=== PATIENT | female | born 1995 | race Caucasian/White ===

== ENCOUNTER 2017-06-08 08:56 | Emergency (ER) | payer MEDICAID ==
[2017-06-08 09:05] VITALS: BP 132/90; PULSE 86; RESP 16; TEMP 98
--- NOTE | 2017-06-08 09:29 | ED ---
General Adult HPI - General Chief complaint: Upper Respiratory Infection Stated complaint: Flu Time Seen by Provider: 06/08/17 09:13 Source: patient, RN notes reviewed Mode of arrival: ambulatory Limitations: no limitations - History of Present Illness Initial comments: Patient 22-year-old female who presents emergency room today with chief complaint of possible influenza. She does admit that she's been exposed to somebody with the flu. She states her symptoms started 4 days ago. Does admit some nausea no vomiting. Admits to chills and bodyaches. States that she's been using [id number] medications for her symptoms. Patient does admit to some cough congestion positive sputum production it's been green in color. She denies any other complaints or associated symptoms. Patient denies any recent shortness of breath, chest pain, back pain, abdominal pain, numbness or tingling, dysuria or hematuria, constipation or diarrhea, headaches or visual changes, or any other complaints. - Related Data Home Medications Medication Instructions Recorded Confirmed Dm/Acetaminophen/Doxylamine [Vicks 30 ml PO Q4H PRN 06/08/17 06/08/17 Nyquil Cold & Flu Liquid] Phenylephrine/Dm/Acetaminop/GG 30 ml PO Q4H PRN 06/08/17 06/08/17 [Vicks Dayquil Severe Cold-Flu] Previous Rx's Medication Instructions Recorded Ondansetron Odt [Zofran ODT] 4 mg PO Q8HR PRN #20 tab 06/08/17 Allergies Allergy/AdvReac Type Severity Reaction Status Date / Time No Known Allergies Allergy Verified 06/08/17 09:29 Review of Systems ROS Statement: Those systems with pertinent positive or pertinent negative responses have been documented in the HPI. ROS Other: All systems not noted in ROS Statement are negative. Past Medical History Past Medical History: No Reported History History of Any Multi-Drug Resistant Organisms: None Reported Past Surgical History: Tonsillectomy Past Psychological History: No Psychological Hx Reported Smoking Status: Never smoker Past Alcohol Use History: Occasional Past Drug Use History: None Reported General Exam - General Exam Comments Initial Comments: General: The patient is awake and alert, in no distress, and does not appear acutely ill. Eye: Pupils are equal, round and reactive to light, extra-ocular movements are intact. No nystagmus. There is normal conjunctiva bilaterally. No signs of icterus. Ears, nose, mouth and throat: There are moist mucous membranes and no oral lesions. Neck: The neck is supple, there is no tenderness or JVD. Cardiovascular: There is a regular rate and rhythm. No murmur, rub or gallop is appreciated. Respiratory: Lungs are clear to auscultation, respirations are non-labored, breath sounds are equal. No wheezes, stridor, rales, or rhonchi. Musculoskeletal: Normal ROM, no tenderness. Strength 5/5. Sensation intact. Pulses equal bilaterally 2+. Neurological: A&O x 3. CN II-XII intact, There are no obvious motor or sensory deficits. Coordination appears grossly intact. Speech is normal. Skin: Skin is warm and dry and no rashes or lesions are noted. Psychiatric: Cooperative, appropriate mood & affect, normal judgment. Limitations: no limitations Course Vital Signs 06/08/17 09:01 Temperature 98.0 F Pulse Rate 86 Respiratory 16 Rate Blood Pressure 132/90 O2 Sat by Pulse 99 Oximetry Medical Decision Making - Medical Decision Making Patient reexamined at this time shows no signs of distress. Resting comfortably. Patient does admit that the symptoms are 4 days ago. Does have body aches chills with cough congestion and some nausea. Was discussed about possible influenza. Was discussed about testing. At this time patient was outside the window for Tamiflu. She declined the nasal swab. Chest x-ray performed rule out pneumonia. Chest x-rays negative. Patient advised to increase oral fluids. Patient will be given nausea medication for symptoms. Otherwise follow-up family doctor return if symptoms increase worsen. - Lab Data Lab Results 06/08/17 Range/Units 09:30 Urine HCG, Qual Not Detected (Not Detectd) Disposition Clinical Impression: Influenza Disposition: HOME SELF-CARE Condition: Good Instructions: Influenza (ED) Additional Instructions: Please use medication as discussed. Please follow-up with family doctor in the next 2 days of symptoms have not improved. Please return to emergency room if the symptoms increase or worsen or for any other concerns. Prescriptions: Ondansetron Odt [Zofran ODT] 4 mg PO Q8HR PRN #20 tab PRN Reason: Nausea Referrals: Joe Morgan DO [Primary Care Provider] - 1-2 days Time of Disposition: 11:08
--- NOTE | 2017-06-08 10:44 | XR ---
EXAMINATION TYPE: XR chest 2V DATE OF EXAM: 06/08/2017 COMPARISON: None HISTORY: 22-year-old female with cough and congestion TECHNIQUE: PA and lateral views FINDINGS: The cardiomediastinal silhouette, aorta, and pulmonary vasculature are within normal limits. Lungs an d pleural spaces are clear. IMPRESSION: No acute cardiopulmonary process.
== END 2017-06-08 11:13 | disposition home or self-care (01) ==
LOC: EC 08:56
DX: J11.1 Influenza due to unidentified influenza virus with other respiratory manifestations (principal)
CPT/HCPCS: 71046; 81025; 99283

== ENCOUNTER → 2018-01-04 | Outpatient (CLI) | payer MEDICAID ==
--- NOTE | 2018-01-04 11:16 | USB ---
Reason for exam: clinical finding. Indicated problem(s): lump or thickening in the left breast. Physical Findings: Nurse Summary: left breast palpable 7 o'clock, 1 x 1cm, movable, tender, soft (nurse ts). US Breast LT Left complete breast ultrasound includes all four quadrants, the retroareolar region and axilla. Finding demonstrates a 2.9cm isoechoic area, possible lipoma 7 o'clock. These results were verbally communicated with the patient and result sheet given to the patient on 01/04/18. ASSESSMENT: Benign, BI-RAD 2 RECOMMENDATION: Routine screening mammogram of both breasts at age 39. Manage patient on a clinical basis.
== END | disposition home or self-care (01) ==
LOC: RADUSWWP 10:13
PROVIDERS: ATTEND Obstetrics & Gynecology
DX: N63.20 Unspecified lump in the left breast, unspecified quadrant (principal)

== ENCOUNTER 2018-02-28 20:28 | Emergency (ER) | payer MEDICAID ==
[2018-02-28] MEDS ORDERED: SODIUM CHLORIDE 0.9% 1,000 ML IV STA (21:55)
[2018-02-28] MEDS ORDERED: ACETAMINOPHEN TAB 500 MG TAB PO STA (22:17)
[2018-02-28] MEDS ORDERED: ONDANSETRON 4 MG/2 ML VIAL IVP STA (22:17)
[2018-02-28 22:20] LABS: Basophils % (A) 1 %; Eosinophils # (A) 0.1 k/uL (0-0.7); Eosinophils % (A) 2 %; HCT 42.1 % (34.0-46.0); Lymphocytes # (A) 1.5 k/uL (1.0-4.8); Lymphocytes % (A) 21 %; MCH 25.5 pg (25.0-35.0); MCHC 30.9 g/dL (31.0-37.0); MCV 82.5 fL (80.0-100.0); Mean Platelet Volume 6.6; Monocytes # (A) 0.4 k/uL (0-1.0); Monocytes % (A) 6 %; Neutrophils # (A) 4.8 k/uL (1.3-7.7); Neutrophils % (A) 69 %; Platelet Count 340 k/uL (150-450); RBC 5.11 m/uL (3.80-5.40); RDW 14.5 % (11.5-15.5)
[2018-02-28 22:29] LABS: ALT 19 U/L (9-52); AST 23 U/L (14-36); Albumin 4.1 g/dL (3.5-5.0); Alkaline Phosphatase 52 U/L (38-126); Amylase 54 U/L (30-110); Anion Gap 11 mmol/L; Blood Urea Nitrogen 12 mg/dL (7-17); Calcium 9.3 mg/dL (8.4-10.2); Carbon Dioxide 24 mmol/L (22-30); Chloride 105 mmol/L (98-107); Glucose 80 mg/dL (74-99); Lipase 82 U/L (23-300); Potassium 4.5 mmol/L (3.5-5.1); Sodium 140 mmol/L (137-145); Total Bilirubin 0.4 mg/dL (0.2-1.3); Total Protein 7.7 g/dL (6.3-8.2)
[2018-02-28 22:31] LABS: Appearance,Urine Clear (Clear); Bilirubin,Urine Negative (Negative); Blood,Urine Small (Negative); Calcium Oxalate Crystals,Urine Occasional /hpf; Color,Urine Yellow; Glucose,Urine (UA) Negative (Negative); Ketones,Urine Negative (Negative); Leukocyte Esterase,Urine Negative (Negative); Mucus,Urine Occasional /hpf; Nitrite,Urine Negative (Negative); Protein,Urine Trace (Negative); RBC,Urine 26 /hpf (0-5); Specific Gravity,Urine 1.024 (1.001-1.035); Squamous Epithelial Cell,Urine <1 /hpf (0-4)
[2018-02-28] MEDS ORDERED: KETOROLAC 30 MG/ML 1 ML VIAL IVP STA (22:48)
--- NOTE | 2018-02-28 23:07 | CT ---
EXAMINATION TYPE: CT abdomen pelvis wo con DATE OF EXAM: 02/28/2018 COMPARISON: None HISTORY: No prior, BAILEY with nausea, vomiting, diarrhea and right flank pain, low grade fever, history of renal stones, neg hcg, renal stone protocol CT DLP: 1299.40 mGycm Automated exposure control for dose reduction was used. TECHNIQUE: Helical acquisition of images was performed from the lung bases through the pelvis. FINDINGS: Lung bases are clear. There is no pleural effusion. Heart size is normal. There is no pericardial eff usion. Liver spleen pancreas gallbladder appear normal. Bile ducts are not dilated. Stomach appears normal. There is no adrenal mass. Kidneys have normal size and contour. There is no hydronephrosis. There is no retroperitoneal adenopathy. There are multiple enlarged mesenteric lymph nodes that measure up to 1.5 cm. The bladder is almost empty. Uterus is anteverted. The bony pelvis appears intact. Lumbar spi ne is intact. There is no evidence of a pelvic mass. There is no free fluid in the abdomen and pelvis . Appendix appears normal. I see no intestinal wall thickening. There are no dilated loops. There is 1 cm accessory spleen. Abdo yolis soft tissues are unremarkable. IMPRESSION: NO EVIDENCE OF RENAL STONE OR OBSTRUCTION. NO FREE FLUID. THERE IS MILD SMALL BOWEL MESENTERIC LYMPHADENOPATHY THAT IS NONSPECIFIC AND COULD RELATE TO INTESTIN AL INFLAMMATORY PROCESS.
[2018-02-28 23:44] VITALS: BP 110/63; PULSE 78; RESP 16; TEMP 99
--- NOTE | 2018-02-28 23:57 | ED ---
General Adult HPI - General Source: patient, RN notes reviewed Mode of arrival: ambulatory Limitations: no limitations <Oc Perez P - Last Filed: 03/01/18 00:27> <Trinidad Cody P - Last Filed: 03/01/18 03:55> - General Chief complaint: Nausea/Vomiting/Diarrhea Stated complaint: vomiting Time Seen by Provider: 02/28/18 21:18 - History of Present Illness Initial comments: 22-year-old female presents to the emergency department for multiple complaints. Patient states that starting yesterday around 3 PM she began to have nausea and vomiting. She states she also had diarrhea at that time. She states the diarrhea has resolved. She denies any abdominal pain. She states she also has a headache as well as achiness and right flank pain. Patient states she does have a history of migraines. She states her headache feels somewhat different than her migraines but she does have photophobia related. Patient states she usually gets 2-3 migraines a year. Patient states she has had multiple bouts of vomiting, diarrhea, and headache over the past month. She states it generally lasts for a few days and then subsides. She denies fevers or chills at home. She denies any urinary symptoms. She states she does have a history of kidney stones and felt like this the last time she had a stone. She states she would like to be evaluated for a stone at this time. Patient has no other complaints at this time including shortness of breath, chest pain, abdominal pain, or visual changes. (Oc Perez) - Related Data Home Medications Medication Instructions Recorded Confirmed LORazepam [Ativan] 0.5 mg PO HS 02/28/18 02/28/18 Levonorgestrel-Ethin Estradiol 1 tab PO DAILY 02/28/18 02/28/18 [Levora-28 Tablet] Levothyroxine Sodium [Synthroid] 50 mcg PO DAILY 02/28/18 02/28/18 Venlafaxine HCl ER [Effexor XR] 150 mg PO DAILY 02/28/18 02/28/18 lamoTRIgine [LaMICtal] 50 mg PO BID 02/28/18 02/28/18 Previous Rx's Medication Instructions Recorded Ondansetron [Zofran ODT] 4 mg PO Q8HR PRN #15 tab 03/01/18 Allergies Allergy/AdvReac Type Severity Reaction Status Date / Time No Known Allergies Allergy Verified 02/28/18 21:45 Review of Systems ROS Other: All systems not noted in ROS Statement are negative. <Oc Perez P - Last Filed: 03/01/18 00:27> ROS Other: All systems not noted in ROS Statement are negative. <Unruly Codyssica P - Last Filed: 03/01/18 03:55> ROS Statement: Those systems with pertinent positive or pertinent negative responses have been documented in the HPI. Past Medical History Past Medical History: Thyroid Disorder History of Any Multi-Drug Resistant Organisms: None Reported Past Surgical History: Tonsillectomy Past Psychological History: Anxiety, Depression Smoking Status: Never smoker Past Alcohol Use History: Occasional Past Drug Use History: None Reported <Oc Perez P - Last Filed: 03/01/18 00:27> General Exam Limitations: no limitations General appearance: alert, in no apparent distress Head exam: Present: atraumatic, normocephalic, normal inspection Eye exam: Present: normal appearance, PERRL, EOMI. Absent: scleral icterus, conjunctival injection, periorbital swelling ENT exam: Present: normal exam, mucous membranes moist Neck exam: Present: normal inspection, full ROM. Absent: tenderness, meningismus, lymphadenopathy Respiratory exam: Present: normal lung sounds bilaterally. Absent: respiratory distress, wheezes, rales, rhonchi, stridor Cardiovascular Exam: Present: regular rate, normal rhythm, normal heart sounds. Absent: systolic murmur, diastolic murmur, rubs, gallop, clicks GI/Abdominal exam: Present: soft, normal bowel sounds. Absent: distended, tenderness, guarding, rebound, rigid Neurological exam: Present: alert, oriented X3, CN II-XII intact, normal gait Expanded Patient oriented to: Present: person, place, time Speech: Present: fluid speech Cranial nerves: EOM's Intact: Normal, Nystagmus: Normal, Facial Sensation: Normal Sensory exam: Upper Extremity Light Touch: Normal, Upper Extremity Pin Prick: Normal, Lower Extremity Light Touch: Normal, Lower Extremity Pin Prick: Normal Motor strength exam: RUE: 5, LUE: 5, RLE: 5, LLE: 5 Eye Response: (4) open spontaneously Motor Response: (6) obeys commands Verbal Response: (5) oriented [place] Total: 15 Psychiatric exam: Present: normal affect, normal mood <Oc Perez P - Last Filed: 03/01/18 00:27> Vital Signs 02/28/18 02/28/18 20:45 23:40 Temperature 99.4 F 99.0 F Pulse Rate 115 H 78 Respiratory 18 16 Rate Blood Pressure 125/82 110/63 O2 Sat by Pulse 94 L 97 Oximetry Medical Decision Making - Lab Data Result diagrams: 02/28/18 21:31 02/28/18 21:31 <Oc Perez P - Last Filed: 03/01/18 00:27> - Lab Data Result diagrams: 02/28/18 21:31 02/28/18 21:31 <Trinidad Cody P - Last Filed: 03/01/18 03:55> - Medical Decision Making 22-year-old female presents to the emergency department for complaints. Patient is experiencing nausea and vomiting since yesterday. She also has had diarrhea starting which has now resolved patient admits to a mild headache and states she has a history of migraines. Patient does have photophobia at this time. Patient also complains of flank pain and achiness. On exam patient does not have any abdominal tenderness and denies abdominal pain. She does not have any CVA tenderness. She is well appearing. She does have a low-grade temperature and was given Tylenol. CBC and CMP are unremarkable. Urine does not show any evidence of infection. Influenza is negative. CT abdomen and pelvis without contrast was ordered because patient didn't want to be evaluated for kidney stones as her symptoms were consistent with kidney stones in the past. On CT there is no evidence of renal stone. However there is mild small bowel mesenteric lymphadenopathy. Due to patient's vomiting and diarrhea as well as low-grade fever she may have a viral stratus. I did also discuss possibility of food ALLERGY. On reevaluation patient states she is having much better after receiving fluids and medication. Patient will be given Zofran at home for use. She will follow up with GI in 1-2 days. Mother aware to monitor for worsening fever or any other worsening symptoms and to return if these occur. (Oc Perez) I was available for consultation in the emergency department. The history and physical exam were done by the midlevel provider. I was consulted for this patient's care. I reviewed the case with the midlevel provider and based on their presentation of the patient, I agree with the assessment, medical decision making and plan of care as documented. (Trinidad Cody) - Lab Data Lab Results 02/28/18 02/28/18 02/28/18 Range/Units 21:31 21:31 21:31 WBC 7.0 (3.8-10.6) k/uL RBC 5.11 (3.80-5.40) m/uL Hgb 13.0 (11.4-16.0) gm/dL Hct 42.1 (34.0-46.0) % MCV 82.5 (80.0-100.0) fL MCH 25.5 (25.0-35.0) pg MCHC 30.9 L (31.0-37.0) g/dL RDW 14.5 (11.5-15.5) % Plt Count 340 (150-450) k/uL Neutrophils % 69 % Lymphocytes % 21 % Monocytes % 6 % Eosinophils % 2 % Basophils % 1 % Neutrophils # 4.8 (1.3-7.7) k/uL Lymphocytes # 1.5 (1.0-4.8) k/uL Monocytes # 0.4 (0-1.0) k/uL Eosinophils # 0.1 (0-0.7) k/uL Basophils # 0.0 (0-0.2) k/uL Sodium 140 (137-145) mmol/L Potassium 4.5 (3.5-5.1) mmol/L Chloride 105 (98-107) mmol/L Carbon Dioxide 24 (22-30) mmol/L Anion Gap 11 mmol/L BUN 12 (7-17) mg/dL Creatinine 0.88 (0.52-1.04) mg/dL Est GFR (CKD-EPI)AfAm >90 (>60 ml/min/1.73 sqM) Est GFR (CKD-EPI)NonAf >90 (>60 ml/min/1.73 sqM) Glucose 80 (74-99) mg/dL Plasma Lactic Acid Von 1.9 (0.7-2.0) mmol/L Calcium 9.3 (8.4-10.2) mg/dL Total Bilirubin 0.4 (0.2-1.3) mg/dL AST 23 (14-36) U/L ALT 19 (9-52) U/L Alkaline Phosphatase 52 (38-126) U/L Total Protein 7.7 (6.3-8.2) g/dL Albumin 4.1 (3.5-5.0) g/dL Amylase 54 (30-110) U/L Lipase 82 (23-300) U/L Urine Color Urine Appearance (Clear) Urine pH (5.0-8.0) Ur Specific [place] (1.001-1.035) Urine Protein (Negative) Urine Glucose (UA) (Negative) Urine Ketones (Negative) Urine Blood (Negative) Urine Nitrite (Negative) Urine Bilirubin (Negative) Urine Urobilinogen (<2.0) mg/dL Ur Leukocyte Esterase (Negative) Urine RBC (0-5) /hpf Ur Squamous Epith Cells (0-4) /hpf Calcium Oxalate Crystal (None) /hpf Urine Mucus (None) /hpf Urine HCG, Qual (Not Detectd) Influenza Type A RNA (Not Detectd) Influenza Type B (PCR) (Not Detectd) 02/28/18 02/28/18 02/28/18 Range/Units 22:13 22:13 23:08 WBC (3.8-10.6) k/uL RBC (3.80-5.40) m/uL Hgb (11.4-16.0) gm/dL Hct (34.0-46.0) % MCV (80.0-100.0) fL MCH (25.0-35.0) pg MCHC (31.0-37.0) g/dL RDW (11.5-15.5) % Plt Count (150-450) k/uL Neutrophils % % Lymphocytes % % Monocytes % % Eosinophils % % Basophils % % Neutrophils # (1.3-7.7) k/uL Lymphocytes # (1.0-4.8) k/uL Monocytes # (0-1.0) k/uL Eosinophils # (0-0.7) k/uL Basophils # (0-0.2) k/uL Sodium (137-145) mmol/L Potassium (3.5-5.1) mmol/L Chloride (98-107) mmol/L Carbon Dioxide (22-30) mmol/L Anion Gap mmol/L BUN (7-17) mg/dL Creatinine (0.52-1.04) mg/dL Est GFR (CKD-EPI)AfAm (>60 ml/min/1.73 sqM) Est GFR (CKD-EPI)NonAf (>60 ml/min/1.73 sqM) Glucose (74-99) mg/dL Plasma Lactic Acid Von (0.7-2.0) mmol/L Calcium (8.4-10.2) mg/dL Total Bilirubin (0.2-1.3) mg/dL AST (14-36) U/L ALT (9-52) U/L Alkaline Phosphatase (38-126) U/L Total Protein (6.3-8.2) g/dL Albumin (3.5-5.0) g/dL Amylase (30-110) U/L Lipase (23-300) U/L Urine Color Yellow Urine Appearance Clear (Clear) Urine pH 6.0 (5.0-8.0) Ur Specific [place] 1.024 (1.001-1.035) Urine Protein Trace H (Negative) Urine Glucose (UA) Negative (Negative) Urine Ketones Negative (Negative) Urine Blood Small H (Negative) Urine Nitrite Negative (Negative) Urine Bilirubin Negative (Negative) Urine Urobilinogen 2.0 (<2.0) mg/dL Ur Leukocyte Esterase Negative (Negative) Urine RBC 26 H (0-5) /hpf Ur Squamous Epith Cells <1 (0-4) /hpf Calcium Oxalate Crystal Occasional H (None) /hpf Urine Mucus Occasional H (None) /hpf Urine HCG, Qual Not Detected (Not Detectd) Influenza Type A RNA Not Detected (Not Detectd) Influenza Type B (PCR) Not Detected (Not Detectd) Disposition Is patient prescribed a controlled substance at d/c from ED?: No Time of Disposition: 00:17 <Oc Perez P - Last Filed: 03/01/18 00:27> <Trinidad Cody P - Last Filed: 03/01/18 03:55> Clinical Impression: Mesenteric lymphadenitis, Nausea, vomiting, and diarrhea Disposition: HOME SELF-CARE Condition: Good Instructions: Acute Nausea and Vomiting (ED) Additional Instructions: Please take Zofran for nausea. Please take Motrin and Tylenol for fever. Follow up with GI in 1-2 days. Keep a food diary until you see GI. Return to the emergency department if you have any worsening symptoms. Prescriptions: Ondansetron [Zofran ODT] 4 mg PO Q8HR PRN #15 tab PRN Reason: Nausea Referrals: Joe Morgan DO [Primary Care Provider] - 1-2 days Deondre Dominguez MD [STAFF PHYSICIAN] - 1-2 days
[2018-03-01] MEDS ORDERED: ONDANSETRON 4 MG ODT STARTER PACK 2 TAB BTL PO STA (00:30)
== END 2018-03-01 00:36 | disposition home or self-care (01) ==
LOC: EC 20:28
DX: I88.0 Nonspecific mesenteric lymphadenitis (principal); R51 Headache; H53.149 Visual discomfort, unspecified; E07.9 Disorder of thyroid, unspecified; F41.9 Anxiety disorder, unspecified; F32.9 Major depressive disorder, single episode, unspecified; Z79.899 Other long term (current) drug therapy; Z79.3 Long term (current) use of hormonal contraceptives
CPT/HCPCS: 99284; 96374; 96375; 96361; 36415; 80053; 82150; 83605; 83690; 85025; 81001; 81025; 87502; 74176; J2405; J1885; S0119

== ENCOUNTER 2018-11-06 17:51 | Emergency (ER) | payer MEDICAID ==
[2018-11-06 18:05] VITALS: RESP 18
[2018-11-06] MEDS ORDERED: ONDANSETRON 4 MG/2 ML VIAL IVP STA (18:56)
[2018-11-06] MEDS ORDERED: SODIUM CHLORIDE 0.9% 1,000 ML IV ONE (18:56)
[2018-11-06] MEDS ORDERED: KETOROLAC 30 MG/ML 1 ML VIAL IVP STA (18:56)
[2018-11-06] MEDS ORDERED: MORPHINE SULFATE 4 MG/ML SYRINGE IVP STA (18:56)
--- NOTE | 2018-11-06 19:10 | ED ---
Abdominal Pain HPI - General Chief Complaint: Abdominal Pain Stated Complaint: kidney pain Time Seen by Provider: 11/06/18 18:32 Source: patient Mode of arrival: ambulatory - History of Present Illness Initial Comments: Patient is a 23-year-old female presents with a chief complaint of right-sided flank pain. She says this started at 3:00 this afternoon. She has a history of kidney stones on the left side and states this feels similar. She cannot identify an inciting incident. No aggravating or alleviating factors. Pain is characterized as sharp. Patient denies fever, chills, admits to nausea and vomiting. She denies dysuria or frequency. - Related Data Home Medications Medication Instructions Recorded Confirmed Levothyroxine Sodium [Synthroid] 50 mcg PO DAILY 02/28/18 11/06/18 Venlafaxine HCl ER [Effexor XR] 150 mg PO DAILY 02/28/18 11/06/18 [place] 1 tab PO DAILY 11/06/18 11/06/18 QUEtiapine [SEROquel] 25 mg PO HS 11/06/18 11/06/18 lamoTRIgine [LaMICtal] 150 mg PO BID 11/06/18 11/06/18 Previous Rx's Medication Instructions Recorded HYDROcodone/APAP 5-325MG [[place] 1 tab PO Q6HR PRN 3 Days #12 tab 11/06/18 5-325] Ibuprofen [Motrin] 800 mg PO TID #20 tab 11/06/18 Ondansetron Odt [Zofran Odt] 4 mg PO Q8HR PRN #12 tab 11/06/18 Allergies Allergy/AdvReac Type Severity Reaction Status Date / Time Milk Containing Products Allergy Nausea & Verified 11/06/18 18:45 [Dairy] Vomiting & Diarrhea Review of Systems ROS Statement: Those systems with pertinent positive or pertinent negative responses have been documented in the HPI. ROS Other: All systems not noted in ROS Statement are negative. Gastrointestinal: Reports: abdominal pain, nausea, vomiting Musculoskeletal: Reports: back pain Past Medical History Past Medical History: Thyroid Disorder Additional Past Medical History / Comment(s): kidney stones History of Any Multi-Drug Resistant Organisms: None Reported Past Surgical History: Tonsillectomy Past Psychological History: Anxiety, Depression Smoking Status: Never smoker Past Alcohol Use History: Occasional Past Drug Use History: None Reported General Exam Limitations: no limitations General appearance: alert, in no apparent distress Head exam: Present: atraumatic, normocephalic Eye exam: Present: normal appearance ENT exam: Present: normal exam Neck exam: Present: normal inspection Respiratory exam: Present: normal lung sounds bilaterally. Absent: respiratory distress, wheezes Cardiovascular Exam: Present: regular rate, normal rhythm GI/Abdominal exam: Present: soft, tenderness (Patient has tenderness to palpation in the epigastric region, and the suprapubic region). Absent: distended Rectal exam: Present: deferred Extremities exam: Present: normal inspection Back exam: Present: normal inspection, CVA tenderness (R). Absent: CVA tenderness (L) Neurological exam: Present: alert, oriented X3 Psychiatric exam: Present: normal affect, normal mood Skin exam: Present: warm, dry, intact Course Vital Signs 11/06/18 18:02 Temperature 97.6 F Pulse Rate 69 Respiratory 18 Rate Blood Pressure 141/93 O2 Sat by Pulse 95 Oximetry Medical Decision Making - Medical Decision Making Patient presents with a chief complaint of flank pain. On initial evaluation, vitals are stable, patient is in mild to moderate distress secondary to pain. Concern for a structural renal stone this time. Patient to be evaluated with basic labs including urinalysis and urine test. She'll be sent for a computed tomography scan of the abdomen and pelvis without contrast. She was given fluids, Toradol, morphine and Zofran. 9:[address] shows a small distal ureteral calculus in the distal ureter. labs are unremarkable, no evidence of UTI. on re-evaluation, patient feels better. at this time, she is stable for discharge. she was instructed to follow up with [facility] in 1-2 days, return to the ED if sx worsen or change. - Lab Data Result diagrams: 11/06/18 19:20 11/06/18 19:20 Lab Results 11/06/18 11/06/18 11/06/18 Range/Units 19:20 19:20 20:15 WBC 16.3 H (3.8-10.6) k/uL RBC 5.15 (3.80-5.40) m/uL Hgb 12.9 (11.4-16.0) gm/dL Hct 39.8 (34.0-46.0) % MCV 77.3 L (80.0-100.0) fL MCH 25.1 (25.0-35.0) pg MCHC 32.5 (31.0-37.0) g/dL RDW 14.8 (11.5-15.5) % Plt Count 379 (150-450) k/uL Neutrophils % 78 % Lymphocytes % 15 % Monocytes % 5 % Eosinophils % 1 % Basophils % 0 % Neutrophils # 12.8 H (1.3-7.7) k/uL Lymphocytes # 2.4 (1.0-4.8) k/uL Monocytes # 0.7 (0-1.0) k/uL Eosinophils # 0.1 (0-0.7) k/uL Basophils # 0.1 (0-0.2) k/uL Microcytosis Slight Sodium 140 (137-145) mmol/L Potassium 4.4 (3.5-5.1) mmol/L Chloride 107 (98-107) mmol/L Carbon Dioxide 19 L (22-30) mmol/L Anion Gap 14 mmol/L BUN 10 (7-17) mg/dL Creatinine 0.84 (0.52-1.04) mg/dL Est GFR (CKD-EPI)AfAm >90 (>60 ml/min/1.73 sqM) Est GFR (CKD-EPI)NonAf >90 (>60 ml/min/1.73 sqM) Glucose 88 (74-99) mg/dL Calcium 9.4 (8.4-10.2) mg/dL Total Bilirubin 0.6 (0.2-1.3) mg/dL AST 28 (14-36) U/L ALT 16 (9-52) U/L Alkaline Phosphatase 74 (38-126) U/L Total Protein 8.1 (6.3-8.2) g/dL Albumin 4.5 (3.5-5.0) g/dL Urine Color Urine Appearance (Clear) Urine pH (5.0-8.0) Ur Specific [place] (1.001-1.035) Urine Protein (Negative) Urine Glucose (UA) (Negative) Urine Ketones (Negative) Urine Blood (Negative) Urine Nitrite (Negative) Urine Bilirubin (Negative) Urine Urobilinogen (<2.0) mg/dL Ur Leukocyte Esterase (Negative) Urine RBC (0-5) /hpf Urine WBC (0-5) /hpf Ur Squamous Epith Cells (0-4) /hpf Urine Mucus (None) /hpf Urine HCG, Qual Not Detected (Not Detectd) 11/06/18 Range/Units 20:15 WBC (3.8-10.6) k/uL RBC (3.80-5.40) m/uL Hgb (11.4-16.0) gm/dL Hct (34.0-46.0) % MCV (80.0-100.0) fL MCH (25.0-35.0) pg MCHC (31.0-37.0) g/dL RDW (11.5-15.5) % Plt Count (150-450) k/uL Neutrophils % % Lymphocytes % % Monocytes % % Eosinophils % % Basophils % % Neutrophils # (1.3-7.7) k/uL Lymphocytes # (1.0-4.8) k/uL Monocytes # (0-1.0) k/uL Eosinophils # (0-0.7) k/uL Basophils # (0-0.2) k/uL Microcytosis Sodium (137-145) mmol/L Potassium (3.5-5.1) mmol/L Chloride (98-107) mmol/L Carbon Dioxide (22-30) mmol/L Anion Gap mmol/L BUN (7-17) mg/dL Creatinine (0.52-1.04) mg/dL Est GFR (CKD-EPI)AfAm (>60 ml/min/1.73 sqM) Est GFR (CKD-EPI)NonAf (>60 ml/min/1.73 sqM) Glucose (74-99) mg/dL Calcium (8.4-10.2) mg/dL Total Bilirubin (0.2-1.3) mg/dL AST (14-36) U/L ALT (9-52) U/L Alkaline Phosphatase (38-126) U/L Total Protein (6.3-8.2) g/dL Albumin (3.5-5.0) g/dL Urine Color Yellow Urine Appearance Clear (Clear) Urine pH 7.0 (5.0-8.0) Ur Specific [place] 1.011 (1.001-1.035) Urine Protein Negative (Negative) Urine Glucose (UA) Negative (Negative) Urine Ketones Trace H (Negative) Urine Blood Small H (Negative) Urine Nitrite Negative (Negative) Urine Bilirubin Negative (Negative) Urine Urobilinogen <2.0 (<2.0) mg/dL Ur Leukocyte Esterase Negative (Negative) Urine RBC 12 H (0-5) /hpf Urine WBC 3 (0-5) /hpf Ur Squamous Epith Cells <1 (0-4) /hpf Urine Mucus Rare H (None) /hpf Urine HCG, Qual (Not Detectd) Disposition Clinical Impression: Calculus of kidney Disposition: HOME SELF-CARE Condition: Good Instructions (If sedation given, give patient instructions): Kidney Stones (ED) Is patient prescribed a controlled substance at d/c from ED?: Yes When asked, does pt state using other controlled substances?: No If prescribed controlled substance>3 days was MAPS reviewed?: Prescribed <3 Days If opioid is for acute pain is fill amount 7 days or less?: Yes If Rx opioid, was Start Talking consent form obtained?: Yes Referrals: Joe Morgan DO [Primary Care Provider] - 1-2 days
[2018-11-06 19:59] LABS: Basophils # (A) 0.1 k/uL (0-0.2); Basophils % (A) 0 %; Eosinophils # (A) 0.1 k/uL (0-0.7); Eosinophils % (A) 1 %; HCT 39.8 % (34.0-46.0); HGB 12.9 gm/dL (11.4-16.0); Lymphocytes # (A) 2.4 k/uL (1.0-4.8); Lymphocytes % (A) 15 %; MCH 25.1 pg (25.0-35.0); MCHC 32.5 g/dL (31.0-37.0); MCV 77.3 fL (80.0-100.0); Mean Platelet Volume 6.5; Microcytosis Slight; Monocytes # (A) 0.7 k/uL (0-1.0); Monocytes % (A) 5 %; Neutrophils # (A) 12.8 k/uL (1.3-7.7); Neutrophils % (A) 78 %; Platelet Count 379 k/uL (150-450); RBC 5.15 m/uL (3.80-5.40); RDW 14.8 % (11.5-15.5); WBC 16.3 k/uL (3.8-10.6)
[2018-11-06 20:03] LABS: ALT 16 U/L (9-52); AST 28 U/L (14-36); African American GFR (CKD) >90 (>60 ml/min/1.73 sqM); Albumin 4.5 g/dL (3.5-5.0); Alkaline Phosphatase 74 U/L (38-126); Anion Gap 14 mmol/L; Blood Urea Nitrogen 10 mg/dL (7-17); Calcium 9.4 mg/dL (8.4-10.2); Carbon Dioxide 19 mmol/L (22-30); Chloride 107 mmol/L (98-107); Glucose 88 mg/dL (74-99); Potassium 4.4 mmol/L (3.5-5.1); Sodium 140 mmol/L (137-145); Total Bilirubin 0.6 mg/dL (0.2-1.3); Total Protein 8.1 g/dL (6.3-8.2)
[2018-11-06 20:46] LABS: Appearance,Urine Clear (Clear); Bilirubin,Urine Negative (Negative); Blood,Urine Small (Negative); Color,Urine Yellow; Glucose,Urine (UA) Negative (Negative); Ketones,Urine Trace (Negative); Leukocyte Esterase,Urine Negative (Negative); Mucus,Urine Rare /hpf; Nitrite,Urine Negative (Negative); Protein,Urine Negative (Negative); RBC,Urine 12 /hpf (0-5); Specific Gravity,Urine 1.011 (1.001-1.035); Squamous Epithelial Cell,Urine <1 /hpf (0-4); Urobilinogen,Urine <2.0 mg/dL (<2.0)
--- NOTE | 2018-11-06 21:32 | CT ---
EXAMINATION TYPE: CT renal stones wo con DATE OF EXAM: 11/06/2018 HISTORY: Right side flank pain. CT DLP: 1511.4 mGycm. Automated Exposure Control for Dose Reduction was Utilized. TECHNIQUE: CT scan of the abdomen and pelvis is performed without oral or IV contrast. COMPARISON: 02/28/2018 FINDINGS: There is some patchy atelectasis at the posterior lung bases. Liver spleen pancreas appear normal. Gallbladder is large. Bile ducts are not dilated. Gallbladder measures 4.5 cm in diameter. There is no adrenal mass. There is right-sided hydronephrosis and hydroureter. There is probably a 3 mm calculus at the right ureterovesical junction. Bladder distends smoothly. There is no retroperiton eal adenopathy. There is 2 mm calculus interpolar left kidney. There is 2 mm calculus central left ki dney. Appendix appears normal. There is no inguinal hernia. There is no ascites or free air. There is no me senteric edema. Lumbar spine appears intact. Bony pelvis is intact. IMPRESSION: Small nonobstructing left renal calculi appear new compared to old exam. Small obstructing calculus d istal right ureter is new compared to old exam. Normal appendix.
[2018-11-06 22:07] VITALS: BP 136/89; PULSE 75; TEMP 98.4
== END 2018-11-06 22:06 | disposition home or self-care (01) ==
LOC: EC 17:51
DX: N20.2 Calculus of kidney with calculus of ureter (principal); E07.9 Disorder of thyroid, unspecified; F32.9 Major depressive disorder, single episode, unspecified; F41.9 Anxiety disorder, unspecified; Z91.011 Allergy to milk products; Z79.3 Long term (current) use of hormonal contraceptives; Z79.890 Hormone replacement therapy; Z79.899 Other long term (current) drug therapy
CPT/HCPCS: 99284; 96374; 96375 ×2; 96361; 36415; 80053; 85025; 81001; 81025; 74150; J2270; J2405; J1885

== ENCOUNTER → 2018-12-08 | Outpatient (CLI) | payer MEDICAID ==
--- NOTE | 2018-12-08 09:53 | XR ---
EXAMINATION TYPE: XR KUB DATE OF EXAM: 12/08/2018 COMPARISON: 11/12/2014, CT scan 11/06/2018 HISTORY: Pain TECHNIQUE: One view abdominal series FINDINGS: The osseous structures are intact. The bowel gas pattern is nonspecific. No suspicious calcification s noted calcification in the left pelvis is present on the prior exam 2015 vascular.. IMPRESSION: 1. Nonspecific abdomen. Calcifications noted by CT scan are not well seen by standard x-ray
== END | disposition home or self-care (01) ==
LOC: RADXRMAIN 09:34
PROVIDERS: ATTEND Urology
DX: N94.89 Other specified conditions associated with female genital organs and menstrual cycle (principal)
CPT/HCPCS: 74018

== ENCOUNTER 2018-12-15 08:56 | Observation (INO) | payer MEDICAID ==
[2018-12-15] MEDS ORDERED: SODIUM CHLORIDE 0.9% 1,000 ML IV STA (09:01)
--- NOTE | 2018-12-15 09:02 | ED ---
GI Bleed HPI - General Chief complaint: GI Bleed Stated complaint: Vomiting blood Time Seen by Provider: 12/15/18 09:01 Source: patient Mode of arrival: ambulatory Limitations: no limitations - History of Present Illness Initial comments: 23-year-old female presenting today for chief complaint of blood in vomit. Patient states she has had chronic vomiting for the past few months, she initially thought it was a sensitivity to food. Patient states that the episodes usually occur in the morning. Patient states that about 4 days ago she episode of brown coffee like vomit. She states that today she had bright red blood mixed with brown coffee ground vomit. Other is a nurse was concerned that this was coffee-ground emesis concerning for upper GI bleed and recommended patient come to emergency department. She denies any chest pain shortness of b reath. She denies any severe abdominal pain she states there is an occasional crampy pain in the abdomen. Patient denies . She denies fevers recent travel. Remaining review of systems negative. Upon arrival patient is hemodynamically stable she appears nontoxic. - Related Data Home Medications Medication Instructions Recorded Confirmed Levothyroxine Sodium [Synthroid] 50 mcg PO DAILY 02/28/18 11/06/18 Venlafaxine HCl ER [Effexor XR] 150 mg PO DAILY 02/28/18 11/06/18 [place] 1 tab PO DAILY 11/06/18 11/06/18 QUEtiapine [SEROquel] 25 mg PO HS 11/06/18 11/06/18 lamoTRIgine [LaMICtal] 150 mg PO BID 11/06/18 11/06/18 Previous Rx's Medication Instructions Recorded HYDROcodone/APAP 5-325MG [[place] 1 tab PO Q6HR PRN 3 Days #12 tab 11/06/18 5-325] Ibuprofen [Motrin] 800 mg PO TID #20 tab 11/06/18 Ondansetron Odt [Zofran Odt] 4 mg PO Q8HR PRN #12 tab 11/06/18 Allergies Allergy/AdvReac Type Severity Reaction Status Date / Time Milk Containing Products Allergy Nausea & Verified 12/15/18 09:00 [Dairy] Vomiting & Diarrhea Review of Systems ROS Statement: Those systems with pertinent positive or pertinent negative responses have been documented in the HPI. ROS Other: All systems not noted in ROS Statement are negative. Past Medical History Past Medical History: Thyroid Disorder Additional Past Medical History / Comment(s): kidney stones History of Any Multi-Drug Resistant Organisms: None Reported Past Surgical History: Tonsillectomy Past Psychological History: Anxiety, Depression Smoking Status: Never smoker Past Alcohol Use History: Occasional Past Drug Use History: None Reported General Exam - General Exam Comments Initial Comments: General: The patient is awake and alert, in no distress Eye: Pupils are equal, round and reactive to light, extra-ocular movements are intact. No nystagmus. There is normal conjunctiva bilaterally. No signs of icterus. Ears, nose, mouth and throat: There are moist mucous membranes and no oral le sions. Neck: The neck is supple, there is no tenderness or JVD. Cardiovascular: There is a regular rate and rhythm. No murmur, rub or gallop is appreciated. Respiratory: Lungs are clear to auscultation, respirations are non-labored, breath sounds are equal. No wheezes, stridor, rales, or rhonchi. Gastrointestinal: Soft, non-distended, non-tender abdomen without masses or organomegaly noted. There is no rebound or guarding present. No CVA tenderness. Bowel sounds are unremarkable Musculoskeletal: Normal ROM, no tenderness. Strength 5/5. Sensation intact. Radial pulses equal bilaterally 2+. Neurological: A&O x 3. CN II-XII intact, There are no obvious motor or sensory deficits. Coordination appears grossly intact. Speech is normal. Skin: Skin is warm and dry and no rashes or lesions are noted. Psychiatric: Cooperative, appropriate mood & affect, normal judgment. Limitations: no limitations Course Vital Signs 12/15/18 12/15/18 08:57 11:08 Temperature 97.9 F 97.7 F Pulse Rate 71 67 Respiratory 20 16 Rate Blood Pressure 148/100 154/95 O2 Sat by Pulse 97 98 Oximetry Medical Decision Making - Medical Decision Making 23-year-old female presenting today for chief complaint of blood in vomit. Patient states she has had multiple abscesses of bright red blood today. Patient states she has had issues with cyclical vomiting. Patient states she has not been official diagnosis but this has been ongoing issue. Patient denies any significant abdominal pain. Patient denies any chest pain. Patient denies diarrhea. Patient denies fever. When the vomiting persisted she presented to the ER. Hemoglobin stable blood pressure stable upon arrival patient is hemodynamically stable. Patient does not appear acutely ill. However did begin complaining of epigastric pain. At this time chest x-ray was obtained revealing no evidence of pneumomediastinum. CT of the abdomen and pelvis obtained at this time revealing no acute abnormalities aside from kidney stones the patient was aware of. No obstructing stones. Patient was given Protonix and IV hydration emergency, as well as pain meds and antiemetics. I discussed the case with Dr. Dumont as well as accepting physician Dr. Goodson who accepted admission. GI on consult. Findings of CT as well as ultrasound is discussed with patient she was agreeable to admission - Lab Data Result diagrams: 12/15/18 09:21 12/15/18 09:21 Lab Results 12/15/18 12/15/18 12/15/18 Range/Units 09:21 09:21 09:21 WBC 11.8 H (3.8-10.6) k/uL RBC 4.98 (3.80-5.40) m/uL Hgb 12.6 (11.4-16.0) gm/dL Hct 39.6 (34.0-46.0) % MCV 79.6 L (80.0-100.0) fL MCH 25.2 (25.0-35.0) pg MCHC 31.7 (31.0-37.0) g/dL RDW 16.1 H (11.5-15.5) % Plt Count 388 (150-450) k/uL Neutrophils % 69 % Lymphocytes % 22 % Monocytes % 4 % Eosinophils % 3 % Basophils % 1 % Neutrophils # 8.2 H (1.3-7.7) k/uL Lymphocytes # 2.6 (1.0-4.8) k/uL Monocytes # 0.5 (0-1.0) k/uL Eosinophils # 0.3 (0-0.7) k/uL Basophils # 0.1 (0-0.2) k/uL Anisocytosis Slight PT 10.7 (9.0-12.0) sec INR 1.0 (<1.2) APTT 23.2 (22.0-30.0) sec Sodium 142 (137-145) mmol/L Potassium 4.2 (3.5-5.1) mmol/L Chloride 108 H (98-107) mmol/L Carbon Dioxide 21 L (22-30) mmol/L Anion Gap 13 mmol/L BUN 7 (7-17) mg/dL Creatinine 0.81 (0.52-1.04) mg/dL Est GFR (CKD-EPI)AfAm >90 (>60 ml/min/1.73 sqM) Est GFR (CKD-EPI)NonAf >90 (>60 ml/min/1.73 sqM) Glucose 107 H (74-99) mg/dL Calcium 9.4 (8.4-10.2) mg/dL Total Bilirubin 0.3 (0.2-1.3) mg/dL AST 14 (14-36) U/L ALT 17 (9-52) U/L Alkaline Phosphatase 58 (38-126) U/L Troponin I (0.000-0.034) ng/mL Total Protein 7.5 (6.3-8.2) g/dL Albumin 4.2 (3.5-5.0) g/dL Urine Color Urine Appearance (Clear) Urine pH (5.0-8.0) Ur Specific [place] (1.001-1.035) Urine Protein (Negative) Urine Glucose (UA) (Negative) Urine Ketones (Negative) Urine Blood (Negative) Urine Nitrite (Negative) Urine Bilirubin (Negative) Urine Urobilinogen (<2.0) mg/dL Ur Leukocyte Esterase (Negative) Urine HCG, Qual (Not Detectd) Gastric Occult Blood (Negative) 12/15/18 12/15/18 12/15/18 Range/Units 09:21 11:10 11:10 WBC (3.8-10.6) k/uL RBC (3.80-5.40) m/uL Hgb (11.4-16.0) gm/dL Hct (34.0-46.0) % MCV (80.0-100.0) fL MCH (25.0-35.0) pg MCHC (31.0-37.0) g/dL RDW (11.5-15.5) % Plt Count (150-450) k/uL Neutrophils % % Lymphocytes % % Monocytes % % Eosinophils % % Basophils % % Neutrophils # (1.3-7.7) k/uL Lymphocytes # (1.0-4.8) k/uL Monocytes # (0-1.0) k/uL Eosinophils # (0-0.7) k/uL Basophils # (0-0.2) k/uL Anisocytosis PT (9.0-12.0) sec INR (<1.2) APTT (22.0-30.0) sec Sodium (137-145) mmol/L Potassium (3.5-5.1) mmol/L Chloride (98-107) mmol/L Carbon Dioxide (22-30) mmol/L Anion Gap mmol/L BUN (7-17) mg/dL Creatinine (0.52-1.04) mg/dL Est GFR (CKD-EPI)AfAm (>60 ml/min/1.73 sqM) Est GFR (CKD-EPI)NonAf (>60 ml/min/1.73 sqM) Glucose (74-99) mg/dL Calcium (8.4-10.2) mg/dL Total Bilirubin (0.2-1.3) mg/dL AST (14-36) U/L ALT (9-52) U/L Alkaline Phosphatase (38-126) U/L Troponin I <0.012 (0.000-0.034) ng/mL Total Protein (6.3-8.2) g/dL Albumin (3.5-5.0) g/dL Urine Color Yellow Urine Appearance Clear (Clear) Urine pH 6.5 (5.0-8.0) Ur Specific [place] 1.017 (1.001-1.035) Urine Protein Trace H (Negative) Urine Glucose (UA) Negative (Negative) Urine Ketones Negative (Negative) Urine Blood Negative (Negative) Urine Nitrite Negative (Negative) Urine Bilirubin Negative (Negative) Urine Urobilinogen <2.0 (<2.0) mg/dL Ur Leukocyte Esterase Negative (Negative) Urine HCG, Qual Not Detected (Not Detectd) Gastric Occult Blood (Negative) 12/15/18 Range/Units 11:45 WBC (3.8-10.6) k/uL RBC (3.80-5.40) m/uL Hgb (11.4-16.0) gm/dL Hct (34.0-46.0) % MCV (80.0-100.0) fL MCH (25.0-35.0) pg MCHC (31.0-37.0) g/dL RDW (11.5-15.5) % Plt Count (150-450) k/uL Neutrophils % % Lymphocytes % % Monocytes % % Eosinophils % % Basophils % % Neutrophils # (1.3-7.7) k/uL Lymphocytes # (1.0-4.8) k/uL Monocytes # (0-1.0) k/uL Eosinophils # (0-0.7) k/uL Basophils # (0-0.2) k/uL Anisocytosis PT (9.0-12.0) sec INR (<1.2) APTT (22.0-30.0) sec Sodium (137-145) mmol/L Potassium (3.5-5.1) mmol/L Chloride (98-107) mmol/L Carbon Dioxide (22-30) mmol/L Anion Gap mmol/L BUN (7-17) mg/dL Creatinine (0.52-1.04) mg/dL Est GFR (CKD-EPI)AfAm (>60 ml/min/1.73 sqM) Est GFR (CKD-EPI)NonAf (>60 ml/min/1.73 sqM) Glucose (74-99) mg/dL Calcium (8.4-10.2) mg/dL Total Bilirubin (0.2-1.3) mg/dL AST (14-36) U/L ALT (9-52) U/L Alkaline Phosphatase (38-126) U/L Troponin I (0.000-0.034) ng/mL Total Protein (6.3-8.2) g/dL Albumin (3.5-5.0) g/dL Urine Color Urine Appearance (Clear) Urine pH (5.0-8.0) Ur Specific [place] (1.001-1.035) Urine Protein (Negative) Urine Glucose (UA) (Negative) Urine Ketones (Negative) Urine Blood (Negative) Urine Nitrite (Negative) Urine Bilirubin (Negative) Urine Urobilinogen (<2.0) mg/dL Ur Leukocyte Esterase (Negative) Urine HCG, Qual (Not Detectd) Gastric Occult Blood Positive (Negative) Disposition Clinical Impression: GI bleed, Upper GI bleed, Vomiting, Epigastric discomfort Disposition: ADMITTED IP TO [facility] Condition: Stable Is patient prescribed a controlled substance at d/c from ED?: No Referrals: Joe Morgan DO [Primary Care Provider] - 1-2 days Time of Disposition: 13:20 Decision to Admit Reason: Admit from EC Decision Date: 12/15/18 Decision Time: 13:20
[2018-12-15] MEDS ORDERED: PANTOPRAZOLE 40 MG/10 ML VIAL IVP STA (09:13)
[2018-12-15 09:44] LABS: Anisocytosis Slight; Basophils # (A) 0.1 k/uL (0-0.2); Basophils % (A) 1 %; Eosinophils # (A) 0.3 k/uL (0-0.7); Eosinophils % (A) 3 %; HCT 39.6 % (34.0-46.0); HGB 12.6 gm/dL (11.4-16.0); Lymphocytes # (A) 2.6 k/uL (1.0-4.8); Lymphocytes % (A) 22 %; MCH 25.2 pg (25.0-35.0); MCHC 31.7 g/dL (31.0-37.0); MCV 79.6 fL (80.0-100.0); Monocytes # (A) 0.5 k/uL (0-1.0); Monocytes % (A) 4 %; Neutrophils # (A) 8.2 k/uL (1.3-7.7); Neutrophils % (A) 69 %; Platelet Count 388 k/uL (150-450); RBC 4.98 m/uL (3.80-5.40); RDW 16.1 % (11.5-15.5); WBC 11.8 k/uL (3.8-10.6)
--- NOTE | 2018-12-15 09:47 | XR ---
EXAMINATION TYPE: XR chest 2V DATE OF EXAM: 12/15/2018 COMPARISON: 06/08/2017 HISTORY: Hematemesis and chest pain TECHNIQUE: Frontal and lateral views of the chest are obtained. FINDINGS: There is no focal air space opacity, pleural effusion, or pneumothorax seen. The cardiac silhouette size is within normal limits. The osseous structures are intact. IMPRESSION: No acute cardiopulmonary process.
[2018-12-15 09:48] LABS: ALT 17 U/L (9-52); AST 14 U/L (14-36); African American GFR (CKD) >90 (>60 ml/min/1.73 sqM); Albumin 4.2 g/dL (3.5-5.0); Alkaline Phosphatase 58 U/L (38-126); Anion Gap 13 mmol/L; Blood Urea Nitrogen 7 mg/dL (7-17); Calcium 9.4 mg/dL (8.4-10.2); Carbon Dioxide 21 mmol/L (22-30); Chloride 108 mmol/L (98-107); Glucose 107 mg/dL (74-99); Non-African American GFR(CKD) >90 (>60 ml/min/1.73 sqM); Potassium 4.2 mmol/L (3.5-5.1); Sodium 142 mmol/L (137-145); Total Bilirubin 0.3 mg/dL (0.2-1.3); Total Protein 7.5 g/dL (6.3-8.2)
[2018-12-15 09:50] LABS: Partial Thromboplastin Time 23.2 sec (22.0-30.0)
[2018-12-15] MEDS ORDERED: ONDANSETRON 4 MG/2 ML VIAL IVP STA ×2 (09:50→13:31)
[2018-12-15] MEDS ORDERED: NALOXONE 0.4 MG/ML 1 ML VIAL IV PRN (10:35)
[2018-12-15 10:37] LABS: Prothrombin Time 10.7 sec (9.0-12.0)
[2018-12-15] MEDS ORDERED: MORPHINE SULFATE 2 MG/ML SYRINGE IVP STA (10:59)
[2018-12-15] MEDS: SODIUM CHLORIDE 0.9% 1,000 ML IV SCH (11:05)
[2018-12-15 11:44] LABS: Appearance,Urine Clear (Clear); Bilirubin,Urine Negative (Negative); Blood,Urine Negative (Negative); Color,Urine Yellow; Glucose,Urine (UA) Negative (Negative); Ketones,Urine Negative (Negative); Leukocyte Esterase,Urine Negative (Negative); Nitrite,Urine Negative (Negative); PH, Urine 6.5 (5.0-8.0); Protein,Urine Trace (Negative); Specific Gravity,Urine 1.017 (1.001-1.035); Urobilinogen,Urine <2.0 mg/dL (<2.0)
--- NOTE | 2018-12-15 12:59 | CT ---
EXAMINATION TYPE: CT abdomen pelvis w con DATE OF EXAM: 12/15/2018 HISTORY: back pain, hematemesis CT DLP: 1909.4mGycm Automated Exposure Control for Dose Reduction was Utilized. CONTRAST: CT scan of the abdomen and pelvis is performed with IV Contrast, patient injected with 100 mL of Isov ue 300. COMPARISON: CT renal stone November 06, 2018 FINDINGS: LUNG BASES: No significant abnormality is appreciated. LIVER/GB: No significant abnormality is appreciated. PANCREAS: No significant abnormality is seen. SPLEEN: No significant abnormality is seen. ADRENALS: No significant abnormality is seen. KIDNEYS: Left kidney redemonstrates 2 2 mm calculi mid to lower pole of the left kidney coronal image s 70 and 71. No right-sided nephrolithiasis. No hydronephrosis or obstructing ureteral calculi are pr esent bilaterally. No intraluminal calculi in bladder seen. Calcified left pelvic phlebolith redemons trated. Interval clearance of distal right ureter calculus. BOWEL: Occasional diverticula mid to distal colon. No acute diverticulitis. No suspicious bowel dilat ation. UTERUS/ADNEXA: Anteverted uterus. Normal-sized ovaries axial image 75. LYMPH NODES: No greater than 1cm abdominal or pelvic lymph nodes are appreciated. OSSEOUS STRUCTURES: No significant abnormality is seen. OTHER: No significant additional abnormality is seen. IMPRESSION: Interval clearance of obstructing tiny distal right ureter calculus. Stable tiny nonobstr ucting left renal calculi. No new or acute findings seen to account for patient's symptoms. No bowel obstruction is present.
[2018-12-15] MEDS ORDERED: MORPHINE SULFATE 2 MG/ML SYRINGE IVP PRN (13:31)
--- NOTE | 2018-12-15 15:13 | P.CONS ---
History of Present Illness - Reason for Consult Consult date: 12/15/18 coffee ground emesis Requesting physician: Jake Goodson - Chief Complaint GI bleed - History of Present Illness 23-year-old female with a past medical history depression, morbid obesity BMI 52.7, ureteral calculi nephrolithiasis, anxiety admitted with intractable nausea multiple episodes of vomiting epigastric abdominal pain with coffee-ground emesis x 24 hours. Patient has been dealing with "kidney stones" over the last month. She was placed on [place] for 2 weeks in early November. She was having a few episodes of nausea vomiting at home last month that was coffee-ground in color but did not understand it could be old blood. No history of EGD. No history of known peptic ulcer disease. No alcohol or NSAIDs. No history of gastric or bowel surgeries. Hemoglobin 12.6. One month ago hemoglobin was 12.9. Platelets 388. INR 1.0. Gastric occult positive. HCG no t detected. BUN 7. Creatinine 0.8. Troponin less than 0.012. LFTs within normal limits. Denies fever chills gross hematochezia or melena. CT abdomen occasional diverticula mid to distal colon. No bowel dilation. Interval clearance of obstructing tiny distal right ureteral calculus. Nonob structing left renal calculi. Review of Systems Constitutional: Denies fever, chills, sweats, weight gain, or loss. HEENT: Negative for migraines, blurred vision or loss, earaches, drainage, tinnitus, oral mucosal lesions, dysphagia, or odynophagia. CARDIAC: Negative for chest pain, arrhythmias, or palpitation. RESPIRATORY: Negative for shortness of breath, hemoptysis, cough, or sputum production. GI: See HPI for pertinent findings. : Negative for hematuria, urgency, frequency, polyuria, or dysuria. GYNc: Denies possibility of . Negative vaginal discharge. MUSCULOSKELETAL: Negative for muscle aches, swelling, arthritis, and arthralgias. NEUROLOGIC: Negative for stroke or TIA. ENDOCRINE: Negative for thyroid problems. SKIN: Negative for rash or itching. PSYCHIATRIC: Negative history for depression and anxietyle Past Medical History Past Medical History: Thyroid Disorder Additional Past Medical History / Comment(s): kidney stones History of Any Multi-Drug Resistant Organisms: None Reported Past Surgical History: Tonsillectomy Smoking Status: Current some day smoker Medications and Allergies Home Medications Medication Instructions Recorded Confirmed Type Levothyroxine Sodium [Synthroid] 50 mcg PO DAILY 02/28/18 11/06/18 History Venlafaxine HCl ER [Effexor XR] 150 mg PO DAILY 02/28/18 11/06/18 History HYDROcodone/APAP 5-325MG [[place] 1 tab PO Q6HR PRN 3 Days #12 tab 11/06/18 Rx 5-325] Ibuprofen [Motrin] 800 mg PO TID #20 tab 11/06/18 Rx [place] 1 tab PO DAILY 11/06/18 11/06/18 History Ondansetron Odt [Zofran Odt] 4 mg PO Q8HR PRN #12 tab 11/06/18 Rx QUEtiapine [SEROquel] 25 mg PO HS 11/06/18 11/06/18 History lamoTRIgine [LaMICtal] 150 mg PO BID 11/06/18 11/06/18 History Allergies Allergy/AdvReac Type Severity Reaction Status Date / Time Milk Containing Products Allergy Nausea & Verified 12/15/18 09:00 [Dairy] Vomiting & Diarrhea Physical Exam Vitals: Vital Signs Temp Pulse Pulse Resp BP BP Pulse Ox 12/15/18 14:57 97.8 F 69 17 126/74 100 12/15/18 13:47 97.6 F 74 18 125/64 99 12/15/18 11:08 97.7 F 67 16 154/95 98 12/15/18 08:57 97.9 F 71 20 148/100 97 Intake and Output 12/15/18 12/15/18 12/15/18 06:59 14:59 22:59 Other: Weight 122.47 kg General appearance: The patient is alert, oriented, in no acute distress. HET: Head is normocephalic and atraumatic. Pupils are equal and reactive. Or opharynx is clear without lesions. Neck: Supple without lymphadenopathy. Trachea midline. Heart: S1 S2. Regular rate and rhythm. Lungs: No crackles or wheezes are heard. Abdomen: Soft, midepigastric tenderness, nondistended with bowel sounds. No peritoneal signs. No palpable organomegaly or masses. Extremities: Normal skin color and turgor. No cyanosis, rash, ulceration, clubbing, or edema. Radial and pedal pulses are 2/4 bilaterally. Neurological: No focal deficits. Strength and sensation are grossly intact. Results CBC & Chem 7: 12/15/18 09:21 12/15/18 09:21 Labs: Abnormal Lab Results - Last 24 Hours (Table) 12/15/18 12/15/18 12/15/18 Range/Units 09:21 09:21 11:10 WBC 11.8 H (3.8-10.6) k/uL MCV 79.6 L (80.0-100.0) fL RDW 16.1 H (11.5-15.5) % Neutrophils # 8.2 H (1.3-7.7) k/uL Chloride 108 H (98-107) mmol/L Carbon Dioxide 21 L (22-30) mmol/L Glucose 107 H (74-99) mg/dL Urine Protein Trace H (Negative) CT scan - abdomen: report reviewed (Dr. Glasgow) Assessment and Plan (1) Epigastric abdominal pain Narrative/Plan: 23-year-old female admitted with intractable nausea vomiting coffee-ground emesis epigastric abdominal pain with previous episodes of coffee-ground emesis or last month possible Teodora-Stanton tear possible esophagitis gastritis duo denitis underlying peptic ulcer disease cannot be excluded. Current Visit: Yes Status: Acute Code(s): R10.13 - EPIGASTRIC PAIN SNOMED Code(s): 50267085 (2) Coffee ground emesis Current Visit: Yes Status: Acute Code(s): K92.0 - HEMATEMESIS SNOMED Code(s): 34721672 (3) Morbid obesity with BMI of 50.0-59.9, adult Current Visit: Yes Status: Acute Code(s): E66.01 - MORBID (SEVERE) OBESITY DUE TO EXCESS CALORIES; Z68.43 - BODY MASS INDEX (BMI) 50-59.9, ADULT SNOMED Code(s): 433429034 Plan: 1. EGD. Protonix 40 mg distress daily. CBC monitoring. No aspirin or NSAIDs. 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 The patient has indicated understanding and acceptance of the risks and procedures discussed. Thank you for this kind referral and the opportunity to participate in the care of your patient. This consultation was discussed with Dr. Glasgow. The impression and plan of care have been directed as dictated.
[2018-12-15] MEDS ORDERED: PROPOFOL 10 MG/ML 20 ML VIAL IV ONE (15:20)
[2018-12-15] MEDS ORDERED: IV FLUID CONTINUATION 900 ML IV ONE ×2 (15:29)
--- NOTE | 2018-12-15 15:33 | P.PCN ---
Date of Procedure: 12/15/18 Procedure(s) Performed: BRIEF HISTORY: Patient is a 23-year-old, pleasant, female, scheduled for an upper endoscopy as a part of evaluation of the chronic intermittent nausea vomiting for the last 6 months duration. She also completed severe cramping lower abdominal pain on and off for the same duration of time the patient diarrhea. In view of this and she is scheduled for an upper endoscopy to evaluate further. PROCEDURE PERFORMED: Esophagogastroduodenoscopy with biopsy. PREOPERATIVE DIAGNOSIS: Abdominal pain and chronic intermittent nausea vomiting and diarrhea. IV sedation per anesthesia. PROCEDURE: After informed consent was obtained, the patient was brought into the endoscopy unit. IV sedation was administered by Anesthesia under continuous monitoring. Initially the Olympus GIF-140 video endoscope was inserted into the mouth. Esophagus intubated without any difficulty. It was gradually advanced into the stomach and duodenum and carefully examined. The bulb and the second part of the duodenum appeared normal. Biopsies were done from the duodenum to rule out celiac disease. The scope at this time was withdrawn to the stomach, adequately insufflated with air, and upon careful examination, mucosa of the antrum had mild gastritis and biopsies were done from this area. The body, cardia and the fundus appeared normal. There was a patch of gastritis noted in the cardia of the stomach but no active bleeding. The scope was then withdrawn into the esophagus. The GE junction was located at 39 cm from the incisors. The esophagus appeared normal. There were no erosions or ulcerations seen, biopsies were done from the distal esophagus and the patient tolerated the procedure well. IMPRESSION: 1. Mild antral gastritis. 2. No evidence of esophagitis or peptic ulcer disease. 3. Small sliding Hiatal hernia. RECOMMENDATIONS: The findings of this examination were discussed with the patient as well as a family. She was advised to follow with the biopsy results. In the meantime she will be treated with Protonix 40 mg daily and was educated about antireflux measures.. Diet will be advanced as tolerated.
[2018-12-15 16:11] LABS: HCT 20.9 % (34.0-46.0); MCH 26.8 pg (25.0-35.0); MCHC 34.1 g/dL (31.0-37.0); MCV 78.6 fL (80.0-100.0); Mean Platelet Volume 6.7; RBC 2.66 m/uL (3.80-5.40); RDW 15.8 % (11.5-15.5); WBC 10.8 k/uL (3.8-10.6)
[2018-12-15 16:12] LABS: HGB 7.1 gm/dL (11.4-16.0); Platelet Count 174 k/uL (150-450)
[2018-12-15] MEDS ORDERED: ONDANSETRON 4 MG/2 ML VIAL IVP PRN (16:51)
[2018-12-15] MEDS ORDERED: ALPRAZolam 0.25 MG TAB PO PRN (17:09)
[2018-12-15] MEDS ORDERED: TEMAZEPAM 15 MG CAP PO PRN (17:09)
[2018-12-15] MEDS ORDERED: ACETAMINOPHEN TAB 500 MG TAB PO PRN (17:09)
[2018-12-15] MEDS ORDERED: HYDROcodone/APAP 5-325MG 1 EACH TAB PO PRN (17:11)
[2018-12-15] MEDS ORDERED: FUROSEMIDE 10 MG/ML 2 ML VIAL IV ONE (17:19)
[2018-12-15] MEDS: SUCRALFATE 1 GM TAB PO SCH ×2 (17:50→21:29)
[2018-12-15 18:07] LABS: HCT 36.1 % (34.0-46.0); MCH 26.1 pg (25.0-35.0); MCHC 33.3 g/dL (31.0-37.0); MCV 78.3 fL (80.0-100.0); Platelet Count 309 k/uL (150-450); RBC 4.61 m/uL (3.80-5.40); RDW 15.6 % (11.5-15.5); WBC 13.1 k/uL (3.8-10.6)
[2018-12-15] MEDS: HYDROmorphone 0.5 MG/0.5 ML SYRINGE IVP PRN (19:01)
[2018-12-15] MEDS: PANTOPRAZOLE 40 MG/10 ML VIAL IVP SCH (20:05)
[2018-12-15] MEDS: METOCLOPRAMIDE 5 MG/ML 2 ML VIAL IVP PRN (20:05)
--- NOTE | 2018-12-15 20:25 | HP ---
HISTORY AND PHYSICAL DATE OF SERVICE: 12/15/2018. I am covering for Dr. Morgan. CHIEF COMPLAINT: Incessant vomiting and hematemesis. HISTORY OF PRESENT ILLNESS: This 23-year-old gentleman with a past medical history of hypothyroidism, history of kidney stones, history of GI bleed, anxiety, depression, being followed by Dr. Morgan in the outpatient setting was complaining of apparent cyclical vomiting. Currently the patient vomited for the last several days and the patient has some sensitivity to food. After stopping diarrhea, patient is feeling better and the patient initially had coffee-ground vomitus and subsequently today the patient had maroon-colored blood and the patient came to [facility] and was admitted for further evaluation and treatment. The hemoglobin is found to be 12.6 and subsequently it was 7.1. The patient also underwent an EGD by Dr. Glasgow, which showed mild antral gastritis. No evidence of esophagitis and peptic ulcer disease and small sliding hiatal hernia. The patient is being closely monitored. There is no history of fever, rigors or chills. No history of headache, loss of consciousness or seizures. PAST MEDICAL HISTORY: History of hypothyroidism, history of kidney stones, GI bleed, history of anxiety, depression. MEDICATIONS: Prior to admission include: 1. Synthroid 50 mcg p.o. daily. 2. Kurvelo 1 tablet p.o. daily. 3. Motrin 800 mg p.o. t.i.d. 4. Hydrocodone q.6h p.r.n. 5. Lamictal 150 mg p.o. b.i.d. 6. Effexor XR 150 mg p.o. daily. 7. Seroquel 25 mg q.h.s. 8. Zofran 4 mg q.8 p.r.n. ALLERGIES: MILK CONTAINING PRODUCTS. FAMILY HISTORY: History of diabetes, GERD, hypertension, hypothyroidism. SOCIAL HISTORY: History of smoking. No history of alcohol intake. REVIEW OF SYSTEMS: ENT: No diminished vision. No diminished hearing. CARDIOVASCULAR system: No angina or palpitations. RESPIRATORY: As mentioned earlier. GASTROINTESTINAL: As mentioned earlier. no dysuria. NERVOUS SYSTEM: No numbness or weakness. ALLERGIES/IMMUNOLOGY: No asthma or hayfever. MUSCULOSKELETAL as mentioned earlier. HEMATOLOGY/ONCOLOGY: No history of anemia. ENDOCRINE: As mentioned earlier. CONSTITUTIONAL: As mentioned earlier. DERMATOLOGY: Negative. RHEUMATOLOGY: Negative. PSYCHIATRIC: As mentioned earlier. PHYSICAL EXAMINATION: GENERAL: The patient is alert and oriented times three. Pulse 84. Blood pressure 109/56, respirations 17. Temperature 97.7, pulse ox 98% on room air. HEENT is conjunctivae normal. Oral mucosa moist. NECK is no jugular venous distention. No carotid bruit. No lymph node enlargement. Cardiovascular: S1, S2 muffled. RESPIRATORY: Breath sounds diminished in the bases. No rhonchi. No crackles. ABDOMEN: Soft, obese, nontender. No mass palpable. LEGS: No edema. No swelling. NERVOUS SYSTEM: Higher functions as mentioned. Moves all 4 limbs. No focal motor or sensory deficits. LYMPHATICS: No lymph nodes palpable in the neck, axillae or groin. SKIN no ulcer, no rashes, no bleeding. JOINTS: No active deforming arthropathy. LABS: WBC 16.2, hemoglobin 7.1. ASSESSMENT: 1. Incessant vomiting possible acute gastritis with acute blood loss anemia. 2. Possible cyclical vomiting. 3. Increased WBC, possibly reactive. 4. Hypothyroidism. 5. History of nephrolithiasis. 6. History of gastrointestinal bleed. 7. History of anxiety, depression. 8. History of nicotine dependence. 9. Obesity with body mass index 52.7. RECOMMENDATIONS AND DISCUSSION: This 23-year-old woman who presented with multiple medical issues, we will monitor the patient closely. Continue the current medications, management and symptomatic treatment. I would recommend a unit of blood transfusion. Monitor closely. Hemoglobin and hematocrit every 6 hours. Gastroenterology evaluation. Proton pump inhibitors. Carafate. Guarded prognosis because of multiple complex medical issues. Further recommendations to follow. A copy of this dictation being forwarded to Dr. Morgan who is the primary physician. MMODL / IJN: [id number] / MTDD
[2018-12-15] MEDS ORDERED: QUEtiapine 25 MG TAB PO SCH (21:00)
[2018-12-15] MEDS: lamoTRIgine 100 MG TAB PO SCH (21:29)
[2018-12-15 22:00] VITALS: RESP 18
[2018-12-15 22:22] LABS: Amphetamine Screen,Urine Not Detected (NotDetected); Barbiturate Screen,Urine Not Detected (NotDetected); Benzodiazepines Screen,Urine Not Detected (NotDetected); Cocaine Screen,Urine Not Detected (NotDetected); Methadone Screen, Urine Not Detected (NotDetected); Opiate Screen,Urine Detected (NotDetected); Oxycodone Screen, Urine Not Detected (NotDetected); Phencyclidine Screen,Urine Not Detected (NotDetected); Tricyclic Antidepressant,Urine Not Detected (NotDetected); Urn Cannabinoid Scrn Detected (NotDetected)
[2018-12-16] MEDS: SODIUM CHLORIDE 0.9% 1,000 ML IV SCH ×2 (00:06→13:22)
[2018-12-16] MEDS: HYDROmorphone 0.5 MG/0.5 ML SYRINGE IVP PRN ×2 (02:02→07:55)
[2018-12-16] MEDS: METOCLOPRAMIDE 5 MG/ML 2 ML VIAL IVP PRN ×3 (02:02→14:57)
[2018-12-16 04:55] VITALS: PULSE 80
[2018-12-16 07:00] LABS: Basophils % (A) 0 %; Eosinophils # (A) 0.3 k/uL (0-0.7); Eosinophils % (A) 3 %; HCT 36.4 % (34.0-46.0); HGB 11.4 gm/dL (11.4-16.0); Lymphocytes # (A) 2.7 k/uL (1.0-4.8); Lymphocytes % (A) 22 %; MCH 25.3 pg (25.0-35.0); MCHC 31.4 g/dL (31.0-37.0); MCV 80.5 fL (80.0-100.0); Mean Platelet Volume 6.5; Monocytes # (A) 0.5 k/uL (0-1.0); Monocytes % (A) 4 %; Neutrophils # (A) 8.6 k/uL (1.3-7.7); Neutrophils % (A) 70 %; Platelet Count 305 k/uL (150-450); RBC 4.53 m/uL (3.80-5.40); RDW 15.9 % (11.5-15.5); WBC 12.3 k/uL (3.8-10.6)
[2018-12-16 07:12] LABS: African American GFR (CKD) >90 (>60 ml/min/1.73 sqM); Anion Gap 7 mmol/L; Blood Urea Nitrogen 5 mg/dL (7-17); Calcium 8.9 mg/dL (8.4-10.2); Carbon Dioxide 26 mmol/L (22-30); Chloride 108 mmol/L (98-107); Glucose 93 mg/dL (74-99); Non-African American GFR(CKD) >90 (>60 ml/min/1.73 sqM); Sodium 141 mmol/L (137-145)
[2018-12-16] MEDS: SUCRALFATE 1 GM TAB PO SCH ×2 (07:39→13:22)
[2018-12-16] MEDS: PANTOPRAZOLE 40 MG/10 ML VIAL IVP SCH (07:40)
[2018-12-16] MEDS ORDERED: VENLAFAXINE HCL ER 150 MG CAP PO SCH (09:00)
[2018-12-16] MEDS ORDERED: KURVELO PO SCH (09:00)
[2018-12-16] MEDS: lamoTRIgine 100 MG TAB PO SCH (10:05)
[2018-12-16] MEDS: LEVOTHYROXINE 50 MCG TAB PO SCH (10:05)
--- NOTE | 2018-12-16 10:29 | PN ---
PROGRESS NOTE The patient is a 23-year-old pleasant white female came to the emergency room with intermittent episodes of abdominal pain associated with nausea, vomiting for the last 6 months duration. However, for the last few days she has been having worsening symptoms associated with lower abdominal cramping pain and also back pain. She had a few episodes of coffee-grounds emesis and hence she underwent an upper endoscopy yesterday that showed evidence of gastritis but no evidence of peptic ulcer disease. The patient presently on Protonix 40 mg daily as well as Reglan and Zofran for the nausea, vomiting. She is feeling much better this morning. Now she starts complaining of right-sided flank pain. She was recently diagnosed with kidney stones, was seen by Dr. Durán on an outpatient basis and as the stones were 2 mm in size, she was being managed conservatively hoping for the stone to pass spontaneously. She denies any fever, chills, night sweats. PHYSICAL EXAMINATION: She appears comfortable in no apparent distress. VITAL SIGNS: Stable. Blood pressure is 109/56, pulse rate 84, temperature 97.7. HEENT examination: Unremarkable. Conjunctivae pink. Sclerae anicteric. Oral cavity no lesions. Neck: No JVD or lymph node enlargement. CHEST: Clear to auscultation. HEART: Regular rate and rhythm. ABDOMEN was soft. There was very minimal tenderness in the epigastric area. Bowel sounds are positive. No organomegaly. EXTREMITIES: No pedal edema. Skin no rashes. NEUROLOGIC: Alert and oriented x3. No focal deficits. LABS: From this morning, WBC 12.3, hemoglobin 11.4, platelets are normal. Basic metabolic panel is within normal limits. IMPRESSION: 1. Nausea, vomiting, coffee-grounds emesis, status post EGD yesterday that showed gastritis. No evidence of peptic ulcer disease. 2. Right-sided flank pain, probably related to nephrolithiasis. Patient following with Dr. Durán on an outpatient basis. RECOMMENDATIONS: 1. Advance to regular diet. 2. Continue Protonix 40 mg daily. 3. Continue antiemetics with Zofran and Reglan as needed. 4. If she is able to tolerate a diet, she can be discharged home with outpatient followup in 1-2 weeks. Thank you for this consultation. MMODL / IJN: [id number] /
[2018-12-16 15:09] VITALS: BP 140/90; TEMP 98.2
[2018-12-16] MEDS ORDERED: PANTOPRAZOLE 40 MG TABLET PO SCH (17:30)
--- NOTE | 2018-12-17 01:19 | DS ---
DISCHARGE SUMMARY DATE OF SERVICE: 12/16/2018. FINAL DIAGNOSES: 1. Increased incessant vomiting, possible acute gastritis with acute blood loss anemia. 2. Possible cyclical vomiting. 3. Increased WBC possibly reactive, improved. 4. Hypothyroidism. 5. History of nephrolithiasis. 6. History of gastrointestinal bleed. 7. History of anxiety/depression. 8. History of nicotine dependence. 9. Obesity with body mass index of 52.7. 10.History of THC. DISCHARGE DISPOSITION: Patient will be discharged in stable condition with guarded prognosis. HISTORY OF PRESENT ILLNESS: This 23-year-old woman with a past medical history of multiple medical problems admitted with incessant vomiting. Dr. Glasgow performed EGD which showed possible gastritis. The biopsies were taken and the patient improved significantly. The patient would like to go home. On exam, vitals are stable. Cardiovascular: S1, S2. Abdomen soft. Nervous system: No focal deficits. DISCHARGE ADVICE AND MEDICATIONS: 1. Discharge diet is soft bland. 2. Activity limited until followup. 3. Follow up with Dr. Joe Morgan in 2-3 days. 4. Follow up with Dr. Glasgow as advised. DISCHARGE MEDICATIONS: 1. Effexor XR 150 mg p.o. daily. 2. [place]velo 1 tablet p.o. daily. 3. Lamictal 150 mg p.o. b.i.d. 4. Seroquel 25 mg q.h.s. 5. Synthroid 50 mcg p.o. 6. Carafate 1 g p.o. a.c. q.h.s. 7. Protonix 40 mg daily. 8. Tylenol p.r.n. 9. Zofran 4 mg q.8 p.r.n. Once again, the patient is being discharged in stable condition with guarded prognosis. MMODL / IJN: [id number] /
== END 2018-12-16 15:20 | disposition home or self-care (01) ==
LOC: EC 08:56 → 3NMEDONC 13:42
PROVIDERS: ADMIT Hospitalist; ATTEND Hospitalist
DX: K92.0 Hematemesis (principal); R19.7 Diarrhea, unspecified; R10.30 Lower abdominal pain, unspecified; R10.13 Epigastric pain; M54.9 Dorsalgia, unspecified; R10.9 Unspecified abdominal pain; D72.829 Elevated white blood cell count, unspecified; E03.9 Hypothyroidism, unspecified; K44.9 Diaphragmatic hernia without obstruction or gangrene; F41.9 Anxiety disorder, unspecified; F32.9 Major depressive disorder, single episode, unspecified; Z87.19 Personal history of other diseases of the digestive system; Z87.442 Personal history of urinary calculi; E66.01 Morbid (severe) obesity due to excess calories; Z68.43 Body mass index [BMI] 50.0-59.9, adult; Z87.891 Personal history of nicotine dependence; Z79.890 Hormone replacement therapy; Z79.899 Other long term (current) drug therapy; Z79.1 Long term (current) use of non-steroidal anti-inflammatories (NSAID); Z79.891 Long term (current) use of opiate analgesic; Z91.011 Allergy to milk products; Z83.3 Family history of diabetes mellitus; Z82.49 Family history of ischemic heart disease and other diseases of the circulatory system; Z83.49 Family history of other endocrine, nutritional and metabolic diseases; Z83.79 Family history of other diseases of the digestive system
CPT/HCPCS: 96376; 96361; 96374; 96375; 99285; 36415; 93005; 86900; 86901; 88305; 80053; 80048; 84484; 85025 ×2; 85027; 85610; 85730; 86850; 82271; 81003; 81025; 80306; 71046; 74177; 43239; G0378 ×2; J2765 ×2; J2405; J2270; J2704; C9113 ×2; J1170 ×2; Q9967; 86920

== ENCOUNTER → 2019-09-13 | Outpatient (CLI) | payer MEDICAID ==
--- NOTE | 2019-09-13 11:49 | CT ---
EXAMINATION TYPE: CT abdomen pelvis w con DATE OF EXAM: 09/13/2019 COMPARISON: December 15, 2018 HISTORY: Abdominal pain CONTRAST: CT scan of the abdomen and pelvis is performed with Oral Contrast and with IV Contrast, patient injec gema with 100 mL of Isovue 300. FINDINGS: LUNG BASES-: No visible nodule. No infiltrate. LIVER/GB: No calcified gallstones. No space occupying hepatic lesion. Biliary tree is of normal ca liber. PANCREAS: No inflammation. No distinct mass. SPLEEN: No splenic enlargement. No lesion seen. ADRENALS: No nodule. No thickening. KIDNEYS/BLADDER: No hydronephrosis. Small nonobstructing calculi midpole left kidney measuring 2 and 3 mm respectively. No distinct renal mass. Urinary bladder grossly unremarkable. BOWEL: Normal appendix. Normal bowel caliber. No inflammation. GENITAL ORGANS: No gross abnormality. LYMPH NODES: No greater than 1cm abdominal or pelvic lymph nodes are appreciated. AORTA: No significant abnormality. OSSEOUS STRUCTURES: No significant abnormality is seen. OTHER: No significant additional abnormality is seen. IMPRESSION: 1. Small nonobstructing calculi midpole left kidney measuring 2 and 3 mm respectively.
== END | disposition home or self-care (01) ==
LOC: RADCTMAIN 09:34
PROVIDERS: ATTEND Family Medicine
DX: N20.0 Calculus of kidney (principal)
CPT/HCPCS: 74177; Q9967

== ENCOUNTER 2019-09-17 08:47 | Observation (INO) | payer MEDICAID ==
[2019-09-17] MEDS ORDERED: ONDANSETRON 4 MG/2 ML VIAL IVP STA (09:10)
[2019-09-17] MEDS ORDERED: SODIUM CHLORIDE 0.9% 1,000 ML IV STA (09:10)
[2019-09-17] MEDS ORDERED: HYDROmorphone 1 MG/ML 1 ML SYRINGE IVP STA ×2 (09:10→11:09)
[2019-09-17] MEDS ORDERED: KETOROLAC 30 MG/ML 1 ML VIAL IVP STA (09:10)
[2019-09-17 09:33] LABS: Basophils # (A) 0.1 k/uL (0-0.2); Basophils % (A) 1 %; Eosinophils # (A) 0.3 k/uL (0-0.7); Eosinophils % (A) 2 %; HCT 40.1 % (34.0-46.0); HGB 12.5 gm/dL (11.4-16.0); Lymphocytes % (A) 21 %; MCH 24.8 pg (25.0-35.0); MCHC 31.3 g/dL (31.0-37.0); MCV 79.2 fL (80.0-100.0); Mean Platelet Volume 7.1; Monocytes # (A) 0.6 k/uL (0-1.0); Monocytes % (A) 4 %; Neutrophils # (A) 9.9 k/uL (1.3-7.7); Neutrophils % (A) 70 %; Platelet Count 403 k/uL (150-450); RBC 5.06 m/uL (3.80-5.40); RDW 15.5 % (11.5-15.5); WBC 14.2 k/uL (3.8-10.6)
[2019-09-17 09:43] LABS: ALT 12 U/L (4-34); AST 17 U/L (14-36); African American GFR (CKD) >90 (>60 ml/min/1.73 sqM); Albumin 4.2 g/dL (3.5-5.0); Alkaline Phosphatase 69 U/L (38-126); Amylase 156 U/L (30-110); Anion Gap 12 mmol/L; Blood Urea Nitrogen 8 mg/dL (7-17); Calcium 9.3 mg/dL (8.4-10.2); Carbon Dioxide 19 mmol/L (22-30); Chloride 107 mmol/L (98-107); Glucose 132 mg/dL (74-99); Non-African American GFR(CKD) >90 (>60 ml/min/1.73 sqM); Potassium 4.2 mmol/L (3.5-5.1); Sodium 138 mmol/L (137-145); Total Bilirubin 0.3 mg/dL (0.2-1.3); Total Protein 7.7 g/dL (6.3-8.2)
--- NOTE | 2019-09-17 10:00 | ED ---
General Adult HPI - General Chief complaint: Nausea/Vomiting/Diarrhea Stated complaint: Kidney Stones Time Seen by Provider: 09/17/19 08:50 Source: patient, RN notes reviewed, old records reviewed Mode of arrival: ambulatory Limitations: no limitations - History of Present Illness Initial comments: This is a 24-year-old female presents emergency department with past medical history significant for kidney stones. Patient states she was received told she had a kidney stone in the left kidney. Patient states the pain is been ongoing for a month intermittently makes her very nauseated and then she begins to vomit. Patient states she started having blood in the vomit this morning so she decided to come in. Patient was also diaphoretic. Patient denies any fever or chills. Patient denies dysuria hematuria urinary frequency - Related Data Home Medications Medication Instructions Recorded Confirmed Levothyroxine Sodium [Synthroid] 50 mcg PO DAILY 02/28/18 12/15/18 Venlafaxine HCl ER [Effexor XR] 150 mg PO DAILY 02/28/18 12/15/18 [place] 1 tab PO DAILY 11/06/18 12/15/18 QUEtiapine [SEROquel] 25 mg PO HS 11/06/18 12/15/18 lamoTRIgine [LaMICtal] 150 mg PO BID 11/06/18 12/15/18 Previous Rx's Medication Instructions Recorded Ondansetron Odt [Zofran ODT] 4 mg PO Q8HR PRN #12 tab 11/06/18 Acetaminophen Tab [Tylenol] 500 mg PO Q6HR PRN tab 12/16/18 Pantoprazole Sodium [Protonix] 40 mg PO DAILY #30 tablet. 12/16/18 Sucralfate [Carafate] 1 gm PO ACHS #120 tab 12/16/18 Allergies Allergy/AdvReac Type Severity Reaction Status Date / Time Milk Containing Products AdvReac Nausea & Verified 09/17/19 08:52 [Dairy] Vomiting & Diarrhea Review of Systems ROS Statement: Those systems with pertinent positive or pertinent negative responses have been documented in the HPI. ROS Other: All systems not noted in ROS Statement are negative. Past Medical History Past Medical History: Thyroid Disorder Additional Past Medical History / Comment(s): kidney stones, gi bleed History of Any Multi-Drug Resistant Organisms: None Reported Past Surgical History: Tonsillectomy Past Psychological History: Anxiety, Depression Smoking Status: Current some day smoker Past Alcohol Use History: Occasional Past Drug Use History: None Reported - Past Family History Mother Family Medical History: Diabetes Mellitus, GERD/Reflux, Hypertension, Thyroid Disorder General Exam - General Exam Comments Initial Comments: GENERAL: Patient is well-developed and well-nourished. Patient is nontoxic and well- hydrated and is in moderate distress. Patient is diaphoretic ENT: Neck is soft and supple. No significant lymphadenopathy is noted. Oropharynx is clear. Moist mucous membranes. Neck has full range of motion without e liciting any pain. EYES: The sclera were anicteric and conjunctiva were pink and moist. Extraocular movements were intact and pupils were equal round and reactive to light. Eyelids were unremarkable. PULMONARY: Unlabored respirations. Good breath sounds bilaterally. No audible rales rhonchi or wheezing was noted. CARDIOVASCULAR: There is a regular rate and rhythm without any murmurs gallops or rubs. ABDOMEN: Soft and nontender with normal bowel sounds. SKIN: Skin is clear with no lesions or rashes and otherwise unremarkable. NEUROLOGIC: Patient is alert and oriented x3. Cranial nerves II through XII are grossly intact. Motor and sensory are also intact. Normal speech, volume and content. Symmetrical smile. MUSCULOSKELETAL: Normal extremities with adequate strength and full range of motion. LYMPHATICS: No significant lymphadenopathy is noted PSYCHIATRIC: Normal psychiatric evaluation. Limitations: no limitations Course Vital Signs 09/17/19 09/17/19 09/17/19 08:49 10:27 12:05 Temperature 98.5 F Pulse Rate 92 76 63 Respiratory 18 16 16 Rate Blood Pressure 147/93 132/74 144/92 O2 Sat by Pulse 100 99 99 Oximetry Medical Decision Making - Medical Decision Making CT of the abdomen and pelvis from a few days ago showed a small stone in the left kidney that was nonobstructing. Patient continued to have bouts of severe left sided pain in the CVA area. I spoke with Dr. Morgan he wanted to admit the patient admitted the patient. I spoke with Dr. Bharti Durán will be on consult the patient. Her wrote admitting orders I consult the Luis Armando and Dr. Dominguez - Lab Data Result diagrams: 09/17/19 09:18 09/17/19 09:18 Lab Results 09/17/19 09/17/19 09/17/19 Range/Units 09:18 09:18 10:20 WBC 14.2 H (3.8-10.6) k/uL RBC 5.06 (3.80-5.40) m/uL Hgb 12.5 (11.4-16.0) gm/dL Hct 40.1 (34.0-46.0) % MCV 79.2 L (80.0-100.0) fL MCH 24.8 L (25.0-35.0) pg MCHC 31.3 (31.0-37.0) g/dL RDW 15.5 (11.5-15.5) % Plt Count 403 (150-450) k/uL Neutrophils % 70 % Lymphocytes % 21 % Monocytes % 4 % Eosinophils % 2 % Basophils % 1 % Neutrophils # 9.9 H (1.3-7.7) k/uL Lymphocytes # 3.0 (1.0-4.8) k/uL Monocytes # 0.6 (0-1.0) k/uL Eosinophils # 0.3 (0-0.7) k/uL Basophils # 0.1 (0-0.2) k/uL Sodium 138 (137-145) mmol/L Potassium 4.2 (3.5-5.1) mmol/L Chloride 107 (98-107) mmol/L Carbon Dioxide 19 L (22-30) mmol/L Anion Gap 12 mmol/L BUN 8 (7-17) mg/dL Creatinine 0.88 (0.52-1.04) mg/dL Est GFR (CKD-EPI)AfAm >90 (>60 ml/min/1.73 sqM) Est GFR (CKD-EPI)NonAf >90 (>60 ml/min/1.73 sqM) Glucose 132 H (74-99) mg/dL Calcium 9.3 (8.4-10.2) mg/dL Total Bilirubin 0.3 (0.2-1.3) mg/dL AST 17 (14-36) U/L ALT 12 (4-34) U/L Alkaline Phosphatase 69 (38-126) U/L Total Protein 7.7 (6.3-8.2) g/dL Albumin 4.2 (3.5-5.0) g/dL Amylase 156 H (30-110) U/L Lipase 96 (23-300) U/L Urine Color Red Urine Appearance Cloudy H (Clear) Urine pH 5.5 (5.0-8.0) Ur Specific [place] 1.027 (1.001-1.035) Urine Protein 2+ H (Negative) Urine Glucose (UA) Negative (Negative) Urine Ketones 2+ H (Negative) Urine Blood Large H (Negative) Urine Nitrite Negative (Negative) Urine Bilirubin Negative (Negative) Urine Urobilinogen <2.0 (<2.0) mg/dL Ur Leukocyte Esterase Trace H (Negative) Urine RBC >182 H (0-5) /hpf Urine WBC 6 H (0-5) /hpf Ur Squamous Epith Cells 4 (0-4) /hpf Urine Bacteria Rare H (None) /hpf Urine Mucus Moderate H (None) /hpf Disposition Clinical Impression: Hematemesis, Kidney stone, Flank pain Disposition: ADMITTED IP TO THIS [facility] Referrals: Joe Morgan DO [Primary Care Provider] - 1-2 days Time of Disposition: 12:25
[2019-09-17] MEDS ORDERED: PANTOPRAZOLE 40 MG/10 ML VIAL IVP STA (10:15)
--- NOTE | 2019-09-17 10:38 | XR ---
EXAMINATION TYPE: XR chest 2V DATE OF EXAM: 09/17/2019 COMPARISON: December 15, 2018 HISTORY: Chest pain TECHNIQUE: Frontal and lateral views of the chest are obtained. FINDINGS: There is no focal air space opacity. No evidence for pneumothorax. No pleural effusion. The cardiac silhouette size is within normal limits. The osseous structures are grossly intact. IMPRESSION: 1. No acute cardiopulmonary process.
[2019-09-17 10:59] LABS: Appearance,Urine Cloudy (Clear); Bacteria,Urine Rare /hpf; Bilirubin,Urine Negative (Negative); Blood,Urine Large (Negative); Color,Urine Red; Glucose,Urine (UA) Negative (Negative); Ketones,Urine 2+ (Negative); Leukocyte Esterase,Urine Trace (Negative); Mucus,Urine Moderate /hpf; Nitrite,Urine Negative (Negative); PH, Urine 5.5 (5.0-8.0); Protein,Urine 2+ (Negative); RBC,Urine >182 /hpf (0-5); Specific Gravity,Urine 1.027 (1.001-1.035); Squamous Epithelial Cell,Urine 4 /hpf (0-4); Urobilinogen,Urine <2.0 mg/dL (<2.0); WBC,Urine 6 /hpf (0-5)
[2019-09-17] MEDS ORDERED: HYDROmorphone 0.5 MG/0.5 ML SYRINGE IVP STA (12:16)
[2019-09-17] MEDS ORDERED: SODIUM CHLORIDE 0.9% 1,000 ML IV ONE (12:25)
[2019-09-17] MEDS ORDERED: HYDROmorphone 0.5 MG/0.5 ML SYRINGE IVP PRN (12:27)
[2019-09-17] MEDS: ONDANSETRON 4 MG/2 ML VIAL IVP PRN ×2 (14:15→19:02)
--- NOTE | 2019-09-17 17:04 | P.GSCN ---
History of Present Illness Consult date: 09/17/19 Reason for Consult: Flank Pain Requesting physician: Joe Morgan History of present illness: Patient is a 24-year-old white female with a history of urolithiasis, none of which have required surgery. Her calculi in the past have been composed of calcium oxalate, predominantly calcium oxalate dihydrate. She has experienced intermittent flank pain for the past month, predominantly left-sided. She underwent a computed tomography scan on September 12, revealing 2 small left lower pole renal calculi. The largest measured 3 mm in size, and there was no evidence of ureteral calculi or hydronephrosis. Earlier today, she experienced nausea and vomiting. She vomited blood and thus presented to the emergency room, where she underwent evaluation and was admitted. Her flank pain has subsided since that time. Review of Systems - Constitutional Denies chills, Denies fever - Gastrointestinal Reports hematemesis, Reports nausea, Reports vomiting - Genitourinary Genitourinary: Reports flank pain, Reports hematuria, Reports kidney stones Past Medical History Past Medical History: GI Bleed, Thyroid Disorder Additional Past Medical History / Comment(s): kidney stones, gi bleed DECEMBER 2018 History of Any Multi-Drug Resistant Organisms: None Reported Past Surgical History: Tonsillectomy Past Psychological History: Anxiety, Depression Smoking Status: Current some day smoker Past Alcohol Use History: Occasional Past Drug Use History: None Reported - Past Family History Mother Family Medical History: Diabetes Mellitus, GERD/Reflux, Hypertension, Thyroid Disorder Medications and Allergies Home Medications Medication Instructions Recorded Confirmed Type Levothyroxine Sodium [Synthroid] 50 mcg PO DAILY 02/28/18 09/17/19 History Venlafaxine HCl ER [Effexor XR] 150 mg PO DAILY 02/28/18 09/17/19 History Kurvelo 1 tab PO DAILY 11/06/18 09/17/19 History Ondansetron Odt [Zofran ODT] 4 mg PO Q8HR PRN #12 tab 11/06/18 09/17/19 Rx QUEtiapine [SEROquel] 25 - 50 mg PO HS 11/06/18 09/17/19 History lamoTRIgine [LaMICtal] 150 mg PO BID 11/06/18 09/17/19 History Ibuprofen [Advil] 800 mg PO ONCE PRN 09/17/19 09/17/19 History LORazepam [Ativan] 1 mg PO HS PRN 09/17/19 09/17/19 History Tamsulosin [Flomax] 0.4 mg PO DAILY 09/17/19 09/17/19 History Allergies Allergy/AdvReac Type Severity Reaction Status Date / Time Milk Containing Products AdvReac Nausea & Verified 09/17/19 14:15 [Dairy] Vomiting & Diarrhea Surgical - Exam Vital Signs Temp Pulse Resp BP Pulse Ox 98.5 F 92 18 147/93 100 09/17/19 08:49 09/17/19 08:49 09/17/19 08:49 09/17/19 08:49 09/17/19 08:49 - General well developed, well nourished, no distress - Respiratory normal respiratory effort - Abdomen Abdomen: soft, tender (Mild left lower quadrant tenderness to palpation), no guarding, no rigid, no rebound - Psychiatric oriented to time, oriented to person, oriented to place, speech is normal, memory intact Results - Labs 09/17/19 09:18 09/17/19 09:18 Abnormal Lab Results - Last 24 Hours (Table) 09/17/19 09/17/19 09/17/19 Range/Units 09:18 09:18 10:20 WBC 14.2 H (3.8-10.6) k/uL MCV 79.2 L (80.0-100.0) fL MCH 24.8 L (25.0-35.0) pg Neutrophils # 9.9 H (1.3-7.7) k/uL Carbon Dioxide 19 L (22-30) mmol/L Glucose 132 H (74-99) mg/dL Amylase 156 H (30-110) U/L Urine Appearance Cloudy H (Clear) Urine Protein 2+ H (Negative) Urine Ketones 2+ H (Negative) Urine Blood Large H (Negative) Ur Leukocyte Esterase Trace H (Negative) Urine RBC >182 H (0-5) /hpf Urine WBC 6 H (0-5) /hpf Urine Bacteria Rare H (None) /hpf Urine Mucus Moderate H (None) /hpf Diabetes panel 09/17/19 Range/Units 09:18 Sodium 138 (137-145) mmol/L Potassium 4.2 (3.5-5.1) mmol/L Chloride 107 (98-107) mmol/L Carbon Dioxide 19 L (22-30) mmol/L BUN 8 (7-17) mg/dL Creatinine 0.88 (0.52-1.04) mg/dL Glucose 132 H (74-99) mg/dL Calcium 9.3 (8.4-10.2) mg/dL AST 17 (14-36) U/L ALT 12 (4-34) U/L Alkaline Phosphatase 69 (38-126) U/L Total Protein 7.7 (6.3-8.2) g/dL Albumin 4.2 (3.5-5.0) g/dL Calcium panel 09/17/19 Range/Units 09:18 Calcium 9.3 (8.4-10.2) mg/dL Albumin 4.2 (3.5-5.0) g/dL Pituitary panel 09/17/19 Range/Units 09:18 Sodium 138 (137-145) mmol/L Potassium 4.2 (3.5-5.1) mmol/L Chloride 107 (98-107) mmol/L Carbon Dioxide 19 L (22-30) mmol/L BUN 8 (7-17) mg/dL Creatinine 0.88 (0.52-1.04) mg/dL Glucose 132 H (74-99) mg/dL Calcium 9.3 (8.4-10.2) mg/dL Adrenal panel 09/17/19 Range/Units 09:18 Sodium 138 (137-145) mmol/L Potassium 4.2 (3.5-5.1) mmol/L Chloride 107 (98-107) mmol/L Carbon Dioxide 19 L (22-30) mmol/L BUN 8 (7-17) mg/dL Creatinine 0.88 (0.52-1.04) mg/dL Glucose 132 H (74-99) mg/dL Calcium 9.3 (8.4-10.2) mg/dL Total Bilirubin 0.3 (0.2-1.3) mg/dL AST 17 (14-36) U/L ALT 12 (4-34) U/L Alkaline Phosphatase 69 (38-126) U/L Total Protein 7.7 (6.3-8.2) g/dL Albumin 4.2 (3.5-5.0) g/dL - Imaging CT scan - abdomen: report reviewed, image reviewed Assessment and Plan (1) Calculus of kidney Current Visit: Yes Status: Acute Code(s): N20.0 - CALCULUS OF KIDNEY SNOMED Code(s): 43300592 Plan: The patient's symptoms of flank pain and gross hematuria are consistent with urolithiasis. However, one would not typically expect symptoms of this nature to result from 2 small lower pole renal calculi. It is possible that one or both of these calculi have migrated into the ureter since the computed tomography scan was done. It would be my recommendation that she continued to receive tamsulosin and analgesics, and strain her urine. If her symptoms persist, she will be advised to undergo cystoscopy, retrograde pyelograms, ureteroscopy with laser lithotripsy. She can safely be managed as an outpatient if her pain is controlled. Time with Patient: Greater than 30
[2019-09-17] MEDS: PANTOPRAZOLE 40 MG TABLET PO SCH (17:39)
[2019-09-17] MEDS: VENLAFAXINE HCL ER 150 MG CAP PO SCH (17:39)
[2019-09-17] MEDS: TAMSULOSIN 0.4 MG CAP.ER.24H PO SCH (17:39)
[2019-09-17] MEDS ORDERED: ACETAMINOPHEN IV (For NPO) 1,000 MG in EMPTY BAG 1 BAG IVPB PRN (18:53)
[2019-09-17] MEDS ORDERED: PROCHLORPERAZINE 10 MG TAB PO PRN (21:21)
[2019-09-17] MEDS: KETOROLAC 30 MG/ML 1 ML VIAL IVP PRN (23:00)
[2019-09-17] MEDS: lamoTRIgine 100 MG TAB PO SCH (23:24)
[2019-09-17] MEDS ORDERED: LORazepam 2 MG/ML INJ IV PRN (23:55)
[2019-09-18 05:15] VITALS: BP 116/55; PULSE 89; RESP 16; TEMP 98.2
[2019-09-18] MEDS: ONDANSETRON 4 MG/2 ML VIAL IVP PRN ×2 (05:51→13:11)
[2019-09-18] MEDS ORDERED: LEVOTHYROXINE 50 MCG TAB PO SCH (06:30)
[2019-09-18 07:21] LABS: Basophils # (A) 0.1 k/uL (0-0.2); Basophils % (A) 1 %; Eosinophils # (A) 0.1 k/uL (0-0.7); Eosinophils % (A) 1 %; HGB 11.8 gm/dL (11.4-16.0); Hypochromasia Slight; Lymphocytes % (A) 28 %; MCH 24.3 pg (25.0-35.0); MCHC 30.2 g/dL (31.0-37.0); MCV 80.5 fL (80.0-100.0); Mean Platelet Volume 7.1; Monocytes # (A) 0.5 k/uL (0-1.0); Monocytes % (A) 5 %; Neutrophils # (A) 6.8 k/uL (1.3-7.7); Neutrophils % (A) 63 %; Platelet Count 290 k/uL (150-450); RBC 4.85 m/uL (3.80-5.40); RDW 15.6 % (11.5-15.5); WBC 10.8 k/uL (3.8-10.6)
[2019-09-18 07:30] LABS: African American GFR (CKD) >90 (>60 ml/min/1.73 sqM); Anion Gap 10 mmol/L; Blood Urea Nitrogen 6 mg/dL (7-17); Calcium 8.7 mg/dL (8.4-10.2); Carbon Dioxide 22 mmol/L (22-30); Chloride 107 mmol/L (98-107); Glucose 90 mg/dL (74-99); Non-African American GFR(CKD) >90 (>60 ml/min/1.73 sqM); Potassium 4.1 mmol/L (3.5-5.1); Sodium 139 mmol/L (137-145)
[2019-09-18] MEDS: VENLAFAXINE HCL ER 150 MG CAP PO SCH (08:43)
[2019-09-18] MEDS: TAMSULOSIN 0.4 MG CAP.ER.24H PO SCH (08:43)
[2019-09-18] MEDS: lamoTRIgine 100 MG TAB PO SCH (08:43)
[2019-09-18] MEDS: PANTOPRAZOLE 40 MG TABLET PO SCH (08:44)
[2019-09-18] MEDS: KETOROLAC 30 MG/ML 1 ML VIAL IVP PRN (08:45)
--- NOTE | 2019-09-18 17:42 | CONS ---
CONSULTATION REASON FOR CONSULTATION: Nausea, vomiting, cough and upper GI bleed. HISTORY OF PRESENT ILLNESS: The patient is a 24-year-old pleasant white female who came into the emergency room yesterday presenting with left-sided flank pain. She was diagnosed with kidney stones in the past and she thought she was passing a kidney stone. The pain continued to progressively get worse and she became very nauseated and she had a couple of episodes of emesis. Subsequently she had multiple episodes of dry heaves and she threw up bright red blood, approximately an ounce, which worried her. She came into the emergency room and subsequently was admitted to the hospital for further evaluation. Since being in the hospital she has not had any further episodes of bleeding. In fact, the nausea and vomiting have completely subsided with Zofran. She is presently on Protonix 40 mg daily and a clear liquid diet, tolerating well. She had a similar episode a year ago in December of 2018, at which time she was admitted to the hospital with upper GI bleed. I performed an upper endoscopy on December 15, 2018, that showed a small hiatal hernia and mild gastritis. PAST MEDICAL HISTORY: Her past medical history is significant for kidney stones, anxiety, depression. MEDICATIONS: Medications at home: Lamictal, Effexor, Flomax, Seroquel, Zofran, Synthroid, Ativan, Tylenol and Advil. ALLERGIES: NO KNOWN DRUG ALLERGIES. SOCIAL HISTORY: No smoking or alcohol use. FAMILY HISTORY: Unremarkable. PAST SURGICAL HISTORY: EGD in December of 2018. FAMILY HISTORY: Mother has hypothyroidism and hypertension. REVIEW OF SYSTEMS: CARDIOPULMONARY: No chest pain or shortness of breath. GENITOURINARY: No dysuria or hematuria. MUSCULOSKELETAL: Unremarkable. SKIN: Unremarkable. ENDOCRINE: Unremarkable. PSYCHIATRIC: Unremarkable. NEUROLOGY: Unremarkable. ENT/VISION: Unremarkable. CONSTITUTIONAL: No recent weight loss. No fever, chills, night sweats. PHYSICAL EXAMINATION: Blood pressure 116/55, pulse rate 89, temperature 98.2. HEENT examination unremarkable. Conjunctivae pink. Sclerae anicteric. Oral cavity no lesions. NECK: No JVD or lymph node enlargement. CHEST: Clear to auscultation. HEART: Regular rate and rhythm. ABDOMEN: Soft. Bowel sounds are positive. No organomegaly. EXTREMITIES: No pedal edema. SKIN: No rashes. NEUROLOGIC: Alert and oriented x3. No focal deficits. LABS: WBC 12.3, hemoglobin 11.4, platelets normal. Today hemoglobin is 11.8, WBC 10.8, platelets normal. Basic metabolic panel is within normal limits. BUN and creatinine are normal. IMPRESSION: 1. Nausea and vomiting followed by one episode of hematemesis that happened yesterday, most likely related to a Teodora-Stanton tear. Since being in the hospital, her symptoms have subsided. No further episodes of emesis. Hemoglobin is stable at 11.8 g/dL. Last upper endoscopy December of 2018 showed small hiatal hernia and mild gastritis. 2. History of kidney stones. Dr. Durán is following the patient closely. RECOMMENDATIONS: 1. Continue with Protonix 40 mg daily. 2. Continue with antiemetics as needed. 3. Advance diet as tolerated. 4. No plans on any endoscopic intervention. 5. She can be discharged home today or tomorrow with outpatient followup as needed. Thank you for this consultation. LAURA / OSMANYN: [id number] /
--- NOTE | 2019-09-19 22:46 | P.HPIM ---
History of Present Illness H&P Date: 09/18/19 This is a 24-year-old female admitted after being seen in the emergency department who was recently diagnosed with kidney stones. Patient states she was told she had a kidney stone in the left kidney and a kidney was not swollen. Patient states pain is been ongoing for At least a month intermittently makes her nauseated and then yesterday she began to vomit. Patient states she started having blood in the vomit yesterday morning so she decided to come in to ED. Patient was also diaphoretic. Patient denies any fever or chills. Patient admits to dysuria hematuria urinary frequency Review of Systems GENERAL: Patient denies fever. Denies chills. EYES: Denies blurred vision. Denies vision changes. Denies eye pain. EARS, NOSE, MOUTH, & THROAT: Denies headache. Denies sore throat. Denies ear pain. RESPIRATORY: Denies cough. Denies shortness of breath. Denies sputum production. Denies hemoptysis. CARDIOVASCULAR: Denies chest pain or pressure. Denies palpitations. Denies arrhythmias. GASTROINTESTINAL: Denies abdominal pain. Denies diarrhea. Denies constipation. Denies nausea. Denies vomiting. Denies heartburn. Denies blood in the stool. GENITOURINARY: Admits to urinary frequency. Denies burning. Denies dysuria. Has had cloudy urine. Admits to blood in the urine. MUSCULOSKELETAL: Denies myalgias. Denies joint swelling. Denies decreased range of motion beyond patients baseline. INTEGUMENTARY: Denies pruitis. Denies rash. PSYCHIATRIC: Denies suicidal or homicial ideations. Except problems with anxiety depression frustrated with this admission ENDOCRINE: Denies weight change. Denies polydipsia. Denies polyuria. HEMATOLOGIC: Denies bleeding disorders. Past Medical History Past Medical History: GI Bleed, Thyroid Disorder Additional Past Medical History / Comment(s): kidney stones, gi bleed DECEMBER 2018 History of Any Multi-Drug Resistant Organisms: None Reported Past Surgical History: Tonsillectomy Past Psychological History: Anxiety, Depression Smoking Status: Current some day smoker Past Alcohol Use History: Occasional Past Drug Use History: None Reported - Past Family History Mother Family Medical History: Diabetes Mellitus, GERD/Reflux, Hypertension, Thyroid Disorder Medications and Allergies Home Medications Medication Instructions Recorded Confirmed Type Levothyroxine Sodium [Synthroid] 50 mcg PO DAILY 02/28/18 09/17/19 History Venlafaxine HCl ER [Effexor XR] 150 mg PO DAILY 02/28/18 09/17/19 History Kurvelo 1 tab PO DAILY 11/06/18 09/17/19 History Ondansetron Odt [Zofran ODT] 4 mg PO Q8HR PRN #12 tab 11/06/18 09/17/19 Rx QUEtiapine [SEROquel] 25 - 50 mg PO HS 11/06/18 09/17/19 History lamoTRIgine [LaMICtal] 150 mg PO BID 11/06/18 09/17/19 History LORazepam [Ativan] 1 mg PO HS PRN 09/17/19 09/17/19 History Tamsulosin [Flomax] 0.4 mg PO DAILY 09/17/19 09/17/19 History Acetaminophen Tab [Tylenol] 650 mg PO Q6H PRN #1 tab 09/18/19 Rx Ibuprofen [Advil] 600 mg PO Q8H PRN #0 09/18/19 09/17/19 Rx Allergies Allergy/AdvReac Type Severity Reaction Status Date / Time Milk Containing Products AdvReac Nausea & Verified 09/17/19 14:15 [Dairy] Vomiting & Diarrhea Physical Exam Osteopathic Statement: *. No significant issues noted on an osteopathic structural exam other than those noted in the History and Physical/Consult. GENERAL: This is a -24 year-old in no apparent distress at the time of examination. Pleasant and cooperative. HEENT: Head is atraumatic, normocephalic. Pupils are equal, round, and reactive to light. Sclerae anicteric. Conjunctivae are clear. Mucus membranes of the mouth are moist. Neck is supple. RESPIRATORY: Clear to auscultation. No wheezes, rales, or rhonchi. No use of accessory muscles. Patient maintaining oxygen saturation greater than 92%. No chest wall tenderness is noted on palpation or with deep breathing. CARDIOVASCULAR: Regular rate and rhythm. S1 and S2 noted. No systolic or diastolic murmur auscultated. No JVD noted. No S3 or S4 noted. GASTROINTESTINAL: No distention noted. Abdomen soft and round. Normal active bowel sounds auscultated x 4 quadrants. No pain or tenderness noted upon palpation. INTEGUMENTARY: No cyanosis. No jaundice. No rashes noted. No cellulitis noted. EXTREMITIES: 2+ peripheral pulses. No evidence of peripheral edema. No calf tenderness noted. NEUROLOGIC: Cranial nerves II-XII intact. PSYCHIATRIC: Awake, alert, and oriented X 3. Appropriate affect. Intact judgement and insight. Results CBC & Chem 7: 09/18/19 06:34 09/18/19 06:34 Thrombosis Risk Factor Assmnt - Choose All That Apply Any of the Below Risk Factors Present?: Yes Each Factor Represents 1 point: Obesity (BMI >25), Oral contraceptives or hormone replacement therapy Other Risk Factors: No Thrombosis Risk Factor Assessment Total Risk Factor Score: 2 Thrombosis Risk Factor Assessment Level: Low Risk Assessment and Plan (1) Generalized anxiety disorder with panic attacks Status: Acute Code(s): F41.1 - GENERALIZED ANXIETY DISORDER; F41.0 - PANIC DISORDER [EPISODIC PAROXYSMAL ANXIETY] SNOMED Code(s): 29129699 (2) Moderate major depression Status: Acute Code(s): F32.1 - MAJOR DEPRESSIVE DISORDER, SINGLE EPISODE, MODERATE SNOMED Code(s): 121400 (3) Calculus of kidney Status: Acute Code(s): N20.0 - CALCULUS OF KIDNEY SNOMED Code(s): 29672044 (4) Coffee ground emesis Status: Acute Code(s): K92.0 - HEMATEMESIS SNOMED Code(s): 54336494 (5) Epigastric abdominal pain Status: Acute Code(s): R10.13 - EPIGASTRIC PAIN SNOMED Code(s): 63697825 (6) Epigastric discomfort Status: Acute Code(s): R10.13 - EPIGASTRIC PAIN SNOMED Code(s): 058094972 (7) Flank pain Status: Acute Code(s): R10.9 - UNSPECIFIED ABDOMINAL PAIN SNOMED Code(s): 226028811 (8) GI bleed Status: Acute Code(s): K92.2 - GASTROINTESTINAL HEMORRHAGE, UNSPECIFIED SNOMED Code(s): 41363288 (9) Hematemesis Status: Acute Code(s): K92.0 - HEMATEMESIS SNOMED Code(s): 0190546 (10) Morbid obesity with BMI of 50.0-59.9, adult Status: Acute Code(s): E66.01 - MORBID (SEVERE) OBESITY DUE TO EXCESS CALORIES; Z68.43 - BODY MASS INDEX (BMI) 50.0-59.9, ADULT SNOMED Code(s): 451872279 (11) Vomiting Status: Acute Code(s): R11.10 - VOMITING, UNSPECIFIED SNOMED Code(s): 845250578 (12) Hypothyroidism Status: Acute Code(s): E03.9 - HYPOTHYROIDISM, UNSPECIFIED SNOMED Code(s): 11866185 Plan: Plan admit patient for urological evaluation progress pain control nausea and vomiting form of anti-emetics. Bowel by urology services Time with Patient: Greater than 30
--- NOTE | 2019-09-19 22:51 | P.DS ---
Providers Date of admission: 09/17/19 12:25 Expected date of discharge: 09/18/19 Attending physician: Joe Morgan Consults: 09/17/19 12:25 Consult Physician Urgent Consulting Provider: Alejandro Durán Consult Reason/Comments: Kidney stone Do you want consulting provider notified?: Yes Consult Physician Urgent Consulting Provider: Deondre Dominguez Consult Reason/Comments: Hematemesis Do you want consulting provider notified?: Yes Primary care physician: Joe Morgan - Discharge Diagnosis(es) (1) Generalized anxiety disorder with panic attacks Status: Acute (2) Moderate major depression Status: Acute (3) Calculus of kidney Status: Acute (4) Coffee ground emesis Status: Acute (5) Epigastric abdominal pain Status: Acute (6) Epigastric discomfort Status: Acute (7) Flank pain Status: Acute (8) GI bleed Status: Acute (9) Hematemesis Status: Acute (10) Morbid obesity with BMI of 50.0-59.9, adult Status: Acute (11) Vomiting Status: Acute (12) Hypothyroidism Status: Acute Hospital Course: She was admitted to the hospital with acute renal lithiasis seen by urology and cleared for discharge her pain was improved after 24 hour admission. She had no further bouts of emesis or hematemesis. Her urine was clear. sHe had recent upper endoscopy evaluation from Dr. Glasgow. In no further endoscopy was acute. Plan - Discharge Summary Discharge Rx Participant: Yes New Discharge Prescriptions: New Acetaminophen Tab [Tylenol] 650 mg PO Q6H PRN #1 tab PRN Reason: Pain Continue Venlafaxine HCl ER [Effexor XR] 150 mg PO DAILY Levothyroxine Sodium [Synthroid] 50 mcg PO DAILY lamoTRIgine [LaMICtal] 150 mg PO BID QUEtiapine [SEROquel] 25 - 50 mg PO HS Kurvelo 1 tab PO DAILY Ondansetron Odt [Zofran ODT] 4 mg PO Q8HR PRN #12 tab PRN Reason: Nausea Tamsulosin [Flomax] 0.4 mg PO DAILY LORazepam [Ativan] 1 mg PO HS PRN PRN Reason: Insomnia Changed Ibuprofen [Advil] 600 mg PO Q8H PRN #0 PRN Reason: Pain Discharge Medication List Levothyroxine Sodium [Synthroid] 50 mcg PO DAILY 02/28/18 [History] Venlafaxine HCl ER [Effexor XR] 150 mg PO DAILY 02/28/18 [History] Kurvelo 1 tab PO DAILY 11/06/18 [History] Ondansetron Odt [Zofran ODT] 4 mg PO Q8HR PRN #12 tab 11/06/18 [Rx] QUEtiapine [SEROquel] 25 - 50 mg PO HS 11/06/18 [History] lamoTRIgine [LaMICtal] 150 mg PO BID 11/06/18 [History] LORazepam [Ativan] 1 mg PO HS PRN 09/17/19 [History] Tamsulosin [Flomax] 0.4 mg PO DAILY 09/17/19 [History] Acetaminophen Tab [Tylenol] 650 mg PO Q6H PRN #1 tab 09/18/19 [Rx] Ibuprofen [Advil] 600 mg PO Q8H PRN #0 09/18/19 [Rx] Follow up Appointment(s)/Referral(s): Alejandro Durán MD [STAFF PHYSICIAN] - 09/24/19 2:00 pm Joe Morgan DO [Primary Care Provider] - 09/21/19 10:30 am Ambulatory/Diagnostic Orders: Complete Blood Count w/diff [LAB.AMB] Time Frame: 3 Days, Location: None Selected Patient Instructions/Handouts: Kidney Stones (DC), Hematemesis (GEN) Activity/Diet/Wound Care/Special Instructions: Strain urine Activity as tolerated Diet as tolerated Discharge Disposition: HOME SELF-CARE
== END 2019-09-18 14:20 | disposition home or self-care (01) ==
LOC: EC 08:47 → 6PED 12:25 → 5NMEDONC 23:03
PROVIDERS: ADMIT Family Medicine; ATTEND Family Medicine
DX: N20.0 Calculus of kidney (principal); F41.1 Generalized anxiety disorder; F41.0 Panic disorder [episodic paroxysmal anxiety]; F32.9 Major depressive disorder, single episode, unspecified; Z87.19 Personal history of other diseases of the digestive system; Z98.890 Other specified postprocedural states; E66.01 Morbid (severe) obesity due to excess calories; Z68.43 Body mass index [BMI] 50.0-59.9, adult; Z83.3 Family history of diabetes mellitus; Z82.49 Family history of ischemic heart disease and other diseases of the circulatory system; Z83.79 Family history of other diseases of the digestive system; Z79.3 Long term (current) use of hormonal contraceptives; Z79.890 Hormone replacement therapy; Z79.899 Other long term (current) drug therapy; Z91.011 Allergy to milk products
CPT/HCPCS: 96376 ×3; 96375 ×2; 96361; 96374; 99285; 36415; 80053; 80048; 82150; 83690; 85025 ×2; 81001; 87635; 71046; G0378 ×3; S0183; J2060; J2405 ×2; J1885 ×2; J1170 ×2; C9113

== ENCOUNTER → 2019-10-03 | Outpatient (CLI) | payer MEDICAID ==
[2019-10-03 11:42] LABS: Basophils # (A) 0.1 k/uL (0-0.2); Basophils % (A) 0 %; Eosinophils # (A) 0.2 k/uL (0-0.7); Eosinophils % (A) 2 %; HCT 41.1 % (34.0-46.0); HGB 12.9 gm/dL (11.4-16.0); Hypochromasia Marked; Lymphocytes # (A) 2.5 k/uL (1.0-4.8); Lymphocytes % (A) 20 %; MCH 25.5 pg (25.0-35.0); MCHC 31.3 g/dL (31.0-37.0); MCV 81.6 fL (80.0-100.0); Mean Platelet Volume 6.4; Monocytes # (A) 0.4 k/uL (0-1.0); Monocytes % (A) 3 %; Neutrophils % (A) 73 %; Platelet Count 357 k/uL (150-450); RBC 5.04 m/uL (3.80-5.40); RDW 14.7 % (11.5-15.5); WBC 12.4 k/uL (3.8-10.6)
[2019-10-03 11:48] LABS: African American GFR (CKD) >90 (>60 ml/min/1.73 sqM); Anion Gap 9 mmol/L; Blood Urea Nitrogen 9 mg/dL (7-17); Calcium 9.6 mg/dL (8.4-10.2); Carbon Dioxide 25 mmol/L (22-30); Chloride 105 mmol/L (98-107); Glucose 108 mg/dL (74-99); Non-African American GFR(CKD) >90 (>60 ml/min/1.73 sqM); Sodium 139 mmol/L (137-145)
== END | disposition home or self-care (01) ==
LOC: LABPAT 11:09
PROVIDERS: ATTEND Urology
DX: Z01.818 Encounter for other preprocedural examination (principal); N20.0 Calculus of kidney
CPT/HCPCS: 36415; 80048; 85025; 87086

== ENCOUNTER → 2019-10-04 | Outpatient (CLI) | payer MEDICAID | END | disposition home or self-care (01) | LOC: LABWHC1 09:02 | PROVIDERS: ATTEND Urology | DX: Z11.59 Encounter for screening for other viral diseases (principal) ==

== ENCOUNTER 2019-10-05 13:47 | Day surgery (SDC) | payer MEDICAID ==
[2019-10-03 15:27] VITALS: BMI 53.1
--- NOTE | 2019-10-04 11:09 | P.GSHP ---
History of Present Illness H&P Date: 10/04/19 Chief Complaint: Left flank pain The patient is a 24-year-old white female with a history of calcium oxalate urolithiasis, none of which have required surgery. She has experienced intermittent flank pain for the past month, predominantly left-sided. She underwent a computed tomography scan on September 12, revealing 2 small left lower pole renal calculi. The largest measured 3 mm in size, and there was no evidence of ureteral calculi or hydronephrosis. Earlier today, she experienced nausea and vomiting. She vomited blood and thus presented to the emergency room, where she underwent evaluation and was admitted. Her pain has persisted, and she has thus elected to undergo ureteroscopic removal of her left renal calculi. Retrograde pyelogram will be performed to confirm the absence of ureteral calculi. - Constitutional Constitutional: Denies chills, Denies fever - Gastrointestinal Gastrointestinal: Reports nausea, Reports vomiting - Genitourinary (Female) Genitourinary: Reports flank pain, Reports hematuria Past Medical History Past Medical History: GI Bleed, Skin Disorder, Thyroid Disorder Additional Past Medical History / Comment(s): Hx kidney stones, GI bleed DECEMBER 2018 & again 09/17/19 R/T excessive vomiting/dry heaves. 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 History of Any Multi-Drug Resistant Organisms: None Reported Past Surgical History: Tonsillectomy Additional Past Surgical History / Comment(s): EGD 12/2018 Past Anesthesia/Blood Transfusion Reactions: Motion Sickness Smoking Status: Current some day smoker - Past Family History Mother Family Medical History: Cancer, Diabetes Mellitus, GERD/Reflux, Hypertension, Thyroid Disorder Additional Family Medical History / Comment(s): skin cancer Medications and Allergies Home Medications Medication Instructions Recorded Confirmed Type Levothyroxine Sodium [Synthroid] 50 mcg PO DAILY 02/28/18 10/03/19 History Venlafaxine HCl ER [Effexor XR] 150 mg PO DAILY 02/28/18 10/03/19 History Kurvelo 1 tab PO DAILY 11/06/18 10/03/19 History Ondansetron Odt [Zofran ODT] 4 mg PO Q8HR PRN #12 tab 11/06/18 10/03/19 Rx QUEtiapine [SEROquel] 25 - 50 mg PO HS 11/06/18 10/03/19 History lamoTRIgine [LaMICtal] 150 mg PO BID 11/06/18 10/03/19 History LORazepam [Ativan] 1 mg PO HS PRN 09/17/19 10/03/19 History Tamsulosin [Flomax] 0.4 mg PO DAILY 09/17/19 10/03/19 History Ketorolac [Toradol] 10 mg PO Q6HR PRN 10/03/19 10/03/19 History Phenazopyridine HCl 95 mg PO TID PRN 10/03/19 10/03/19 History Allergies Allergy/AdvReac Type Severity Reaction Status Date / Time Milk Containing Products AdvReac Nausea & Verified 10/03/19 15:02 [Dairy] Vomiting & Diarrhea Surgical - Exam - General well developed, well nourished, no distress - Respiratory normal respiratory effort, clear to auscultation - Cardiovascular Rhythm: regular Abnormal Heart Sounds: no systolic murmur, no diastolic murmur, no rub, no S3 Gallop, no S4 Gallop, no click, no other - Abdomen Abdomen: soft, non tender, no guarding, no rigid, no rebound - Psychiatric oriented to time, oriented to person, oriented to place, speech is normal, memory intact Assessment and Plan (1) Calculus of kidney Status: Acute Code(s): N20.0 - CALCULUS OF KIDNEY SNOMED Code(s): 61763329 Plan: Cystoscopy, left retrograde pyelogram, left ureteroscopy with holmium laser lithotripsy, possible left ureteral stent insertion. Procedure has been reviewed in detail with the patient. She is aware of potential risks, which include anesthesia, bleeding, infection, inability to successfully remove the calculi, and ureteral injury. She was made aware of the fact that she may require a ureteral stent postoperatively, and that this can cause discomfort in some patients.
[~2019-10-05 13:47] MED LIST: DEXAMETHASONE SOD PHOSPHATE 10 MG/ML 1 ML VIAL IV ONE; LACTATED RINGERS 1,000 ML IV SCH; MIDAZOLAM 2 MG/2 ML VIAL IV PRN; ONDANSETRON 4 MG/2 ML VIAL IVP ONE; SCOPOLAMINE 1.5MG/72HR PATCH TRANSDERM ONE
--- NOTE | 2019-10-05 14:26 | XR ---
KUB HISTORY: Left renal calculus, preop Frontal KUB submitted on [address] abdomen pelvis 09/13/2019 Small oculus seen in the left kidney level on CT likely seen on one of the 2 images the level of the mid pole of the left kidney with certainty on plain film. No evident bowel obstruction or pneumoperit oneum. There is a calcification seen at the level of the distal ureter as well as a probable phleboli th more inferiorly. IMPRESSION: Interval migration of renal calculus is suspected to the distal ureter. Left nephrolithia sis.
[2019-10-05] MEDS ORDERED: LIDOCAINE 1% (10MG/ML) FOR IV START INTRADERMA ONE (14:45)
[2019-10-05] MEDS ORDERED: LIDOCAINE 1% INJ 10MG/ML (20 ML MDV) ONE (15:19)
[2019-10-05] MEDS ORDERED: MIDAZOLAM 2 MG/2 ML VIAL ONE (15:19)
[2019-10-05] MEDS ORDERED: HYDROmorphone (PF) 1 MG/ML ONE (15:19)
[2019-10-05] MEDS ORDERED: fentaNYL (PF) 50 MCG/ML 2 ML AMP ONE (15:19)
[2019-10-05] MEDS ORDERED: GLYCOPYRROLATE 0.2 MG/ML 2 ML VIAL ONE (15:19)
[2019-10-05] MEDS ORDERED: PROPOFOL 10 MG/ML 20 ML VIAL IV ONE (15:19)
[2019-10-05] MEDS ORDERED: NEOSTIGMINE 1 MG/ML 10 ML VIAL ONE (15:19)
[2019-10-05] MEDS ORDERED: ROCURONIUM BROMIDE 10 MG/ML 5 ML VIAL IV ONE (15:19)
[2019-10-05] MEDS ORDERED: SUCCINYLCHOLINE CHLORIDE 100 MG/5 ML SYR IV ONE (15:19)
[2019-10-05 16:42] VITALS: TEMP 97.5
[2019-10-05] MEDS ORDERED: diphenhydrAMINE 50 MG/ML 1 ML VIAL IVP ONE (16:43)
[2019-10-05] MEDS: HYDROmorphone 0.5 MG/0.5 ML SYRINGE IVP PRN ×2 (16:47→16:52)
--- NOTE | 2019-10-05 16:51 | FL ---
EXAMINATION TYPE: FL guidance operating room DATE OF EXAM: 10/05/2019 FLUOROSCOPY Fluoroscopy time of 22 seconds was used during urologic intervention for left ureteral stone and sten t insertion. 1 image/s document/s the procedure.
--- NOTE | 2019-10-05 16:59 | P.OP ---
Date of Procedure: 10/05/19 Preoperative Diagnosis: Left renal calculi Postoperative Diagnosis: Left renal calculi, left distal ureteral calculus Procedure(s) Performed: Cystoscopy, left ureteroscopy with Holmium laser lithotripsy, left ureteral stent insertion Anesthesia: KERWINA Surgeon: Alejandro Durán Estimated Blood Loss (ml): 5 IV fluids (ml): 700 Pathology: none sent Condition: stable Disposition: PACU Indications for Procedure: The patient is a 24-year-old white female with a history of calcium oxalate urolithiasis, none of which have required surgery. She has experienced intermittent flank pain for the past month, predominantly left-sided. She underwent a computed tomography scan on September 12, revealing 2 small left lower pole renal calculi. The largest measured 3 mm in size, and there was no evidence of ureteral calculi or hydronephrosis. Earlier today, she experienced nausea and vomiting. She vomited blood and thus presented to the emergency room, where she underwent evaluation and was admitted. Her pain has persisted, and she has thus elected to undergo ureteroscopic removal of her left renal calculi. Retrograde pyelogram will be performed to confirm the absence of ureteral calculi. Operative Findings: Small left distal ureteral calculus. Left lower pole renal calculi. All calculi measure 3-4 mm in size or less. All calculi fragmented completely. Description of Procedure: The patient was taken to the operating room and placed in the dorsolithotomy position, with legs supported in Valeriano stirrups. The external genitalia was prepped and draped sterilely. The 30 lens was used to introduce the 22-Danish Stortz cystoscopic sheath through the urethra and into the bladder under direct vision. The bladder was examined in its entirety. The right ureteral orifice appeared normal, and clear urine effluxed from it. Edema surrounded the left ureteral orifice. No tumors or foreign bodies were seen. The A[facility]I semirigid ureteroscope was advanced into the bladder, and the left ureteral orifice was cannulated. The ureteroscope was advanced a short distance under direct vision, and an impacted calculus was identified measuring approximately 3 mm in size. The 200 micron Holmium laser probe was passed through the ureteroscope, and lithotripsy was performed. the calculus was fragmented, leaving no residual calculus fragments exceeding the size of the laser fiber tip. A 0.038 inch Glidewire was then passed through the ureteroscope and up to the left renal pelvis. The ureteroscope was removed, and the Olympus flexible ureteroscope was passed over the wire and into the kidney. Two lower ple renal calculi were identified, and the Holmium laser was used to fragment both. The Glidewire was then passed through the ureteroscope, which was withdrawn under direct vision. There was no evidence of ureteral trauma. The Glidewire was backloaded into the cystoscope, which was passed into the bladder. A 24 cm, 4.8-Danish double-J ureteral stent was placed over the wire. Proper stent positioning was verified fluoroscopically and endoscopically. The bladder was emptied and the cystoscope removed. The patient tolerated the procedure well and was taken to the recovery room in stable condition. MUSIC [facility]OCKS Report: Procedure Acuity: Semi-Urgent Stone Size and Location: 1 left distal ureteral calculus, 2 left lower pole renal calculi. All calculi measured approximately 3 mm in size. Ureteral Dilation: No Ureteral Access Sheath Used: No Stone Sent for Analysis: No All Stones/Fragments Were Removed with a Basket: No Complications: No Preoperative Antibiotics Given: Yes Stent Placed: Yes If Stent Placed, Was String Left Attached: Yes If Stent Placed, When is it to be Removed: 5 days Discharge Medications: Tamsulosin, Detrol LA, Toradol
[2019-10-05] MEDS ORDERED: fentaNYL (PF) 50 MCG/ML 2 ML AMP IVP ONE (17:01)
[2019-10-05] MEDS ORDERED: MIDAZOLAM 2 MG/2 ML VIAL IVP ONE (17:01)
[2019-10-05 17:06] VITALS: RESP 18
[2019-10-05 17:41] VITALS: BP 156/84; PULSE 100
== END 2019-10-05 18:37 | disposition home or self-care (01) ==
LOC: OR 13:47
PROVIDERS: ATTEND Urology
DX: N20.2 Calculus of kidney with calculus of ureter (principal); E07.9 Disorder of thyroid, unspecified; F17.200 Nicotine dependence, unspecified, uncomplicated; Z79.890 Hormone replacement therapy; Z79.899 Other long term (current) drug therapy; Z87.442 Personal history of urinary calculi; Z90.89 Acquired absence of other organs; Z91.011 Allergy to milk products; Z91.09 Other allergy status, other than to drugs and biological substances; Z87.2 Personal history of diseases of the skin and subcutaneous tissue; Z83.3 Family history of diabetes mellitus; Z82.49 Family history of ischemic heart disease and other diseases of the circulatory system; Z80.8 Family history of malignant neoplasm of other organs or systems
CPT/HCPCS: 81025; 74018; 52356; C2625; C1769; J2250; J1200; J1100; J2710; J2405; J2001; J3010; J1170 ×2; J0330; J2704

== ENCOUNTER → 2019-11-08 | Outpatient (CLI) | payer MEDICAID ==
--- NOTE | 2019-11-08 12:29 | US ---
EXAMINATION TYPE: US kidneys/renal and bladder DATE OF EXAM: 11/08/2019 COMPARISON: CT 09/13/2019 CLINICAL HISTORY: 24-year-old female N20.0 calculus of kidney. HX of stones TECHNIQUE: Multiple sonographic images of the kidneys and bladder are obtained. FINDINGS: EXAM MEASUREMENTS: Right Kidney: 9.5 x 4.5 x 5.0 cm Left Kidney: 10.3 x 5.3 x 5.1 cm No hydronephrosis on either side. Bladder: 3.8 cm cystic structure along the right posterior bladder wall. Bilateral Jets seen: Yes IMPRESSION: 1. A 3.8 cm cystic structure along the right posterior bladder wall. Possible dominant follicle or fu nctional cyst of the adjacent right ovary. No bladder wall diverticulum is seen on the patient's rece nt 09/13/2019 CT. 6-8 week follow-up ultrasound to reassess. 2. No hydronephrosis.
--- NOTE | 2019-11-08 13:18 | XR ---
KUB HISTORY: Calculus of kidney Frontal KUB and 2 images correlated prior KUB 10/05/2019, CT 09/23/2019 calcification in left hemipelvis is again noted. Previous identified calcification overlying the left kidney may fragmented in the interval, 2 smaller calcifications are present overlying the left kidne y measuring only approximately 2 mm to 3 mm in size. IMPRESSION: Suspect some persistent left nephrolithiasis. Probable phlebolith left hemipelvis.
== END | disposition home or self-care (01) ==
LOC: RADUSWWP 07:33
PROVIDERS: ATTEND Urology
DX: N20.0 Calculus of kidney (principal)
CPT/HCPCS: 74018; 76770

== ENCOUNTER → 2020-03-03 | Outpatient (CLI) | payer MEDICAID ==
--- NOTE | 2020-03-03 15:08 | US ---
EXAMINATION TYPE: US pelvis complete transvag DATE OF EXAM: 03/03/2020 COMPARISON: Renal ultrasound 11/08/2019 CLINICAL HISTORY: 24-year-old female N83.20. Follow-up cystic area noted on previous kidney ultrasoun d, possible right cyst, no pain, G0 TECHNIQUE: Transabdominal and Transvaginal sonographic images of the pelvis were acquired. Date of LMP: 02/11/2020 FINDINGS: EXAM MEASUREMENTS: Uterus: 7.5 x 4.8 x 3.7 cm Endometrial Stripe: 0.6 cm Right Ovary: 2.9 x 1.6 x 1.6 cm Left Ovary: 2.8 x 1.5 x 1.5 cm 1. Uterus: Anteverted. There is an elongated cystic area along the lower uterine segment/upper cervi x measuring up to 2.3 cm long and 3 mm thick 2. Endometrium: Otherwise wnl 3. Right Ovary: wnl 4. Left Ovary: wnl 5. Bilateral Adnexa: wnl. The previous 3.8 cm right adnexal cystic lesion has resolved. 6. Posterior cul-de-sac: wnl IMPRESSION: 1. Elongated cystic area within the uterus along the lower uterine segment/upper cervix measuring 2.3 cm long and 3 mm thick. Possibly related to menses with early endometrial breakdown and hemorrhagic fluid. 6-8 week follow-up recommended to reassess. 2. The 3.8 cm right adnexal cystic lesion seen on the 11/08/2019 and ultrasound has resolved.
--- NOTE | 2020-03-04 11:39 | USB ---
Reason for exam: clinical finding. Indicated problem(s): lump or thickening in the left breast. Physical Findings: Nurse Summary: Patient complains of left breast lump x 3 years, 2cm soft, circumscribed lump left beast 7 o'clock (nurse mj). US Breast LT Left complete breast ultrasound includes all four quadrants, the retroareolar region and axilla. Finding demonstrates a 1.5 x 1.8 x 1.4cm isoechoic, probable lipoma at 7 o'clock. This was seen in 2018 as well compatibel with a benign lipoma. These results were verbally communicated with the patient and result sheet given to the patient on 03/03/20. ASSESSMENT: Benign, BI-RAD 2 RECOMMENDATION: Routine screening mammogram of both breasts at age 39. Manage patient on a clinical basis. Excision can be performed if symptomatic or growth is noted.
== END | disposition home or self-care (01) ==
LOC: RADUSWWP 09:38
PROVIDERS: ATTEND Obstetrics & Gynecology
DX: N63.20 Unspecified lump in the left breast, unspecified quadrant (principal); N88.8 Other specified noninflammatory disorders of cervix uteri; N83.8 Other noninflammatory disorders of ovary, fallopian tube and broad ligament
CPT/HCPCS: 76830; 76856

== ENCOUNTER 2020-06-13 13:44 | Observation (INO) | payer BC, MEDICAID ==
--- NOTE | 2020-06-13 14:46 | ED ---
Chest Pain HPI - General Source: patient Mode of arrival: wheelchair Limitations: no limitations <Chen Weldon - Last Filed: 06/13/20 18:11> <Valente Francis - Last Filed: 06/13/20 19:07> - General Chief Complaint: Chest Pain Stated Complaint: Chest Pain Time Seen by Provider: 06/13/20 13:58 - History of Present Illness Initial Comments: patient is a 25-year-old female with history of anxiety, bipolar, presenting to the emergency Department with complaints of intermittent chest pain for the last few months. Patient states that she suddenly lost her brother in November of last year for some sort of sudden cardiac event They are not sure exactly what caused it yet. Patient states ever since then she's been having increase in anxiety symptoms, intermittent chest discomfort as well as high heart rates. Patient is very anxious and feels like there could be something else wrong. Patient states she is prescribed Ativan to take as needed for increasing anxiety, she did take 2 mg this morning without improvement in her symptoms. Patient is accompanied by her mother and her sister today. Patient does admit to history of thyroid disorder, no other pertinent past medical history. She denies any history of blood clots, she denies any leg pain today. She states she does not feel short of breath just that her heart is beating more rapidly at times. He denies any recent fevers or coughs. She denies any abdominal discomfort, no nausea or vomiting. She denies being . She has no fur ther complaints at this time. Upon arrival to the ER, her pulse is 108, BP is 156/103, rest of vitals are normal. (Chen Weldon) - Related Data Home Medications Medication Instructions Recorded Confirmed Levothyroxine Sodium [Synthroid] 50 mcg PO DAILY 02/28/18 06/13/20 Venlafaxine HCl ER [Effexor XR] 150 mg PO DAILY 02/28/18 06/13/20 Kurvelo 1 tab PO DAILY 11/06/18 06/13/20 QUEtiapine [SEROquel] 25 - 50 mg PO HS 11/06/18 06/13/20 lamoTRIgine [LaMICtal] 150 mg PO BID 11/06/18 06/13/20 LORazepam [Ativan] 1 mg PO Q8H PRN 09/17/19 06/13/20 Omeprazole 20 mg PO HS 06/13/20 06/13/20 Allergies Allergy/AdvReac Type Severity Reaction Status Date / Time Milk Containing Products AdvReac Nausea & Verified 06/13/20 15:13 [Dairy] Vomiting & Diarrhea Review of Systems ROS Other: All systems not noted in ROS Statement are negative. <Chen Weldon - Last Filed: 06/13/20 18:11> ROS Other: All systems not noted in ROS Statement are negative. <Valente Francis - Last Filed: 06/13/20 19:07> ROS Statement: Those systems with pertinent positive or pertinent negative responses have been documented in the HPI. EKG Findings - EKG Comments: EKG Findings:: EKG shows normal sinus rhythm, normal ECG, no signs of an acute process. Ventricular rate 89, MT interval 142, QT 364. <Chen Weldon - Last Filed: 06/13/20 18:11> Past Medical History Past Medical History: GI Bleed, Skin Disorder, Thyroid Disorder Additional Past Medical History / Comment(s): Hx kidney stones, GI bleed DECEMBER 2018 & again 09/17/19 R/T excessive vomiting/dry heaves. 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 History of Any Multi-Drug Resistant Organisms: None Reported Past Surgical History: Tonsillectomy Additional Past Surgical History / Comment(s): EGD 12/2018 Past Anesthesia/Blood Transfusion Reactions: Motion Sickness Past Psychological History: Anxiety, Depression Smoking Status: Current every day smoker Past Alcohol Use History: None Reported Past Drug Use History: Marijuana - Past Family History Mother Family Medical History: Cancer, Diabetes Mellitus, GERD/Reflux, Hypertension, Thyroid Disorder Additional Family Medical History / Comment(s): skin cancer Father Family Medical History: Diabetes Mellitus Brother(s) Additional Family Medical History / Comment(s): Sudden cardiac , LVH, LAD 70% occlusion <Chen Weldon - Last Filed: 06/13/20 18:11> General Exam Limitations: no limitations <Chen Weldon - Last Filed: 06/13/20 18:11> - General Exam Comments Initial Comments: GENERAL: Patient is well-developed and well-nourished. Patient is nontoxic and in no acute distress. HEAD: Atraumatic, normocephalic. EYES: Pupils equal round and reactive to light, extraocular movements intact, sclera anicteric, conjunctiva are normal. Eyelids were unremarkable. ENT: TMs normal, nares patent, oropharynx clear without exudates. Moist mucous membranes. NECK: Normal range of motion, supple without lymphadenopathy or JVD. LUNGS: Unlabored respirations. Breath sounds clear to auscultation bilaterally and equal. No wheezes rales or rhonchi. HEART: Slightly tachycardiarate and rhythm without murmurs, rubs or gallops. ABDOMEN: Soft, nontender, normoactive bowel sounds. No guarding, no rebound. No masses appreciated. : Deferred MUSCULOSKELETAL: Normal extremities with adequate strength and normal range of motion, no pitting or edema. No clubbing or cyanosis. NEUROLOGICAL: Patient is alert and oriented x 3. Motor and sensory are also intact. Cranial nerves II through XII grossly intact. Symmetrical smile. Normal speech, normal gait. PSYCH: she seems mildly anxious. SKIN: Warm, Dry, normal turgor, no rashes or lesions noted. (Chen Weldon) Course Vital Signs 06/13/20 06/13/20 13:49 18:23 Temperature 98.2 F Pulse Rate 108 H 75 Respiratory 18 16 Rate Blood Pressure 156/103 140/89 O2 Sat by Pulse 98 98 Oximetry Chest Pain [facility] <Chen Weldon - Last Filed: 06/13/20 18:11> <Valente Francis - Last Filed: 06/13/20 19:07> - [facility] patient is a 25-year-old female with history of anxiety presenting with intermittent chest discomfort over the past few months as well as elevated heart rate. She suddenly lost her brother in November and that's when her symptoms began. She is prescribed Ativan, she did take 2 mg this morning without improvement in her symptoms. She did arrive study tachycardia, slightly hypertensive. Her EKG shows no acute process. Laboratory shows a white count 14.1, most likely reactive. Rest of laboratory unremarkable, troponin is negative, TSH is normal. Chest x-ray shows no acute process. We initially discussed case with Dr. Morgan who was okay with patient being admitted for an echo and serial troponins and cardiac consult. Patient initially declined this and wanted to go home. Upon further conversations with the patient, patient did agree to stay. Patient was accepted by Dr. Johns. We will also consult cardiology and ordered an echo. Patient is in agreement with this. Patient discussed with Dr. Francis. (Chen Weldon) I discussed case with Dr. Morgan who agrees with admission for echo, serial enzymes and cardiology consultation. Patient family did request sound physicians. Patient has been admitted to Dr. Johns. Given her family history of brother dying of sudden cardiac , hypertrophic cardiomyopathy and CAD at age 30 it is recommended that she have a more complete evaluation at this time. (Valente Francis) Disposition Decision Date: 06/13/20 Decision Time: 16:50 <Chen Weldon - Last Filed: 06/13/20 18:11> <Valente Francis - Last Filed: 06/13/20 19:07> Clinical Impression: Chest pain, Dyspnea, Anxiety Disposition: ADMITTED IP TO THIS HOSP Condition: Stable
[2020-06-13 14:48] LABS: Basophils # (A) 0.1 k/uL (0-0.2); Basophils % (A) 0 %; Eosinophils # (A) 0.3 k/uL (0-0.7); Eosinophils % (A) 2 %; HCT 34.9 % (34.0-46.0); HGB 11.3 gm/dL (11.4-16.0); Hypochromasia Slight; Lymphocytes # (A) 3.1 k/uL (1.0-4.8); Lymphocytes % (A) 22 %; MCH 23.6 pg (25.0-35.0); MCHC 32.5 g/dL (31.0-37.0); MCV 72.6 fL (80.0-100.0); Mean Platelet Volume 6.4; Microcytosis Moderate; Monocytes # (A) 0.5 k/uL (0-1.0); Monocytes % (A) 3 %; Neutrophils # (A) 10.1 k/uL (1.3-7.7); Neutrophils % (A) 71 %; Platelet Count 364 k/uL (150-450); RBC 4.81 m/uL (3.80-5.40); RDW 15.5 % (11.5-15.5); WBC 14.1 k/uL (3.8-10.6)
[2020-06-13 14:57] LABS: Partial Thromboplastin Time 23.8 sec (22.0-30.0); Prothrombin Time 10.3 sec (9.0-12.0)
--- NOTE | 2020-06-13 15:00 | XR ---
EXAMINATION TYPE: XR chest 2V DATE OF EXAM: 06/13/2020 COMPARISON: Chest x-ray September 17, 2019 HISTORY: Chest pain and palpitations TECHNIQUE: Frontal and lateral views of the chest are obtained. FINDINGS: Low lung volumes redemonstrated. Overlying EKG leads noted. There is no focal air space op acity, pleural effusion, or pneumothorax seen. The cardiac silhouette size is within normal limits. The osseous structures are intact. IMPRESSION: No acute cardiopulmonary process. No significant change from prior.
[2020-06-13 15:01] LABS: ALT 11 U/L (4-34); AST 21 U/L (14-36); African American GFR (CKD) >90 (>60 ml/min/1.73 sqM); Albumin 3.9 g/dL (3.5-5.0); Alkaline Phosphatase 67 U/L (38-126); Anion Gap 9 mmol/L; Blood Urea Nitrogen 8 mg/dL (7-17); Calcium 9.1 mg/dL (8.4-10.2); Carbon Dioxide 23 mmol/L (22-30); Chloride 106 mmol/L (98-107); Glucose 82 mg/dL (74-99); Magnesium 1.9 mg/dL (1.6-2.3); Non-African American GFR(CKD) >90 (>60 ml/min/1.73 sqM); Potassium 4.3 mmol/L (3.5-5.1); Sodium 138 mmol/L (137-145); Total Bilirubin 0.4 mg/dL (0.2-1.3); Total Protein 7.5 g/dL (6.3-8.2)
[2020-06-13] MEDS ORDERED: LORazepam 2 MG/ML INJ IV PRN (16:43)
--- NOTE | 2020-06-13 18:00 | P.HPIM ---
History of Present Illness H&P Date: 06/13/20 Chief Complaint: chest pain Patient is a 25-year-old female with hypothyroidism, kidney stones, and prior GI bleed who presented to the hospital secondary to chest pain. In the ER she underwent an extensive evaluation. She was found to be hypertensive on arrival with a blood pressure of 156/103. Initial laboratory analysis showed white blood cell count 14.1, hemoglobin 11.3, troponin was negative. Initial EKG did not really reveal any significant ST-T segment changes. She was subsequently admitted for chest pain observation. Patient was assessed by her family at home prior to admission and was noted to have a blood pressure of 170/130 with a pulse of 1:30 at home. Her family members and nurse and palpated her pulse and felt that it was irregular with frequent PVCs. Patient also has a significant family history as her brother at age 30 in November 2019 secondary to sudden cardiac . On autopsy was noted that he had left ventricular hypertrophy, possible HOCM, and a 70% occlusion to the LAD. Patient seen and examined at bedside in the ER with family present. She woke up this morning with both chest pain and anxiety present. She describes the chest pain as retrosternal with radiation to the left lower breast. She denies any overt shortness of breath but did feel like it was hard to take a deep breath. She also notes significant palpitations and feeling like her heart was racing. She denies any numbness, tingling, lightheadedness, dizziness, or presyncope. She does have intermittent nausea which was acting up today. She notes that she has been having for months of flickering in her chest and feeling like someone is sitting on her chest. She does have significant anxiety and this has been worsening and family feels as though she may need medications adjusted. She denies any recent cough, cold, fever, flu. She has not recently started or stopped any medications. She does take control pills and the first day of her last menstrual period was approximately 2 weeks ago. Review of Systems Pertinent positives and negatives as discussed in HPI, a complete review of syst ems was performed and all other systems are negative. Past Medical History Past Medical History: GI Bleed, Skin Disorder, Thyroid Disorder Additional Past Medical History / Comment(s): Hx kidney stones, GI bleed DECEMBER 2018 & again 09/17/19 R/T excessive vomiting/dry heaves. 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 Anxiety History of Any Multi-Drug Resistant Organisms: None Reported Past Surgical History: Tonsillectomy Additional Past Surgical History / Comment(s): EGD 12/2018, lithotripsy with stent Past Anesthesia/Blood Transfusion Reactions: Motion Sickness Past Psychological History: Anxiety, Depression Smoking Status: Vaper Past Alcohol Use History: None Reported Past Drug Use History: Marijuana - Past Family History Mother Family Medical History: Cancer, Diabetes Mellitus, GERD/Reflux, Hypertension, Thyroid Disorder Additional Family Medical History / Comment(s): skin cancer Father Family Medical History: Diabetes Mellitus Brother(s) Additional Family Medical History / Comment(s): Sudden cardiac , LVH, LAD 70% occlusion Medications and Allergies Home Medications Medication Instructions Recorded Confirmed Type Levothyroxine Sodium [Synthroid] 50 mcg PO DAILY 02/28/18 06/13/20 History Venlafaxine HCl ER [Effexor XR] 150 mg PO DAILY 02/28/18 06/13/20 History Kurvelo 1 tab PO DAILY 11/06/18 06/13/20 History QUEtiapine [SEROquel] 25 - 50 mg PO HS 11/06/18 06/13/20 History lamoTRIgine [LaMICtal] 150 mg PO BID 11/06/18 06/13/20 History LORazepam [Ativan] 1 mg PO Q8H PRN 09/17/19 06/13/20 History Omeprazole 20 mg PO HS 06/13/20 06/13/20 History Allergies Allergy/AdvReac Type Severity Reaction Status Date / Time Milk Containing Products AdvReac Nausea & Verified 06/13/20 15:13 [Dairy] Vomiting & Diarrhea Physical Exam Osteopathic Statement: *. No significant issues noted on an osteopathic structural exam other than those noted in the History and Physical/Consult. Vitals: Vital Signs Temp Pulse Resp BP Pulse Ox 06/13/20 13:49 98.2 F 108 H 18 156/103 98 Intake and Output 06/13/20 06/13/20 06/13/20 06:59 14:59 22:59 Other: Weight 122.47 kg General: non toxic, no distress, appears at stated age, obese Derm: warm, dry Head: atraumatic, normocephalic, symmetric Eyes: EOMI, no lid lag, anicteric sclera, pupils equal round reactive to light ENT: Nose and ears atraumatic, no thrush, no pharyngeal erythema Neck: No thyromegaly, no cervical lymphadenopathy, trachea midline, supple Mouth: no lip lesion, mucus membranes moist Cardiovascular: S1S2 reg, no murmur, positive posterior tibial pulse bilateral, no edema, capillary refill less than 2 seconds, chest pain not reproducible Lungs: clear to ascultation bilateral, no ronchi, no rales, no wheeze, no accessory muscle use Abdominal: soft, nontender to palpation, no guarding, no appreciable organomegaly, normal bowel sounds Ext: no gross muscle atrophy, muscle strength muscle strength 5 out of 5 in all 4 extremities, no contractures Neuro: CN II-XI grossly intact, light touch intact all 4 extremities, finger to nose within normal limits, Psych: Alert, oriented, appropriate affect Results CBC & Chem 7: 06/13/20 14:40 06/13/20 14:40 Labs: Abnormal Lab Results - Last 24 Hours (Table) 06/13/20 Range/Units 14:40 WBC 14.1 H (3.8-10.6) k/uL Hgb 11.3 L (11.4-16.0) gm/dL MCV 72.6 L (80.0-100.0) fL MCH 23.6 L (25.0-35.0) pg Neutrophils # 10.1 H (1.3-7.7) k/uL Comments: EKG demonstrates normal sinus rhythm at a rate of 89, no significant ST segment changes, axis normal, GA 142, QRS 94, QT 364 Chest x-ray: report reviewed Thrombosis Risk Factor Assmnt - DVT/VTE Prophylaxis DVT/VTE Prophylaxis: Low risk, early ambulation encouraged Assessment and Plan Assessment: Chest pain with family history of sudden cardiac -Telemetry -Serial troponins -Cardiology consult -Echocardiogram -Check d-dimer to rule out pulmonary embolism as patient is obese and takes control pills -Aspirin -Check lipid profile Anxiety -Resume Effexor, Lamictal, Seroquel, and Ativan insert Hypothyroidism -Synthroid Obesity with BMI 52.7 -Recommended structured outpatient weight loss Gastritis -PPI The patient is placed in observation with an anticipated less than 2 midnight stay for evaluation of Chest Pain. Surrogate decision-maker: Mother DVT prophylaxis: Early ambulation Discussed with: patient Anticipated discharge date: in AM Anticipated discharge place: home A total of 65 minutes was spent on the care of this complex patient more than 50% of the time was spent in counseling and care coordination.
[2020-06-13] MEDS ORDERED: NICOTINE POLACRILEX 2 MG GUM BUCCAL PRN (18:03)
[2020-06-13] MEDS ORDERED: NALOXONE 0.4 MG/ML 1 ML VIAL IV PRN (18:03)
[2020-06-13] MEDS ORDERED: ONDANSETRON 4 MG/2 ML VIAL IVP PRN (18:03)
[2020-06-13] MEDS ORDERED: LORazepam 1 MG TAB PO PRN (18:06)
[2020-06-13] MEDS: ACETAMINOPHEN TAB 325 MG TAB PO PRN (19:45)
[2020-06-13] MEDS ORDERED: QUEtiapine 25 MG TAB PO SCH (21:00)
[2020-06-13] MEDS: lamoTRIgine 100 MG TAB PO SCH (21:01)
[2020-06-14] MEDS ORDERED: LEVOTHYROXINE 50 MCG TAB PO SCH (06:30)
[2020-06-14] MEDS ORDERED: PANTOPRAZOLE 40 MG TABLET PO SCH (07:30)
[2020-06-14 07:54] VITALS: PULSE 78; RESP 16; TEMP 98.4
[2020-06-14 07:57] VITALS: BP 131/82
[2020-06-14] MEDS: lamoTRIgine 100 MG TAB PO SCH (08:15)
[2020-06-14] MEDS ORDERED: lamoTRIgine 100 MG TAB PO SCH (09:00)
[2020-06-14] MEDS ORDERED: VENLAFAXINE HCL ER 150 MG CAP PO SCH (09:00)
[2020-06-14] MEDS ORDERED: KURVELO PO SCH (09:00)
[2020-06-14 10:22] LABS: HCT 35.9 % (37.2-46.3); HGB 10.4 g/dL (12.0-15.0); MCH 22.4 pg (27.0-32.0); MCV 77.4 fL (80.0-97.0); Mean Platelet Volume 9.3 fL (9.5-12.2); Platelet Count 415 X 10*3/uL (140-440); RBC 4.64 X 10*6/uL (4.10-5.20); RDW 16.3 % (11.5-14.5); WBC 11.31 X 10*3/uL (4.50-10.00)
[2020-06-14 10:29] LABS: Chol/HDL Ratio 5.74; LDL Cholesterol,Calculated 120.8 mg/dL (0.0-131.0); VLDL Calculation 40.2 mg/dL (5.00-40.00)
[2020-06-14] MEDS: ACETAMINOPHEN TAB 325 MG TAB PO PRN (11:09)
--- NOTE | 2020-06-14 11:43 | P.CRDCN ---
History of Present Illness Consult date: 06/14/20 History of present illness: CHIEF COMPLAINT: Chest pain, palpitations HISTORY OF PRESENT ILLNESS: This is a 25-year-old female with a past medical history significant for anxiety, depression, kidney stones, and hypothyroidism. 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 We have been asked to see the patient in consultation for chest pain and palpitations. Patient examined this morning at the bedside. Patient's mother present. Patient gives a history over the last 4 months of feeling intermittent palpitations and a squeezing sensation on the left side of her chest. She states that yesterday she went to work and was not feeling well. She reports feeling palpitations. She states her sister is a nurse and checked her pulse and found it to be fast and possibly irregular. Patient denies any chest pain or pressure this morning. She denies shortness of breath. She currently denies palpitations. It is noted that the patient's brother in November of 2019 from sudden cardiac . Patient's mother states that autopsy report revealed left ventricular hypertrophy, possible hypertrophic obstructive cardiomyopathy, and 70% occlusion of the LAD. DIAGNOSTICS: EKG reveals sinus mechanism with no signs of acute ischemia Chest xray negative for acute process Laboratory data: WBC 11.3. Hemoglobin 10.4. Platelet count 315. D-dimer 0.39. Sodium 138. Potassium 4.3. BUN 8. Creatinine 0.79. Troponin negative 3. TSH 2.890. Current home cardiac medications include none REVIEW OF SYSTEMS: At the time of my exam: CONSTITUTIONAL: Denies fever or chills. HEENT: Denies blurred vision, vision changes, or eye pain. Denies hemoptysis CARDIOVASCULAR: Denies chest pain, orthopnea, PND or palpitations RESPIRATORY: No shortness of breath. GASTROINTESTINAL: Denies abdominal pain. Denies nausea or vomiting. HEMATOLOGIC: Denies bleeding disorders. GENITOURINARY: Denies any blood in urine. SKIN: Denies pruitis. Denies rash. PHYSICAL EXAM: VITAL SIGNS: Reviewed. GENERAL: Well-developed in no acute distress. HEENT: Head is normocephalic. Pupils are equal, round. Sclerae anicteric. Mucous membranes of the mouth are moist. Neck supple. No JVD or thyromegaly LUNGS: Respirations even and unlabored. Lungs essentially clear to auscultation bilaterally. HEART: Regular rate and rhythm. S1 and S2 heard. ABDOMEN: Soft. Nondistended. Nontender. EXTREMITIES: Normal range of motion. No clubbing or cyanosis. Peripheral pulses intact. No lower extremity edema NEUROLOGIC: Awake and alert. Oriented x 3. ASSESSMENT: Chest pain, troponin negative x 3 Palpitations Family history of sudden cardiac Anxiety Hypothyroidism Obesity: BMI 52.7 PLAN: An acute coronary event has been ruled out Obtain 2D echo to assess cardiac structure and function Recommend monitoring patient on telemetry for [address] Heath spoke with mother at the bedside regarding genetic testing Patient to have stress test and further workup on an outpatient basis with Dr. Heath Nurse practitioner note has been reviewed by physician. Signing provider agrees with the documented findings, assessment, and plan of care. Past Medical History Past Medical History: GI Bleed, Skin Disorder, Thyroid Disorder Additional Past Medical History / Comment(s): Hx kidney stones, GI bleed DECEMBER 2018 & again 09/17/19 R/T excessive vomiting/dry heaves. 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 History of Any Multi-Drug Resistant Organisms: None Reported Past Surgical History: Tonsillectomy Additional Past Surgical History / Comment(s): EGD 12/2018, lithotripsy 2018. Past Anesthesia/Blood Transfusion Reactions: No Reported Reaction Past Psychological History: Anxiety, Depression Smoking Status: Current some day smoker Past Alcohol Use History: None Reported Additional Past Alcohol Use History / Comment(s): Smokes occ for past year on/off Past Drug Use History: Marijuana Additional Drug Use History / Comment(s): occ use - Past Family History Mother Family Medical History: Cancer, Diabetes Mellitus, GERD/Reflux, Hypertension, Thyroid Disorder Additional Family Medical History / Comment(s): skin cancer Father Family Medical History: Diabetes Mellitus Brother(s) Additional Family Medical History / Comment(s): Sudden cardiac , LVH, LAD 70% occlusion Medications and Allergies Home Medications Medication Instructions Recorded Confirmed Type Levothyroxine Sodium [Synthroid] 50 mcg PO DAILY 02/28/18 06/13/20 History Venlafaxine HCl ER [Effexor XR] 150 mg PO DAILY 02/28/18 06/13/20 History Kurvelo 1 tab PO DAILY 11/06/18 06/13/20 History QUEtiapine [SEROquel] 25 - 50 mg PO HS 11/06/18 06/13/20 History lamoTRIgine [LaMICtal] 150 mg PO BID 11/06/18 06/13/20 History LORazepam [Ativan] 1 mg PO Q8H PRN 09/17/19 06/13/20 History Omeprazole 20 mg PO HS 06/13/20 06/13/20 History Allergies Allergy/AdvReac Type Severity Reaction Status Date / Time Milk Containing Products AdvReac Nausea & Verified 06/13/20 15:13 [Dairy] Vomiting & Diarrhea Physical Exam Vitals: Vital Signs Temp Pulse Pulse Resp BP BP Pulse Ox 06/14/20 08:00 16 06/14/20 07:53 98.4 F 78 16 131/82 96 06/14/20 01:54 97.9 F 75 17 128/80 99 06/13/20 20:06 98.2 F 79 127/80 99 06/13/20 18:23 75 16 140/89 98 06/13/20 13:49 98.2 F 108 H 18 156/103 98 Intake and Output 06/13/20 06/14/20 06/14/20 22:59 06:59 14:59 Other: Voiding Method Toilet Toilet # Voids 1 Weight 122.47 kg Results 06/14/20 05:26 06/13/20 14:40 Cardiac Enzymes 06/13/20 06/13/20 06/13/20 Range/Units 14:40 14:40 17:40 AST 21 (14-36) U/L Troponin I <0.012 <0.012 (0.000-0.034) ng/mL 06/13/20 Range/Units 20:29 AST (14-36) U/L Troponin I <0.012 (0.000-0.034) ng/mL Coagulation 06/13/20 Range/Units 14:40 PT 10.3 (9.0-12.0) sec APTT 23.8 (22.0-30.0) sec Lipids 06/14/20 Range/Units 05:26 Triglycerides 201.0 H (0.0-149.0) mg/dL Cholesterol 195 (0-200) mg/dL HDL Cholesterol 34.0 L (40.0-60.0) mg/dL Cholesterol/HDL Ratio 5.74 CBC 06/13/20 06/14/20 Range/Units 14:40 05:26 WBC 14.1 H 11.31 H (3.8-10.6) k/uL RBC 4.81 4.64 (3.80-5.40) m/uL Hgb 11.3 L 10.4 L (11.4-16.0) gm/dL Hct 34.9 35.9 L (34.0-46.0) % Plt Count 364 415 (150-450) k/uL Comprehensive Metabolic Panel 06/13/20 Range/Units 14:40 Sodium 138 (137-145) mmol/L Potassium 4.3 (3.5-5.1) mmol/L Chloride 106 (98-107) mmol/L Carbon Dioxide 23 (22-30) mmol/L BUN 8 (7-17) mg/dL Creatinine 0.79 (0.52-1.04) mg/dL Glucose 82 (74-99) mg/dL Calcium 9.1 (8.4-10.2) mg/dL AST 21 (14-36) U/L ALT 11 (4-34) U/L Alkaline Phosphatase 67 (38-126) U/L Total Protein 7.5 (6.3-8.2) g/dL Albumin 3.9 (3.5-5.0) g/dL Current Medications Generic Name Dose Route Start Last Admin Trade Name Freq PRN Reason Stop Dose Admin Acetaminophen 650 mg 06/13/20 18:03 06/14/20 11:09 Acetaminophen Tab 325 Mg Tab PO 650 mg Q6HR PRN Administration Mild Pain or Fever > 100.5 Lamotrigine 150 mg 06/13/20 21:00 06/14/20 08:15 Lamotrigine 100 Mg Tab PO 150 mg BID MESSI Administration Levothyroxine Sodium 50 mcg 06/14/20 06:30 06/14/20 05:20 Levothyroxine 50 Mcg Tab PO 50 mcg DAILY@0630 MESSI Administration Lorazepam 1 mg 06/13/20 16:43 06/13/20 16:58 Lorazepam 2 Mg/Ml Inj IV 1 mg Q6HR PRN Administration Anxiety Lorazepam 1 mg 06/13/20 18:06 Lorazepam 1 Mg Tab PO Q8H PRN Anxiety Naloxone HCl 0.2 mg 06/13/20 18:03 Naloxone 0.4 Mg/Ml 1 Ml Vial IV Q2M PRN Opioid Reversal Nicotine Polacrilex 2 mg 06/13/20 18:03 Nicotine Polacrilex 2 Mg Gum BUCCAL Q2HR PRN Nicotine Cravings Non-Formulary Medication 1 tab 06/14/20 09:00 06/14/20 11:09 Kurvelo PO Not Given DAILY MESSI Ondansetron HCl 4 mg 06/13/20 18:03 Ondansetron 4 Mg/2 Ml Vial IVP Q8HR PRN Nausea And Vomiting Pantoprazole Sodium 40 mg 06/14/20 07:30 06/14/20 08:15 Pantoprazole 40 Mg Tablet PO 40 mg DAILY@0730 MESSI Administration Quetiapine Fumarate 25 mg 06/13/20 21:00 06/13/20 21:01 Quetiapine 25 Mg Tab PO 25 mg HS MESSI Administration Venlafaxine HCl 150 mg 06/14/20 09:00 06/14/20 08:15 Venlafaxine Hcl Er 150 Mg Cap PO 150 mg DAILY MESSI Administration Intake and Output 06/13/20 06/14/20 06/14/20 22:59 06:59 14:59 Other: Voiding Method Toilet Toilet # Voids 1 Weight 122.47 kg 06/14/20 05:26 06/13/20 14:40
--- NOTE | 2020-06-14 13:23 | P.DS ---
Providers Date of admission: 06/13/20 15:41 Expected date of discharge: 06/14/20 Attending physician: Modesta Hoffman DO Consults: 06/13/20 16:48 Consult Physician Urgent Consulting Provider: [facility] Consult Reason/Comments: dyspnea, chest pain Do you want consulting provider notified?: Yes Primary care physician: Joe Morgan [facility] Course: Discharge Diagnosis: Chest pain Dyslipidemia Anxiety Obesity with BMI 52.7 Hypothyroidism Gastritis Nicotine abuse (vaping) Hospital Course: Patient is a 25-year-old female with hypothyroidism, kidney stones, and prior GI bleed who presented to the hospital secondary to chest pain. In the ER she underwent an extensive evaluation. She was found to be hypertensive on arrival with a blood pressure of 156/103. Initial laboratory analysis showed white blood cell count 14.1, hemoglobin 11.3, troponin was negative. Initial EKG did not really reveal any significant ST-T segment changes. She was subsequently admitted for chest pain observation. Her troponins were trended and remained negative. There is no significant arrhythmic events noted on t elemetry. She was seen by cardiology who initially wanted her to stay for an additional 24 hours of monitoring, however this and felt a panic attack in the patient. After careful consideration was determined that she did follow up with cardiology in the office for further testing including possible event monitor and stress test. Her cholesterol levels did come back mildly elevated with an LDL of 120, triglycerides 201. We discussed the importance of diet modification and weight loss regarding her cholesterol levels and she is aware. She'll follow up with Dr. Morgan next week and Dr. Heath's office will call her with a follow-up appointment. Patient seen and examined at bedside. Upset, crying, and anxious. Initially she had been chest pain-free and had a good evening with no additional bout of palpitations or chest tightness, initially was upset that she had to stay another 24 hours in the hospital and she reports that hospital stays in the past. Vital signs reviewed and stable. General: non toxic, no distress, appears at stated age, Obese Derm: warm, dry Head: atraumatic, normocephalic, symmetric Eyes: EOMI, no lid lag, anicteric sclera Mouth: no lip lesion, mucus membranes moist Cardiovascular: S1S2 reg, no murmur, positive posterior tibial pulse bilateral, Lungs: Decreased breath sounds bilateral secondary to body habitus, no rhonchi, no rales , no accessory muscle use Abdominal: soft, nontender to palpation, no guarding, no appreciable organomegaly Ext: no gross muscle atrophy, no edema, no contractures Neuro: CN II-XI grossly intact, no focal neuro deficits Psych: Upset, crying A total of 25 minutes of time were spent preparing this complex discharge summary . Patient Condition at Discharge: Stable Plan - Discharge Summary New Discharge Prescriptions: Continue Venlafaxine HCl ER [Effexor XR] 150 mg PO DAILY Levothyroxine Sodium [Synthroid] 50 mcg PO DAILY lamoTRIgine [LaMICtal] 150 mg PO BID QUEtiapine [SEROquel] 25 - 50 mg PO HS [place]o 1 tab PO DAILY LORazepam [Ativan] 1 mg PO Q8H PRN PRN Reason: Anxiety Omeprazole 20 mg PO HS Discharge Medication List Levothyroxine Sodium [Synthroid] 50 mcg PO DAILY 02/28/18 [History] Venlafaxine HCl ER [Effexor XR] 150 mg PO DAILY 02/28/18 [History] Kurvelo 1 tab PO DAILY 11/06/18 [History] QUEtiapine [SEROquel] 25 - 50 mg PO HS 11/06/18 [History] lamoTRIgine [LaMICtal] 150 mg PO BID 11/06/18 [History] LORazepam [Ativan] 1 mg PO Q8H PRN 09/17/19 [History] Omeprazole 20 mg PO HS 06/13/20 [History] Follow up Appointment(s)/Referral(s): Alphonse Heath MD [STAFF PHYSICIAN] - 1 Week (Office will call the patient with appointment time) Joe Morgan DO [Primary Care Provider] - 1-2 days (Please call Tuesday morning to make appointment) Patient Instructions/Handouts: Chest Pain (DC), Cholesterol and Your Health (GEN), Mediterranean Diet (DC) Activity/Diet/Wound Care/Special Instructions: Activity: as tolerated Diet: low cholesterol ] Discharge Disposition: HOME SELF-CARE
--- NOTE | 2020-06-15 15:00 | ECHOF ---
Referral Reason:Chest pain, family history of hypertrophic cardiom MEASUREMENTS -------- HEIGHT: 154.9 cm WEIGHT: 122.5 kg BP: IVSd: 0.9 cm (0.6 - 1.1) LVIDd: 4.0 cm (3.9 - 5.3) LVPWd: 1.2 cm (0.6 - 1.1) IVSs: 1.7 cm LVIDs: 2.6 cm LVPWs: 1.7 cm RVIDd: 3.2 cm (< 3.3) LAESV Index (A-L): 13.89 ml/m Ao Diam: 2.5 cm (2.0 - 3.7) LA Diam: 3.1 cm (2.7 - 3.8) AV Cusp: 1.8 cm (1.5 - 2.6) EPSS: 0.3 cm MV E Tariq: 1.05 m/s MV DecT: 287 ms MV A Tariq: 0.28 m/s MV E/A Ratio: 3.80 RAP: 5.00 mmHg RVSP: 17.13 mmHg MV EF SLOPE: 189.46 mm/s (70 - 150) MV EXCURSION: 21.87 mm (> 18.000) FINDINGS -------- This was a technically good study. The left ventricular size is normal. There is borderline concentric left ventricular hypertrophy. Overall left ventricular systolic function is normal with, an EF between 55 - 60 %. The diastolic filling pattern is normal for the age of the patient 6.47. The right ventricle is normal in size. The left atrial size is normal. Normal LA size by volume 22+/-6 ml/m2. The right atrial size is normal. The aortic valve is trileaflet and appears structurally normal. The mitral valve is normal. There is trace mitral regurgitation. The tricuspid valve appears structurally normal. Trace tricuspid regurgitation present. Right cuco tricular systolic pressure is normal at < 35 mmHg. There is no pulmonic regurgitation present. The aortic root size is normal. Normal inferior vena cava with normal inspiratory collapse consistent with estimated right atrial pre ssure of 5 mmHg. There is no pericardial effusion. NO MID CAVITY OR LVOT GRADIENT CONCLUSIONS -------- 1. The left ventricular size is normal. 2. There is borderline concentric left ventricular hypertrophy. 3. Overall left ventricular systolic function is normal with, an EF between 55 - 60 %. 4. The diastolic filling pattern is normal for the age of the patient 6.47 5. There is trace mitral regurgitation. 6. Trace tricuspid regurgitation present. 7. There is no pericardial effusion. BAG MACHINE TENDER: Triny Donald RDCS
== END 2020-06-14 11:36 | disposition home or self-care (01) ==
LOC: EC 13:44 → 6NMEDSUR 15:41
PROVIDERS: ADMIT Internal Medicine; ATTEND Internal Medicine
DX: R07.89 Other chest pain (principal); R00.2 Palpitations; R00.0 Tachycardia, unspecified; R06.00 Dyspnea, unspecified; R03.0 Elevated blood-pressure reading, without diagnosis of hypertension; E03.9 Hypothyroidism, unspecified; E78.5 Hyperlipidemia, unspecified; F31.9 Bipolar disorder, unspecified; F41.0 Panic disorder [episodic paroxysmal anxiety]; K29.70 Gastritis, unspecified, without bleeding; Z91.011 Allergy to milk products; Z87.442 Personal history of urinary calculi; Z87.19 Personal history of other diseases of the digestive system; F17.200 Nicotine dependence, unspecified, uncomplicated; L98.9 Disorder of the skin and subcutaneous tissue, unspecified; I49.3 Ventricular premature depolarization; E66.9 Obesity, unspecified; Z68.43 Body mass index [BMI] 50.0-59.9, adult; Z79.899 Other long term (current) drug therapy; Z79.890 Hormone replacement therapy; Z79.3 Long term (current) use of hormonal contraceptives; Z80.8 Family history of malignant neoplasm of other organs or systems; Z83.3 Family history of diabetes mellitus; Z82.49 Family history of ischemic heart disease and other diseases of the circulatory system; Z83.79 Family history of other diseases of the digestive system; Z83.49 Family history of other endocrine, nutritional and metabolic diseases; Z82.41 Family history of sudden cardiac death; Z20.822 Contact with and (suspected) exposure to COVID-19
CPT/HCPCS: 93005 ×2; 96374; 99285; 36415; 93306; 85379; 80061; 80053; 84443; 83735; 84484; 85025; 85027; 85610; 85730; 87635; 71046; G0378 ×2; J2060

== ENCOUNTER 2020-07-12 22:20 | Emergency (ER) | payer BC ==
[2020-07-12 23:02] LABS: Appearance,Urine Cloudy (Clear); Bacteria,Urine Rare /hpf; Bilirubin,Urine 1+ (Negative); Blood,Urine Negative (Negative); Color,Urine Yellow; Glucose,Urine (UA) Negative (Negative); Ketones,Urine 1+ (Negative); Leukocyte Esterase,Urine Negative (Negative); Mucus,Urine Few /hpf; Nitrite,Urine Negative (Negative); Protein,Urine 2+ (Negative); RBC,Urine 2 /hpf (0-5); Specific Gravity,Urine 1.028 (1.001-1.035); Squamous Epithelial Cell,Urine 4 /hpf (0-4); WBC,Urine 3 /hpf (0-5)
[2020-07-12] MEDS ORDERED: SODIUM CHLORIDE 0.9% 1,000 ML IV STA (23:13)
[2020-07-12] MEDS ORDERED: ACETAMINOPHEN TAB 325 MG TAB PO STA (23:13)
[2020-07-12] MEDS ORDERED: IBUPROFEN 600 MG TAB PO STA (23:13)
[2020-07-12] MEDS ORDERED: ONDANSETRON 4 MG/2 ML VIAL IVP STA (23:13)
[2020-07-12] MEDS ORDERED: KETOROLAC 15 MG/ML 1 ML VIAL IVP STA (23:21)
[2020-07-13 00:45] LABS: ALT 18 U/L (4-34); AST 32 U/L (14-36); African American GFR (CKD) >90 (>60 ml/min/1.73 sqM); Albumin 4.3 g/dL (3.5-5.0); Alkaline Phosphatase 74 U/L (38-126); Anion Gap 12 mmol/L; Blood Urea Nitrogen 10 mg/dL (7-17); Calcium 8.7 mg/dL (8.4-10.2); Carbon Dioxide 21 mmol/L (22-30); Chloride 103 mmol/L (98-107); Glucose 103 mg/dL (74-99); Non-African American GFR(CKD) >90 (>60 ml/min/1.73 sqM); Sodium 136 mmol/L (137-145); Total Bilirubin 0.6 mg/dL (0.2-1.3); Total Protein 7.8 g/dL (6.3-8.2)
[2020-07-13] MEDS ORDERED: ONDANSETRON 4 MG/2 ML VIAL IVP STA (00:49)
--- NOTE | 2020-07-13 00:55 | ED ---
Nausea/Vomiting/Diarrhea HPI - General Chief complaint: Nausea/Vomiting/Diarrhea Stated complaint: Fever Time Seen by Provider: 07/12/20 23:13 Source: patient, RN notes reviewed Mode of arrival: ambulatory Limitations: no limitations - History of Present Illness Initial comments: Patient is a 25 she'll female presents with Spiriva complaining of nausea and vomiting with abdominal pain. She noted that she felt about the last 2 days she has been vomiting and nauseous and has not filled keep any food down. She notes that she is in a moderate amount of pain at about an 8 out of 10 currently that is unrelieved with any at home medications. She denied any change in diet or appetite. She states that she was most likely dehydrated and came to the em ergency department to get some fluids and nausea medication. She denied any chest pain shortness of breath headache diarrhea constipation fever fatigue chills weakness numbness tingling. - Related Data Home Medications Medication Instructions Recorded Confirmed Levothyroxine Sodium [Synthroid] 50 mcg PO DAILY 02/28/18 06/13/20 Venlafaxine HCl ER [Effexor XR] 150 mg PO DAILY 02/28/18 06/13/20 Kurvelo 1 tab PO DAILY 11/06/18 06/13/20 QUEtiapine [SEROquel] 25 - 50 mg PO HS 11/06/18 06/13/20 lamoTRIgine [LaMICtal] 150 mg PO BID 11/06/18 06/13/20 LORazepam [Ativan] 1 mg PO Q8H PRN 09/17/19 06/13/20 Omeprazole 20 mg PO HS 06/13/20 06/13/20 Previous Rx's Medication Instructions Recorded Ondansetron Odt [Zofran Odt] 4 mg PO Q8HR PRN #10 tab 07/13/20 Allergies Allergy/AdvReac Type Severity Reaction Status Date / Time Milk Containing Products AdvReac Nausea & Verified 07/12/20 22:22 [Dairy] Vomiting & Diarrhea Review of Systems ROS Statement: Those systems with pertinent positive or pertinent negative responses have been documented in the HPI. ROS Other: All systems not noted in ROS Statement are negative. Past Medical History Past Medical History: GI Bleed, Skin Disorder, Thyroid Disorder Additional Past Medical History / Comment(s): Hx kidney stones, GI bleed DECEMBER 2018 & again 09/17/19 R/T excessive vomiting/dry heaves. 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 History of Any Multi-Drug Resistant Organisms: None Reported Past Surgical History: Tonsillectomy Additional Past Surgical History / Comment(s): EGD 12/2018, lithotripsy 2018. Past Anesthesia/Blood Transfusion Reactions: No Reported Reaction Past Psychological History: Anxiety, Depression Smoking Status: Current some day smoker Past Alcohol Use History: None Reported Past Drug Use History: Marijuana - Past Family History Mother Family Medical History: Cancer, Diabetes Mellitus, GERD/Reflux, Hypertension, Thyroid Disorder Additional Family Medical History / Comment(s): skin cancer Father Family Medical History: Diabetes Mellitus Brother(s) Additional Family Medical History / Comment(s): Sudden cardiac , LVH, LAD 70% occlusion General Exam Limitations: no limitations General appearance: alert, in no apparent distress, obese Head exam: Present: atraumatic, normocephalic, normal inspection Eye exam: Present: normal appearance, PERRL, EOMI. Absent: scleral icterus, conjunctival injection, periorbital swelling ENT exam: Present: normal exam, mucous membranes moist Neck exam: Present: normal inspection. Absent: tenderness, meningismus, lymphadenopathy Respiratory exam: Present: normal lung sounds bilaterally. Absent: respiratory distress, wheezes, rales, rhonchi, stridor Cardiovascular Exam: Present: regular rate, normal rhythm, normal heart sounds. Absent: systolic murmur, diastolic murmur, rubs, gallop, clicks GI/Abdominal exam: Present: soft, tenderness (Generalized), hypoactive bowel sounds. Absent: distended, guarding, rebound, rigid Extremities exam: Present: normal inspection, full ROM, normal capillary refill. Absent: tenderness, pedal edema, joint swelling, calf tenderness Neurological exam: Present: alert, oriented X3, CN II-XII intact Psychiatric exam: Present: normal affect, normal mood Skin exam: Present: warm, dry, intact, normal color. Absent: rash Course Vital Signs 07/12/20 22:21 Temperature 100.4 F H Pulse Rate 104 H Respiratory 18 Rate Blood Pressure 164/90 O2 Sat by Pulse 96 Oximetry Medical Decision Making - Medical Decision Making 25 she'll female complaining of nausea and vomiting. Labs, 1 L normal saline, 15 mg of Toradol, and 650 mg of Tylenol ordered 8 mg of Zofran, CT of the abdomen pelvis. Labs unremarkable area CT of the abdomen and pelvis: Covid test ordered due to close living quarters with family or positive. Case discussed with Dr. Dumont, decided patient discharged home. - Lab Data Result diagrams: 07/13/20 00:13 07/13/20 00:13 Lab Results 07/12/20 07/12/20 07/13/20 Range/Units 22:27 22:27 00:13 WBC 4.1 (3.8-10.6) k/uL RBC 5.65 H (3.80-5.40) m/uL Hgb 12.8 (11.4-16.0) gm/dL Hct 40.7 (34.0-46.0) % MCV 72.2 L (80.0-100.0) fL MCH 22.7 L (25.0-35.0) pg MCHC 31.5 (31.0-37.0) g/dL RDW 16.1 H (11.5-15.5) % Plt Count 201 (150-450) k/uL MPV 6.7 Neutrophils % 78 % Lymphocytes % 14 % Monocytes % 6 % Eosinophils % 0 % Basophils % 0 % Neutrophils # 3.2 (1.3-7.7) k/uL Lymphocytes # 0.6 L (1.0-4.8) k/uL Monocytes # 0.3 (0-1.0) k/uL Eosinophils # 0.0 (0-0.7) k/uL Basophils # 0.0 (0-0.2) k/uL Hypochromasia Slight Anisocytosis Slight Microcytosis Moderate Sodium (137-145) mmol/L Potassium (3.5-5.1) mmol/L Chloride (98-107) mmol/L Carbon Dioxide (22-30) mmol/L Anion Gap mmol/L BUN (7-17) mg/dL Creatinine (0.52-1.04) mg/dL Est GFR (CKD-EPI)AfAm (>60 ml/min/1.73 sqM) Est GFR (CKD-EPI)NonAf (>60 ml/min/1.73 sqM) Glucose (74-99) mg/dL Calcium (8.4-10.2) mg/dL Total Bilirubin (0.2-1.3) mg/dL AST (14-36) U/L ALT (4-34) U/L Alkaline Phosphatase (38-126) U/L C-Reactive Protein (<10.0) mg/L Total Protein (6.3-8.2) g/dL Albumin (3.5-5.0) g/dL Urine Color Yellow Urine Appearance Cloudy H (Clear) Urine pH 6.0 (5.0-8.0) Ur Specific [place] 1.028 (1.001-1.035) Urine Protein 2+ H (Negative) Urine Glucose (UA) Negative (Negative) Urine Ketones 1+ H (Negative) Urine Blood Negative (Negative) Urine Nitrite Negative (Negative) Urine Bilirubin 1+ H (Negative) Urine Urobilinogen 3.0 (<2.0) mg/dL Ur Leukocyte Esterase Negative (Negative) Urine RBC 2 (0-5) /hpf Urine WBC 3 (0-5) /hpf Ur Squamous Epith Cells 4 (0-4) /hpf Urine Bacteria Rare H (None) /hpf Urine Mucus Few H (None) /hpf Urine HCG, Qual Not Detected (Not Detectd) 07/13/20 07/13/20 Range/Units 00:13 00:13 WBC (3.8-10.6) k/uL RBC (3.80-5.40) m/uL Hgb (11.4-16.0) gm/dL Hct (34.0-46.0) % MCV (80.0-100.0) fL MCH (25.0-35.0) pg MCHC (31.0-37.0) g/dL RDW (11.5-15.5) % Plt Count (150-450) k/uL MPV Neutrophils % % Lymphocytes % % Monocytes % % Eosinophils % % Basophils % % Neutrophils # (1.3-7.7) k/uL Lymphocytes # (1.0-4.8) k/uL Monocytes # (0-1.0) k/uL Eosinophils # (0-0.7) k/uL Basophils # (0-0.2) k/uL Hypochromasia Anisocytosis Microcytosis Sodium 136 L (137-145) mmol/L Potassium 4.0 (3.5-5.1) mmol/L Chloride 103 (98-107) mmol/L Carbon Dioxide 21 L (22-30) mmol/L Anion Gap 12 mmol/L BUN 10 (7-17) mg/dL Creatinine 0.84 (0.52-1.04) mg/dL Est GFR (CKD-EPI)AfAm >90 (>60 ml/min/1.73 sqM) Est GFR (CKD-EPI)NonAf >90 (>60 ml/min/1.73 sqM) Glucose 103 H (74-99) mg/dL Calcium 8.7 (8.4-10.2) mg/dL Total Bilirubin 0.6 (0.2-1.3) mg/dL AST 32 (14-36) U/L ALT 18 (4-34) U/L Alkaline Phosphatase 74 (38-126) U/L C-Reactive Protein 50.1 H (<10.0) mg/L Total Protein 7.8 (6.3-8.2) g/dL Albumin 4.3 (3.5-5.0) g/dL Urine Color Urine Appearance (Clear) Urine pH (5.0-8.0) Ur Specific [place] (1.001-1.035) Urine Protein (Negative) Urine Glucose (UA) (Negative) Urine Ketones (Negative) Urine Blood (Negative) Urine Nitrite (Negative) Urine Bilirubin (Negative) Urine Urobilinogen (<2.0) mg/dL Ur Leukocyte Esterase (Negative) Urine RBC (0-5) /hpf Urine WBC (0-5) /hpf Ur Squamous Epith Cells (0-4) /hpf Urine Bacteria (None) /hpf Urine Mucus (None) /hpf Urine HCG, Qual (Not Detectd) - Radiology Data Radiology results: report reviewed, image reviewed CT of abdomen and pelvis: Patchy glass opacities lower lung which is concerning for infectious process to include covid 19 Disposition Clinical Impression: Dehydration, Vomiting, Abdominal pain Disposition: HOME SELF-CARE Condition: Stable Instructions (If sedation given, give patient instructions): Acute Nausea and Vomiting (ED), Abdominal Pain (ED) Additional Instructions: Please return to the Emergency Department if symptoms worsen or any other concerns. Follow-up primary care in 2-4 days. Increase oral fluid intake. Take medication as prescribed. Prescriptions: Ondansetron Odt [Zofran Odt] 4 mg PO Q8HR PRN #10 tab PRN Reason: Nausea Is patient prescribed a controlled substance at d/c from ED?: No Referrals: Joe Morgan DO [Primary Care Provider] - 1-2 days Time of Disposition: 02:30
--- NOTE | 2020-07-13 01:01 | CT ---
EXAM: CT Abdomen and Pelvis With Intravenous Contrast CLINICAL HISTORY: ITS.REASON CT Reason: Abdominal pain, nausea, vomiting TECHNIQUE: Axial computed tomography images of the abdomen and pelvis with intravenous contrast. CTDI is 48.684 mGy and DLP is 2411.5 mGy-cm. This CT exam was performed using one or more of the following dose reduction techniques: automated exposure control, adjustment of the mA and/or kV according to patient size, and/or use of iterative reconstruction technique. COMPARISON: CT abdomen and pelvis dated 09/13/2019 FINDINGS: Lung bases: Patchy glass opacities in lower lungs which is concerning for infectious process to include COVID 19. ABDOMEN: Liver: Unremarkable. Gallbladder and bile ducts: Unremarkable. Pancreas: Unremarkable. Spleen: Unremarkable. Adrenals: Unremarkable. Kidneys and ureters: Unremarkable. Stomach and bowel: Unremarkable. PELVIS: Appendix: Appendix is unremarkable. Bladder: Unremarkable. Reproductive: Unremarkable as visualized. ABDOMEN and PELVIS: Intraperitoneal space: Unremarkable. Bones/joints: No acute fracture. No dislocation. Soft tissues: Unremarkable. Vasculature: Unremarkable. Lymph nodes: Unremarkable. IMPRESSION: Patchy glass opacities in lower lungs which is concerning for infectious process to include COVID 19.
[2020-07-13 01:17] LABS: Anisocytosis Slight; Basophils % (A) 0 %; Eosinophils % (A) 0 %; HCT 40.7 % (34.0-46.0); HGB 12.8 gm/dL (11.4-16.0); Hypochromasia Slight; Lymphocytes # (A) 0.6 k/uL (1.0-4.8); Lymphocytes % (A) 14 %; MCH 22.7 pg (25.0-35.0); MCHC 31.5 g/dL (31.0-37.0); MCV 72.2 fL (80.0-100.0); Mean Platelet Volume 6.7; Microcytosis Moderate; Monocytes # (A) 0.3 k/uL (0-1.0); Monocytes % (A) 6 %; Neutrophils # (A) 3.2 k/uL (1.3-7.7); Neutrophils % (A) 78 %; Platelet Count 201 k/uL (150-450); RBC 5.65 m/uL (3.80-5.40); RDW 16.1 % (11.5-15.5); WBC 4.1 k/uL (3.8-10.6)
[2020-07-13 03:33] VITALS: BP 128/72; PULSE 20; RESP 18; TEMP 99
== END 2020-07-13 03:00 | disposition home or self-care (01) ==
LOC: EC 22:20
DX: U07.1 COVID-19 (principal); E86.0 Dehydration; F17.200 Nicotine dependence, unspecified, uncomplicated; F41.9 Anxiety disorder, unspecified; F32.9 Major depressive disorder, single episode, unspecified; E07.9 Disorder of thyroid, unspecified; Z87.442 Personal history of urinary calculi; Z79.899 Other long term (current) drug therapy; Z79.890 Hormone replacement therapy
CPT/HCPCS: 99284 ×2; 96374 ×2; 96375 ×2; 96376 ×2; 96361 ×2; 36415; 80053; 85025; 86140; 81001; 81025; 87635; 74177; J2405 ×2; J1885; Q9967

== ENCOUNTER → 2020-09-25 | Outpatient (CLI) | payer BC ==
[2020-09-25 09:37] LABS: HCT 38.6 % (34.0-46.0); HGB 11.9 gm/dL (11.4-16.0); Hypochromasia Marked; MCH 23.2 pg (25.0-35.0); MCHC 30.9 g/dL (31.0-37.0); MCV 75.1 fL (80.0-100.0); Mean Platelet Volume 6.7; Microcytosis Slight; Platelet Count 387 k/uL (150-450); RBC 5.15 m/uL (3.80-5.40); RDW 15.3 % (11.5-15.5); WBC 11.2 k/uL (3.8-10.6)
== END | disposition home or self-care (01) ==
LOC: LABPAT 07:33
PROVIDERS: ATTEND Surgery
DX: Z01.812 Encounter for preprocedural laboratory examination (principal)
CPT/HCPCS: 85027

== ENCOUNTER 2020-09-26 06:30 | Day surgery (SDC) | payer BC ==
[2020-09-23 14:57] VITALS: BMI 52.7
[~2020-09-26 06:30] MED LIST changes: +ACETAMINOPHEN TAB 500 MG TAB PO PRN; -DEXAMETHASONE SOD PHOSPHATE 10 MG/ML 1 ML VIAL IV ONE; +DEXAMETHASONE SOD PHOSPHATE 4 MG/ML 1 ML VIAL IV ONE; +HEPARIN SODIUM,PORCINE/PF 5,000 UNIT/0.5 ML SYRINGE SQ PRN; +Pre Op ABX Message 1 EACH MISC MISCELLANE ONE
[2020-09-26] MEDS ORDERED: HYDROmorphone 0.5 MG/0.5 ML SYRINGE IVP PRN (07:00)
[2020-09-26] MEDS ORDERED: LIDOCAINE 1% (10MG/ML) FOR IV START INTRADERMA ONE (07:02)
[2020-09-26] MEDS ORDERED: SUCCINYLCHOLINE CHLORIDE 100 MG/5 ML SYR IV ONE (07:41)
[2020-09-26] MEDS ORDERED: PROPOFOL 10 MG/ML 20 ML VIAL IV ONE (07:41)
[2020-09-26] MEDS ORDERED: ROCURONIUM 10 MG/ML (5 ML VIAL) IV ONE (07:41)
[2020-09-26] MEDS ORDERED: GLYCOPYRROLATE 0.2 MG/ML 2 ML VIAL ONE (07:41)
[2020-09-26] MEDS ORDERED: MIDAZOLAM 2 MG/2 ML VIAL ONE (07:41)
[2020-09-26] MEDS ORDERED: LIDOCAINE 1% INJ 10MG/ML (20 ML MDV) ONE (07:41)
[2020-09-26] MEDS ORDERED: fentaNYL (PF) 50 MCG/ML 2 ML AMP ONE (07:41)
[2020-09-26] MEDS ORDERED: NEOSTIGMINE 1 MG/ML 10 ML VIAL ONE (07:41)
[2020-09-26] MEDS ORDERED: SODIUM CHLORIDE 0.9% 100 ML with ceFAZolin 3,000 MG IV ONE ×2 (08:13)
[2020-09-26] MEDS ORDERED: BUPIVACAINE (PF) 0.5% 30 ML VIAL SQ ONE (08:19)
[2020-09-26] MEDS ORDERED: BACITRACIN OINT 1 EACH PACKET TOPICAL ONE (08:32)
[2020-09-26] MEDS ORDERED: NALOXONE 0.4 MG/ML 1 ML VIAL IV PRN (09:05)
--- NOTE | 2020-09-26 09:10 | P.OP ---
Date of Procedure: 09/26/20 Procedure(s) Performed: PREOPERATIVE DIAGNOSIS: Hidradenitis right neck and right axilla POSTOPERATIVE DIAGNOSIS: Same PROCEDURE: Excision hidradenitis right neck and right axilla with intermediate closure SURGEON: Yoandy EBL: Erika Hebert ANESTHESIA: Gen. COMPLICATIONS: None OPERATIVE PROCEDURE: Patient place in the operating table in the supine position. She was placed under general anesthesia she was then placed in the left decubitus position. The right posterior lateral neck was prepped and draped sterilely. The patient's active and recurrent area of hidradenitis was then excised using an elliptical incision encompassing both the indurated subcutaneous tissues and skin as well as the 3 sinus openings that were present. Size of excision 3.5 x 2.5 cm. This was sent to pathology. The area was irrigated. Subcutaneous tissues were then closed using interrupted 3-0 Vicryl sutures. Skin was then closed using interrupted horizontal 4-0 nylon mattress sutures. Patient was then placed supine after a sterile dressing was applied. The right axilla was prepped and draped sterilely. An elliptical incision was made here measuring 4.5 x 2.5 cm. This encompassed the active recurrent hidradenitis sinus opening. Saphenous tissues were again irrigated. Closure took place using interrupted 3-0 Vicryl sutures in the subcutaneous layer and a running 4-0 nylon suture. Sterile dressings were applied. Length of intermediate closure 8 cm. DISPOSITION: Stable to recovery room
[2020-09-26 09:14] VITALS: TEMP 98
[2020-09-26 09:29] VITALS: RESP 16
[2020-09-26 10:16] VITALS: BP 134/87; PULSE 66
== END 2020-09-26 10:35 | disposition home or self-care (01) ==
LOC: OR 06:30
PROVIDERS: ATTEND Surgery
DX: L73.2 Hidradenitis suppurativa (principal); E03.9 Hypothyroidism, unspecified; Z79.899 Other long term (current) drug therapy; Z98.890 Other specified postprocedural states; F17.210 Nicotine dependence, cigarettes, uncomplicated; F31.9 Bipolar disorder, unspecified; Z91.011 Allergy to milk products; E66.01 Morbid (severe) obesity due to excess calories; Z68.43 Body mass index [BMI] 50.0-59.9, adult
CPT/HCPCS: 11450; 11424; 12042; 81025; 88304; J2250; J1100; J2710; J2405; J0690; J2001; J3010; J0330; J2704; J1644

== ENCOUNTER → 2021-03-31 | Outpatient (CLI) | payer BC ==
--- NOTE | 2021-04-01 10:02 | CT ---
EXAMINATION TYPE: CT abdomen pelvis wo con DATE OF EXAM: 03/31/2021 HISTORY: Bilateral flank pain, history of kidney stones. CT DLP: 1322 mGycm. Automated Exposure Control for Dose Reduction was Utilized. TECHNIQUE: CT scan of the abdomen and pelvis is performed without oral or IV contrast. COMPARISON: CT abdomen and pelvis July 13, 2020 and older CTs FINDINGS: Within the limitations of a non-contrast study, the following observations are made. LUNG BASES: No significant abnormality is appreciated. LIVER/GB: Gallbladder redemonstrated with distended margins but no surrounding inflammatory change. S table mild hepatomegaly. PANCREAS: No significant abnormality is seen. SPLEEN: Mild splenomegaly at 14.1 cm long axis axial image 45 unchanged from prior studies. ADRENALS: No significant abnormality is seen. KIDNEYS: No definite nephrolithiasis bilaterally on current study. No hydronephrosis or obstructing u reteral calculi are identified currently. No intraluminal calculi in poorly distended bladder seen cu rrently. Calcified left pelvic phlebolith redemonstrated axial image 140. BOWEL: No suspicious abnormality. UTERUS/ADNEXA: Anteverted uterus redemonstrated. Normal-sized ovaries redemonstrated axial image 134 on current exam. LYMPH NODES: No new greater than 1cm abdominal or pelvic lymph nodes are appreciated. OSSEOUS STRUCTURES: No significant abnormality is seen. OTHER: No significant additional abnormality is seen. IMPRESSION: No renal calculi identified on current study. No new or acute findings seen to account fo r patient's symptoms on current study.
== END | disposition home or self-care (01) ==
LOC: RADCTMAIN 16:01
PROVIDERS: ATTEND Family Medicine
DX: N20.0 Calculus of kidney (principal)
CPT/HCPCS: 74176

== ENCOUNTER 2023-03-07 12:29 | Emergency (ER) | payer BC ==
[2023-03-07 12:52] VITALS: TEMP 98
[2023-03-07] MEDS ORDERED: SODIUM CHLORIDE 0.9% 1,000 ML IV ONE (13:09)
[2023-03-07] MEDS ORDERED: FAMOTIDINE 20 MG/2 ML VIAL IV STA (13:10)
[2023-03-07] MEDS ORDERED: ONDANSETRON 4 MG/2 ML VIAL IVP STA ×2 (13:10→18:28)
--- NOTE | 2023-03-07 13:11 | ED ---
Abdominal Pain HPI - General Source: patient, RN notes reviewed Mode of arrival: ambulatory Limitations: no limitations <Henrik Toro - Last Filed: 03/07/23 13:10> <Gisselle Morfin - Last Filed: 03/07/23 18:14> - General Chief Complaint: Abdominal Pain Stated Complaint: fainting, puking numbness Time Seen by Provider: 03/07/23 13:10 - History of Present Illness Initial Comments: 28-year-old female presents emergency Department with chief complaint of nausea vomiting diarrhea abdominal pain. Patient states sudden onset this morning. She states she feels very lightheaded, does not feel well. She feels like she is going to pass out. She denies any chest pain. Patient denies any sick contacts no prior bowel infections (Henrik Toro) Patient is a 28-year-old female with history of hypertension, recurring kidney stones and hypothyroidism presents emergency room In by her mother for vomiting and abdominal pain. Patient woke up at 4 AM with vomiting. She states after multiple episodes of vomiting she started to develop severe left-sided abdominal pain. Patient states she has a history of frequent vomiting caused by different food ALLERGIES. She denies any history of diverticulitis. Patient states this feels different than when she's had kidney stones. She denies any dysuria hematuria or urinary frequency. Patient denies any cough congestion or fevers. Denies any Diarrhea. (Gisselle Morfin) - Related Data Home Medications Medication Instructions Recorded Confirmed Venlafaxine HCl ER [Effexor XR] 150 mg PO DAILY 02/28/18 03/07/23 QUEtiapine [SEROquel] 25 mg PO HS 11/06/18 03/07/23 LORazepam [Ativan] 1 mg PO DAILY PRN 09/17/19 03/07/23 Losartan Potassium [Cozaar] 50 mg PO DAILY 07/14/22 03/07/23 hydroCHLOROthiazide 12.5 mg PO DAILY 07/14/22 03/07/23 Albuterol Sulfate [Albuterol 1 - 2 puff PO RT-Q6H PRN 03/07/23 03/07/23 Sulfate Hfa] Kurvelo 1 tab PO DAILY 03/07/23 03/07/23 Previous Rx's Medication Instructions Recorded Ketorolac [Toradol] 10 mg PO Q8HR #15 tab 03/07/23 Ondansetron Odt [Zofran Odt] 4 mg PO Q6HR PRN #20 tab 03/07/23 Allergies Allergy/AdvReac Type Severity Reaction Status Date / Time gluten AdvReac Nausea & Verified 03/07/23 17:58 Vomiting & Diarrhea Milk Containing Products AdvReac Nausea & Verified 03/07/23 17:58 (Dairy) Vomiting & [Dairy] Diarrhea Review of Systems ROS Other: All systems not noted in ROS Statement are negative. <Henrik Toro - Last Filed: 03/07/23 13:10> ROS Other: All systems not noted in ROS Statement are negative. <Gisselle Morfin - Last Filed: 03/07/23 18:14> ROS Statement: Those systems with pertinent positive or pertinent negative responses have been documented in the HPI. Past Medical History Past Medical History: GI Bleed, Skin Disorder, Thyroid Disorder Additional Past Medical History / Comment(s): Hx kidney stones, GI bleed DECEMBER 2018 & again 09/17/19 R/T excessive vomiting/dry heaves. 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 History of Any Multi-Drug Resistant Organisms: None Reported Past Surgical History: Tonsillectomy Additional Past Surgical History / Comment(s): EGD 12/2018, lithotripsy 2018. Past Anesthesia/Blood Transfusion Reactions: No Reported Reaction Past Psychological History: Anxiety, Depression Smoking Status: Vaper Past Alcohol Use History: None Reported Past Drug Use History: Marijuana - Past Family History Mother Family Medical History: Cancer, Diabetes Mellitus, GERD/Reflux, Hypertension, Thyroid Disorder Additional Family Medical History / Comment(s): skin cancer Father Family Medical History: Diabetes Mellitus Brother(s) Additional Family Medical History / Comment(s): Sudden cardiac , LVH, LAD 70% occlusion <Henrik Toro - Last Filed: 03/07/23 13:10> General Exam Limitations: no limitations <Henrik Toro - Last Filed: 03/07/23 13:10> General appearance: alert, in no apparent distress, anxious Head exam: Present: atraumatic Eye exam: Present: normal appearance ENT exam: Present: normal exam Neck exam: Present: normal inspection Respiratory exam: Present: normal lung sounds bilaterally Cardiovascular Exam: Present: regular rate, normal rhythm GI/Abdominal exam: Present: soft, other (Left lower abdominal pain, no rebound tenderness, no abdominal distention. Morbid obesity, no CVA tenderness) <Gisselle Morfin - Last Filed: 03/07/23 18:14> - General Exam Comments Initial Comments: Visual Physical Exam Vital signs reviewed General: Well-appearing, nontoxic, no acute distress. Head: Normocephalic, atraumatic Eyes: PERRLA, EOMI ENT: Airway patent Chest: Nonlabored breathing Skin: No visual rash, normal skin tone Neuro: Alert and oriented 3 Musculoskeletal: No gross abnormalities (Henrik Toro) Course <Gisselle Morfin - Last Filed: 03/07/23 18:14> Vital Signs 03/07/23 03/07/23 03/07/23 12:40 14:04 17:34 Temperature 98 F Pulse Rate 82 82 117 H Respiratory 16 24 20 Rate Blood Pressure 144/86 144/86 157/96 O2 Sat by Pulse 100 100 100 Oximetry - Reevaluation(s) Reevaluation #1: 03/07/23 18:06 Patient is feeling better currently. Denies any medicine and morphine. I discussed lab and imaging results with patient. Patient has been elevated white count likely from vomiting. There is no signs of infection urine is unremarkable. Discussed management with the patient mother bedside. I discussed following up with outpatient medicine and GI specialist for continued persistent vomiting and pain. We discussed signs return to emergency room including worsening pain, development of fever or uncontrolled vomiting or new concerning symptoms. 03/07/23 18:06 03/07/23 18:07 (Gisselle Morfin) Medical Decision Making <Henrik Toro - Last Filed: 03/07/23 13:10> - Lab Data Result diagrams: 03/07/23 13:17 03/07/23 13:17 - Radiology Data Radiology results: report reviewed, image reviewed <Gisselle Morfin - Last Filed: 03/07/23 18:14> - Medical Decision Making I performed a quick note portion of this chart signed Henrik Toro PA-C (Henrik Toro) Was pt. sent in by a medical professional or institution (, PA, RN LPN CNA, urgent care, hospital, or fpc...) When possible be specific @ -[No] Did you speak to anyone other than the patient for history (EMS, parent, family, police, friend...)? What history was obtained from this source @ -Yes mother bedside Did you review nursing and triage notes (agree or disagree)? Why? @ -[I reviewed and agree with nursing and triage notes] Were old charts reviewed (outside hosp., previous admission, EMS record, old EKG, old radiological studies, urgent care reports/EKG's, fpc records)? Report findings @ Yes old charts were reviewed] Differential Diagnosis (chest pain, altered mental status, abdominal pain women, abdominal pain men, vaginal bleeding, weakness, fever, dyspnea, syncope, headache, dizziness, GI bleed, back pain, seizure, CVA, palpatations, mental health, musculoskeletal)? @ -Abdominal pain, gastroenteritis, diverticulitis, gastroparesis, colitis, IBS EKG interpreted by me (3pts min.). @ -[As above] X-rays interpreted by me (1pt min.). @ -[None done] CT interpreted by me (1pt min.). @ -CT is negative for any diverticulitis, bowel obstruction, mass or other acute changes. Radiology report pending for confirmation U/S interpreted by me (1pt. min.). @ -Ultrasound is negative for ovarian torsion, obvious endometriosis or other acute changes. What testing was considered but not performed or refused? (CT, X-rays, U/S, labs)? Why? @ -[None] What meds were considered but not given or refused? Why? @ -[None] Did you discuss the management of the patient with other professionals (professionals i.e. , PA, RN LPN CNA, lab, RT, psych nurse, social worker psychiatric, accessories repairer, teacher, traffic division commanding officer, rifle case repairer)? Give summary @ -[yes I discused patients symptoms, workup and disposition with attending ED lissett ruelas today.] Was smoking cessation discussed for >3mins.? @ -[No] Was critical care preformed (if so, how long)? @ -[No] Were there social determinants of health that impacted care today? How? (Homelessness, low income, unemployed, alcoholism, drug addiction, transportation, low edu. Level, literacy, decrease access to med. care, [facility], rehab)? @ -[No] Was there de-escalation of care discussed even if they declined (Discuss DNR or withdrawal of care, Hospice)? DNR status @ -[No] What co-morbidities impacted this encounter? (DM, HTN, Smoking, COPD, CAD, Cancer, CVA, ARF, Chemo, Hep., AIDS, mental health diagnosis, sleep apnea, morbid obesity)? @ -[None] Was patient admitted / discharged? Hospital course, mention meds given and ro claire, prescriptions, significant lab abnormalities, going to OR and other pertinent info. @ -Patient is feeling better at this time. She will be discharged home with Toradol and Zofran for pain and vomiting. I discussed following up a GI specialist and bumper and painter for continued pain. Discussed signs return to the emergency room including but not limited to any uncontrolled pain, uncontrolled vomiting, development of fevers or new concerning symptoms. Patient and mother understand and agree with this plan. Undiagnosed new problem with uncertain prognosis? @ -[No] Drug Therapy requiring intensive monitoring for toxicity (Heparin, Nitro, Insulin, Cardizem)? @ -[No] Were any procedures done? @ -[No] Diagnosis/symptom? @ -Vomiting, abdominal pain Acute, or Chronic, or Acute on Chronic? @ -Acute Uncomplicated (without systemic symptoms) or Complicated (systemic symptoms)? @ -[default] Side effects of treatment? @ -[No] Exacerbation, Progression, or Severe Exacerbation? @ -[No] Poses a threat to life or bodily function? How? (Chest pain, USA, PR, pneumonia, PE, COPD, DKA, ARF, appy, cholecystitis, CVA, Diverticulitis, Homicidal, Suicidal, threat to staff... and all critical care pts) @ -[No] (Gisselle Morfin) - Lab Data Lab Results 03/07/23 03/07/23 03/07/23 Range/Units 13:17 13:17 13:17 WBC 17.5 H (3.8-10.6) k/uL RBC 5.24 (3.80-5.40) m/uL Hgb 14.1 (11.4-16.0) gm/dL Hct 42.9 (34.0-46.0) % MCV 81.9 (80.0-100.0) fL MCH 26.8 (25.0-35.0) pg MCHC 32.8 (31.0-37.0) g/dL RDW 15.4 (11.5-15.5) % Plt Count 443 (150-450) k/uL MPV 7.4 Neutrophils % 81 % Lymphocytes % 13 % Monocytes % 3 % Eosinophils % 3 % Basophils % 0 % Neutrophils # 14.2 H (1.3-7.7) k/uL Lymphocytes # 2.2 (1.0-4.8) k/uL Monocytes # 0.4 (0-1.0) k/uL Eosinophils # 0.5 (0-0.7) k/uL Basophils # 0.1 (0-0.2) k/uL Sodium 139 (137-145) mmol/L Potassium 4.6 (3.5-5.1) mmol/L Chloride 105 (98-107) mmol/L Carbon Dioxide 16 L (22-30) mmol/L Anion Gap 18 mmol/L BUN 10 (7-17) mg/dL Creatinine 0.69 (0.52-1.04) mg/dL Est GFR (CKD-EPI)AfAm >90 (>60 ml/min/1.73 sqM) Est GFR (CKD-EPI)NonAf >90 (>60 ml/min/1.73 sqM) Glucose 118 H (74-99) mg/dL Lactic Ac Sepsis Rflx Plasma Lactic Acid Von 4.6 H* (0.7-2.0) mmol/L Calcium 9.8 (8.4-10.2) mg/dL Total Bilirubin 0.7 (0.2-1.3) mg/dL AST 29 (14-36) U/L ALT 30 (4-34) U/L Alkaline Phosphatase 63 (38-126) U/L Total Protein 8.5 H (6.3-8.2) g/dL Albumin 4.6 (3.5-5.0) g/dL Lipase 79 (23-300) U/L Urine Color Urine Appearance (Clear) Urine pH (5.0-8.0) Ur Specific [place] (1.001-1.035) Urine Protein (Negative) Urine Glucose (UA) (Negative) Urine Ketones (Negative) Urine Blood (Negative) Urine Nitrite (Negative) Urine Bilirubin (Negative) Urine Urobilinogen (<2.0) mg/dL Ur Leukocyte Esterase (Negative) Urine RBC (0-5) /hpf Urine WBC (0-5) /hpf Ur Squamous Epith Cells (0-4) /hpf Urine Bacteria (None) /hpf Urine Mucus (None) /hpf Urine HCG, Qual (Not Detectd) 03/07/23 03/07/23 03/07/23 Range/Units 13:50 15:30 15:30 WBC (3.8-10.6) k/uL RBC (3.80-5.40) m/uL Hgb (11.4-16.0) gm/dL Hct (34.0-46.0) % MCV (80.0-100.0) fL MCH (25.0-35.0) pg MCHC (31.0-37.0) g/dL RDW (11.5-15.5) % Plt Count (150-450) k/uL MPV Neutrophils % % Lymphocytes % % Monocytes % % Eosinophils % % Basophils % % Neutrophils # (1.3-7.7) k/uL Lymphocytes # (1.0-4.8) k/uL Monocytes # (0-1.0) k/uL Eosinophils # (0-0.7) k/uL Basophils # (0-0.2) k/uL Sodium (137-145) mmol/L Potassium (3.5-5.1) mmol/L Chloride (98-107) mmol/L Carbon Dioxide (22-30) mmol/L Anion Gap mmol/L BUN (7-17) mg/dL Creatinine (0.52-1.04) mg/dL Est GFR (CKD-EPI)AfAm (>60 ml/min/1.73 sqM) Est GFR (CKD-EPI)NonAf (>60 ml/min/1.73 sqM) Glucose (74-99) mg/dL Lactic Ac Sepsis Rflx Y Plasma Lactic Acid Von (0.7-2.0) mmol/L Calcium (8.4-10.2) mg/dL Total Bilirubin (0.2-1.3) mg/dL AST (14-36) U/L ALT (4-34) U/L Alkaline Phosphatase (38-126) U/L Total Protein (6.3-8.2) g/dL Albumin (3.5-5.0) g/dL Lipase (23-300) U/L Urine Color Light Yellow Urine Appearance Clear (Clear) Urine pH 6.5 (5.0-8.0) Ur Specific [place] >1.050 H (1.001-1.035) Urine Protein Trace H (Negative) Urine Glucose (UA) Negative (Negative) Urine Ketones 2+ H (Negative) Urine Blood Large H (Negative) Urine Nitrite Negative (Negative) Urine Bilirubin Negative (Negative) Urine Urobilinogen <2.0 (<2.0) mg/dL Ur Leukocyte Esterase Negative (Negative) Urine RBC 91 H (0-5) /hpf Urine WBC <1 (0-5) /hpf Ur Squamous Epith Cells 8 H (0-4) /hpf Urine Bacteria Rare H (None) /hpf Urine Mucus Rare H (None) /hpf Urine HCG, Qual Not Detected (Not Detectd) 03/07/23 Range/Units 15:50 WBC (3.8-10.6) k/uL RBC (3.80-5.40) m/uL Hgb (11.4-16.0) gm/dL Hct (34.0-46.0) % MCV (80.0-100.0) fL MCH (25.0-35.0) pg MCHC (31.0-37.0) g/dL RDW (11.5-15.5) % Plt Count (150-450) k/uL MPV Neutrophils % % Lymphocytes % % Monocytes % % Eosinophils % % Basophils % % Neutrophils # (1.3-7.7) k/uL Lymphocytes # (1.0-4.8) k/uL Monocytes # (0-1.0) k/uL Eosinophils # (0-0.7) k/uL Basophils # (0-0.2) k/uL Sodium (137-145) mmol/L Potassium (3.5-5.1) mmol/L Chloride (98-107) mmol/L Carbon Dioxide (22-30) mmol/L Anion Gap mmol/L BUN (7-17) mg/dL Creatinine (0.52-1.04) mg/dL Est GFR (CKD-EPI)AfAm (>60 ml/min/1.73 sqM) Est GFR (CKD-EPI)NonAf (>60 ml/min/1.73 sqM) Glucose (74-99) mg/dL Lactic Ac Sepsis Rflx Plasma Lactic Acid Von 2.4 H* (0.7-2.0) mmol/L Calcium (8.4-10.2) mg/dL Total Bilirubin (0.2-1.3) mg/dL AST (14-36) U/L ALT (4-34) U/L Alkaline Phosphatase (38-126) U/L Total Protein (6.3-8.2) g/dL Albumin (3.5-5.0) g/dL Lipase (23-300) U/L Urine Color Urine Appearance (Clear) Urine pH (5.0-8.0) Ur Specific [place] (1.001-1.035) Urine Protein (Negative) Urine Glucose (UA) (Negative) Urine Ketones (Negative) Urine Blood (Negative) Urine Nitrite (Negative) Urine Bilirubin (Negative) Urine Urobilinogen (<2.0) mg/dL Ur Leukocyte Esterase (Negative) Urine RBC (0-5) /hpf Urine WBC (0-5) /hpf Ur Squamous Epith Cells (0-4) /hpf Urine Bacteria (None) /hpf Urine Mucus (None) /hpf Urine HCG, Qual (Not Detectd) Disposition <Henrik Toro - Last Filed: 03/07/23 13:10> Is patient prescribed a controlled substance at d/c from ED?: No If prescribed controlled substance>3 days was MAPS reviewed?: No Time of Disposition: 18:14 <Gisselle Morfin - Last Filed: 03/07/23 18:14> Clinical Impression: Abdominal pain, Vomiting Disposition: HOME SELF-CARE Condition: Good Instructions (If sedation given, give patient instructions): Abdominal Pain (ED), Acute Nausea and Vomiting (ED) Referrals: Joe Morgan DO [Primary Care Provider] - 1-2 days
[2023-03-07 13:20] LABS: Basophils # (A) 0.1 k/uL (0-0.2); Basophils % (A) 0 %; Eosinophils # (A) 0.5 k/uL (0-0.7); Eosinophils % (A) 3 %; HCT 42.9 % (34.0-46.0); HGB 14.1 gm/dL (11.4-16.0); Lymphocytes # (A) 2.2 k/uL (1.0-4.8); Lymphocytes % (A) 13 %; MCH 26.8 pg (25.0-35.0); MCHC 32.8 g/dL (31.0-37.0); MCV 81.9 fL (80.0-100.0); Mean Platelet Volume 7.4; Monocytes # (A) 0.4 k/uL (0-1.0); Monocytes % (A) 3 %; Neutrophils # (A) 14.2 k/uL (1.3-7.7); Neutrophils % (A) 81 %; Platelet Count 443 k/uL (150-450); RBC 5.24 m/uL (3.80-5.40); RDW 15.4 % (11.5-15.5); WBC 17.5 k/uL (3.8-10.6)
[2023-03-07 13:33] LABS: ALT 30 U/L (4-34); African American GFR (CKD) >90 (>60 ml/min/1.73 sqM); Albumin 4.6 g/dL (3.5-5.0); Anion Gap 18 mmol/L; Blood Urea Nitrogen 10 mg/dL (7-17); Calcium 9.8 mg/dL (8.4-10.2); Carbon Dioxide 16 mmol/L (22-30); Chloride 105 mmol/L (98-107); Glucose 118 mg/dL (74-99); Lipase 79 U/L (23-300); Non-African American GFR(CKD) >90 (>60 ml/min/1.73 sqM); Sodium 139 mmol/L (137-145); Total Bilirubin 0.7 mg/dL (0.2-1.3); Total Protein 8.5 g/dL (6.3-8.2)
[2023-03-07 13:37] LABS: AST 29 U/L (14-36); Alkaline Phosphatase 63 U/L (38-126); Potassium 4.6 mmol/L (3.5-5.1)
[2023-03-07] MEDS ORDERED: MORPHINE SULFATE 4 MG/ML SYRINGE IVP STA ×2 (14:04→18:25)
--- NOTE | 2023-03-07 15:32 | CT ---
EXAMINATION TYPE: CT abdomen pelvis w con CT DLP: 2856.9 mGycm, Automated exposure control for dose reduction was used. DATE OF EXAM: 03/07/2023 3:05 PM COMPARISON: CT abdomen pelvis most recent from 07/14/2022 . CLINICAL INDICATION:Female, 28 years old with history of abdominal pain; Abdominal pain and vomiting TECHNIQUE: Standard CT of the abdomen and pelvis following the administration of 100 cc of Isovue 3 00 IV contrast material. Coronal and sagittal reformats were performed. FINDINGS: LOWER CHEST: Unremarkable ABDOMEN LIVER: Unremarkable GALLBLADDER AND BILE DUCTS: Mildly distended gallbladder demonstrate. No biliary ductal dilatation. PANCREAS: Unremarkable. SPLEEN: Unremarkable. ADRENAL GLANDS: Unremarkable. KIDNEYS AND URETERS: No evidence of hydronephrosis or renal calculus. The kidneys enhance symmetrical ly. Contrast demonstrated within both collecting systems on the delayed phase. PELVIS BLADDER: Under distended, limiting evaluation. REPRODUCTIVE: Unremarkable. ABDOMEN & PELVIS STOMACH AND BOWEL: Stomach and duodenum are unremarkable. No focal wall thickening or surrounding inf lammatory changes. The appendix is within normal limits. No evidence of bowel obstruction. PERITONEUM: No evidence of pneumoperitoneum or free fluid. VASCULATURE: No evidence of aortic aneurysm. Pelvic phlebolith on the left redemonstrated. MUSCULOSKELETAL: No acute osseous abnormalities. Mild retrolisthesis of L5 on S1. LYMPH NODES: No gross evidence for lymphadenopathy. SOFT TISSUE/ABDOMINAL WALL: Unremarkable IMPRESSION: No acute abdominal/pelvic process. No obstructive uropathy.
[2023-03-07 16:21] LABS: Appearance,Urine Clear (Clear); Bacteria,Urine Rare /hpf; Bilirubin,Urine Negative (Negative); Blood,Urine Large (Negative); Color,Urine Light Yellow; Glucose,Urine (UA) Negative (Negative); Ketones,Urine 2+ (Negative); Leukocyte Esterase,Urine Negative (Negative); Mucus,Urine Rare /hpf; Nitrite,Urine Negative (Negative); PH, Urine 6.5 (5.0-8.0); Protein,Urine Trace (Negative); RBC,Urine 91 /hpf (0-5); Squamous Epithelial Cell,Urine 8 /hpf (0-4); Urobilinogen,Urine <2.0 mg/dL (<2.0); WBC,Urine <1 /hpf (0-5)
[2023-03-07 16:30] LABS: Specific Gravity,Urine >1.050 (1.001-1.035)
--- NOTE | 2023-03-07 16:40 | US ---
EXAMINATION TYPE: US pelvis complete transvag DATE OF EXAM: 03/07/2023 COMPARISON: CT, US CLINICAL INDICATION: Female, 28 years old with history of Left lower pelvic pain; Pain in the left up per abdomen x 12 hours. Vomiting. G0. TECHNIQUE: Transvaginal (TV) and Transabdominal (TA) . Transabdominal sonographic images of the pel vis were acquired. Transabdominal sonographic images were medically necessary to better assess the f ollowing anatomy: left ovary. Date of LMP: 02/28/2023 EXAM MEASUREMENTS: Uterus: 7.6 x 4.7 x 3.2 cm Endometrial Stripe: 0.38 cm Right Ovary: 3.8 x 2.1 x 2.1 cm Left Ovary: 2.8 x 1.7 x 1.7 cm 1. Uterus: Anteverted Some anechoic fluid seen in cervix: 2.4 x 1.1 x 0.4 cm. Anechoic areas seen in cervix, largest seen measures: 1.1 x 0.6 x 0.5 cm. 2. Endometrium: 0.38 cm 3. Right Ovary: Appears wnl 4. Left Ovary: Seen transabdominally only. Spectral, color and waveform doppler imaging shows arterial and venous flow within the right ovary. Left ovary was not seen transvaginally. Left ovary was seen transabdominal- arterial flow was seen within the left ovary, probable venous flow was seen within the left ovary. Venous waveform was limi gema in visibility possibly due to patient body habitus. 5. Bilateral Adnexa: Appear wnl 6. Posterior cul-de-sac: Minimal fluid seen in CDS. IMPRESSION: . 1. No evidence for acute pelvic process. The left ovary is visualized and there is arterial and spec tral waveforms visualized on transabdominal imaging. 2. Appropriate arterial and venous spectral waveforms to the ovaries.
[2023-03-07 17:42] VITALS: BP 157/96; PULSE 117
[2023-03-07] MEDS ORDERED: KETOROLAC 15 MG/ML 1 ML VIAL IVP STA (18:25)
[2023-03-07 18:44] VITALS: RESP 18
== END 2023-03-07 18:40 | disposition home or self-care (01) ==
LOC: EC 12:29
DX: R10.32 Left lower quadrant pain (principal); R11.2 Nausea with vomiting, unspecified; F12.90 Cannabis use, unspecified, uncomplicated; F17.290 Nicotine dependence, other tobacco product, uncomplicated; Z86.59 Personal history of other mental and behavioral disorders; Z91.011 Allergy to milk products; Z91.018 Allergy to other foods
CPT/HCPCS: 99284 ×2; 96374 ×2; 96375 ×4; 96376 ×3; 96361 ×3; 36415; 80053; 83605; 83690; 85025; 81001; 81025; 93975; 76856; 76830; 74177; J2270; J2405; J3490; J1885; Q9967

== ENCOUNTER 2023-03-10 03:56 | Emergency (ER) | payer BC ==
[2023-03-10] MEDS ORDERED: MORPHINE SULFATE 4 MG/ML SYRINGE IV STA ×2 (04:38→06:03)
[2023-03-10] MEDS ORDERED: SODIUM CHLORIDE 0.9% 1,000 ML IV STA (04:38)
--- NOTE | 2023-03-10 05:07 | ED ---
General Adult HPI - General Chief complaint: Abdominal Pain Stated complaint: Abd pain,vomitting,diarrhea Time Seen by Provider: 03/10/23 04:38 Source: patient Mode of arrival: ambulatory Limitations: no limitations - History of Present Illness Initial comments: Dictation was produced using [employer] dictation software. please excuse any grammatical, word or spelling errors. Chief Complaint: 28-year-old male presents to the ER again for abdominal pain nausea vomiting diarrhea History of Present Illness: 28-year-old female presents emergency Department with acute onset nausea vomiting diarrhea. Patient was seen in the emergency de partment 4 days ago for the same complaint. She's been having symptoms for 5 days. 4 days ago patient had extensive workup to identify possible abdominal symptoms. No obvious cause. Patient states that her pain has been persistent. Located to the periumbilical area. She has been having non-bilious nonbloody emesis. She's also been having some watery diarrhea. Denies any fever or constitutional symptoms. The ROS documented in this emergency department record has been reviewed and confirmed by me. Those systems with pertinent positive or negative responses have been documented in the HPI. All other systems are other negative and/or noncontributory. - Related Data Home Medications Medication Instructions Recorded Confirmed Venlafaxine HCl ER [Effexor XR] 150 mg PO DAILY 02/28/18 03/07/23 QUEtiapine [SEROquel] 25 mg PO HS 11/06/18 03/07/23 LORazepam [Ativan] 1 mg PO DAILY PRN 09/17/19 03/07/23 Losartan Potassium [Cozaar] 50 mg PO DAILY 07/14/22 03/07/23 hydroCHLOROthiazide 12.5 mg PO DAILY 07/14/22 03/07/23 Albuterol Sulfate [Albuterol 1 - 2 puff PO RT-Q6H PRN 03/07/23 03/07/23 Sulfate Hfa] Kurvelo 1 tab PO DAILY 03/07/23 03/07/23 Previous Rx's Medication Instructions Recorded Ketorolac [Toradol] 10 mg PO Q8HR #15 tab 03/07/23 Ondansetron Odt [Zofran Odt] 4 mg PO Q6HR PRN #20 tab 03/07/23 Sucralfate [Carafate] 1 gm PO BID #16 tablet 03/07/23 Allergies Allergy/AdvReac Type Severity Reaction Status Date / Time gluten AdvReac Nausea & Verified 03/10/23 04:04 Vomiting & Diarrhea Milk Containing Products AdvReac Nausea & Verified 03/10/23 04:04 (Dairy) Vomiting & [Dairy] Diarrhea Review of Systems ROS Statement: Those systems with pertinent positive or pertinent negative responses have been documented in the HPI. ROS Other: All systems not noted in ROS Statement are negative. Past Medical History Past Medical History: GI Bleed, Skin Disorder, Thyroid Disorder Additional Past Medical History / Comment(s): Hx kidney stones, GI bleed DECEMBER 2018 & again 09/17/19 R/T excessive vomiting/dry heaves. 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 History of Any Multi-Drug Resistant Organisms: None Reported Past Surgical History: Tonsillectomy Additional Past Surgical History / Comment(s): EGD 12/2018, lithotripsy 2018. Past Anesthesia/Blood Transfusion Reactions: No Reported Reaction Past Psychological History: Anxiety, Depression Smoking Status: Vaper Past Alcohol Use History: None Reported Past Drug Use History: Marijuana - Past Family History Mother Family Medical History: Cancer, Diabetes Mellitus, GERD/Reflux, Hypertension, Thyroid Disorder Additional Family Medical History / Comment(s): skin cancer Father Family Medical History: Diabetes Mellitus Brother(s) Additional Family Medical History / Comment(s): Sudden cardiac , LVH, LAD 70% occlusion General Exam - General Exam Comments Initial Comments: PHYSICAL EXAM: General Impression: Alert and oriented x3, acute distress secondary to pain HEENT: Normocephalic atraumatic, extra-ocular movements intact, pupils equal and reactive to light bilaterally, mucous membranes moist. Cardiovascular: Heart regular rate and rhythm Chest: Able to complete full sentences, no retractions, no tachypnea Abdomen: abdomen soft, tenderness to the entire abdomen, non-distended, no organomegaly Musculoskeletal: Pulses present and equal in all extremities, no peripheral edema Motor: no focal deficits noted Neurological: CN II-XII grossly intact, no focal motor or sensory deficits noted Skin: Intact with no visualized rashes Psych: Normal affect and mood Limitations: no limitations Course Vital Signs 03/10/23 03/10/23 04:04 06:49 Temperature 98.5 F Pulse Rate 94 68 Respiratory 26 H 16 Rate Blood Pressure 168/106 123/76 O2 Sat by Pulse 97 96 Oximetry Medical Decision Making - Medical Decision Making Was pt. sent in by a medical professional or institution (MARILIN Bray, ENGINEERING ADMINISTRATOR, urgent care, hospital, or [facility]...) When possible be specific @ -No Did you speak to anyone other than the patient for history (EMS, parent, family, police, friend...)? What history was obtained from this source @ -No Did you review nursing and triage notes (agree or disagree)? Why? @ -I reviewed and agree with nursing and triage notes Were old charts reviewed (outside hosp., previous admission, EMS record, old EKG, old radiological studies, urgent care reports/EKG's, [facility] records)? Report findings @ -No old charts were reviewed Differential Diagnosis (chest pain, altered mental status, abdominal pain women, abdominal pain men, vaginal bleeding, musculoskeletal, weakness, fever, dyspnea, syncope, headache, dizziness, GI bleed, back pain, seizure, CVA, palpatations, mental health)? @ -Differential Abdominal Pain Women: Appendicitis, Cholecystitis, diverticulosis, ischemic bowel, pancreatitis, hepatitis, UTI, gastroenteritis, AAA, incarcerated hernia, bowel obstruction, constipation, inflammatory bowel, hepatitis, peptic ulcer disease, splenic infarction, perforated viscus, vulvitis, ovarian torsion, PID, kidney stone, pl acenta abruption, this is not meant to be an all-inclusive list EKG interpreted by me (3pts min.). @ -None done X-rays interpreted by me (1pt min.). @ -None done CT interpreted by me (1pt min.). @ -Computed tomography scan of the abdomen and pelvis shows no acute processes. U/S interpreted by me (1pt. min.). @ -None done What testing was considered but not performed or refused? (CT, X-rays, U/S, labs)? Why? @ -None What meds were considered but not given or refused? Why? @ -None Did you discuss the management of the patient with other professionals (professionals i.e. MARILIN Bray, ENGINEERING ADMINISTRATOR, lab, RT, psych nurse, social media editor, picture enlarger, teacher, real estate loan officer, clinical case manager)? Give summary @ -No Was smoking cessation discussed for >3mins.? @ -No Was critical care preformed (if so, how long)? @ -No Were there social determinants of health that impacted care today? How? (Homelessness, low income, unemployed, alcoholism, drug addiction, banks sportation, low edu. Level, literacy, decrease access to med. care, shelter, rehab)? @ -No Was there de-escalation of care discussed even if they declined (Discuss DNR or withdrawal of care, Hospice)? DNR status @ -No What co-morbidities impacted this encounter? (DM, HTN, Smoking, COPD, CAD, Cancer, CVA, ARF, Chemo, Hep., AIDS, mental health diagnosis, sleep apnea, morbid obesity)? @ -None Was patient admitted / discharged? Hospital course, mention meds given and route, prescriptions, significant lab abnormalities, going to OR and other pertinent info. @ -28 Year-old female who presents to the emergency department for abdominal cramping and GI symptoms. Vital signs upon arrival are within acceptable limits. Labs are within acceptable limits. HCG is negative. Given patient's initial presentation and computed tomography scan was reordered showing no acute processes. Patient given analgesics and antiemetics with complete resolution of symptoms. Patient discharged advised follow-up with primary care doctor. Undiagnosed new problem with uncertain prognosis? @ -No Drug Therapy requiring intensive monitoring for toxicity (Heparin, Nitro, Insulin, Cardizem)? @ -No Were any procedures done? @ -No Diagnosis/symptom? Acute, or Chronic, or Acute on Chronic? Uncomplicated (without systemic symptoms) or Complicated (systemic symptoms)? @ -Gastroenteritis Side effects of treatment? @ -No Exacerbation, Progression, or Severe Exacerbation? @ -No Poses a threat to life or bodily function? How? (Chest pain, [place], ND, pneumonia, PE, COPD, DKA, ARF, appy, cholecystitis, CVA, Diverticulitis, Homicidal, Suicidal, threat to staff... and all critical care pts) @ -yes - Lab Data Result diagrams: 03/10/23 04:54 03/10/23 04:54 Lab Results 03/10/23 03/10/23 03/10/23 Range/Units 04:54 04:54 04:54 WBC 15.4 H (3.8-10.6) k/uL RBC 4.70 (3.80-5.40) m/uL Hgb 12.5 (11.4-16.0) gm/dL Hct 38.3 (34.0-46.0) % MCV 81.5 (80.0-100.0) fL MCH 26.6 (25.0-35.0) pg MCHC 32.7 (31.0-37.0) g/dL RDW 15.7 H (11.5-15.5) % Plt Count 364 (150-450) k/uL MPV 8.1 Neutrophils % 77 % Lymphocytes % 14 % Monocytes % 4 % Eosinophils % 4 % Basophils % 0 % Neutrophils # 11.8 H (1.3-7.7) k/uL Lymphocytes # 2.2 (1.0-4.8) k/uL Monocytes # 0.6 (0-1.0) k/uL Eosinophils # 0.6 (0-0.7) k/uL Basophils # 0.1 (0-0.2) k/uL PT 11.1 (10.0-12.5) sec INR 1.0 (<1.2) APTT 23.6 (22.0-30.0) sec Sodium (137-145) mmol/L Potassium (3.5-5.1) mmol/L Chloride (98-107) mmol/L Carbon Dioxide (22-30) mmol/L Anion Gap mmol/L BUN (7-17) mg/dL Creatinine (0.52-1.04) mg/dL Est GFR (CKD-EPI)AfAm (>60 ml/min/1.73 sqM) Est GFR (CKD-EPI)NonAf (>60 ml/min/1.73 sqM) Glucose (74-99) mg/dL Plasma Lactic Acid Von (0.7-2.0) mmol/L Calcium (8.4-10.2) mg/dL Magnesium (1.6-2.3) mg/dL Total Bilirubin (0.2-1.3) mg/dL AST (14-36) U/L ALT (4-34) U/L Alkaline Phosphatase (38-126) U/L Total Protein (6.3-8.2) g/dL Albumin (3.5-5.0) g/dL Urine HCG, Qual Not Detected (Not Detectd) 03/10/23 03/10/23 Range/Units 04:54 04:54 WBC (3.8-10.6) k/uL RBC (3.80-5.40) m/uL Hgb (11.4-16.0) gm/dL Hct (34.0-46.0) % MCV (80.0-100.0) fL MCH (25.0-35.0) pg MCHC (31.0-37.0) g/dL RDW (11.5-15.5) % Plt Count (150-450) k/uL MPV Neutrophils % % Lymphocytes % % Monocytes % % Eosinophils % % Basophils % % Neutrophils # (1.3-7.7) k/uL Lymphocytes # (1.0-4.8) k/uL Monocytes # (0-1.0) k/uL Eosinophils # (0-0.7) k/uL Basophils # (0-0.2) k/uL PT (10.0-12.5) sec INR (<1.2) APTT (22.0-30.0) sec Sodium 136 L (137-145) mmol/L Potassium 5.8 H (3.5-5.1) mmol/L Chloride 105 (98-107) mmol/L Carbon Dioxide 18 L (22-30) mmol/L Anion Gap 13 mmol/L BUN 10 (7-17) mg/dL Creatinine 0.89 (0.52-1.04) mg/dL Est GFR (CKD-EPI)AfAm >90 (>60 ml/min/1.73 sqM) Est GFR (CKD-EPI)NonAf 88 (>60 ml/min/1.73 sqM) Glucose 120 H (74-99) mg/dL Plasma Lactic Acid Von 2.7 H* (0.7-2.0) mmol/L Calcium 9.4 (8.4-10.2) mg/dL Magnesium 1.8 (1.6-2.3) mg/dL Total Bilirubin 1.3 (0.2-1.3) mg/dL AST 58 H (14-36) U/L ALT 21 (4-34) U/L Alkaline Phosphatase 53 (38-126) U/L Total Protein 8.6 H (6.3-8.2) g/dL Albumin 4.5 (3.5-5.0) g/dL Urine HCG, Qual (Not Detectd) Disposition Clinical Impression: Gastroenteritis Disposition: HOME SELF-CARE Condition: Good Instructions (If sedation given, give patient instructions): Gastroenteritis (ED) Is patient prescribed a controlled substance at d/c from ED?: No Referrals: Joe Morgan DO [Primary Care Provider] - 1-2 days Time of Disposition: 07:43
[2023-03-10] MEDS ORDERED: FAMOTIDINE 20 MG/2 ML VIAL IV STA (05:12)
[2023-03-10] MEDS ORDERED: ONDANSETRON 4 MG/2 ML VIAL IVP STA (05:12)
[2023-03-10 05:34] LABS: Basophils # (A) 0.1 k/uL (0-0.2); Basophils % (A) 0 %; Eosinophils # (A) 0.6 k/uL (0-0.7); Eosinophils % (A) 4 %; HCT 38.3 % (34.0-46.0); HGB 12.5 gm/dL (11.4-16.0); Lymphocytes # (A) 2.2 k/uL (1.0-4.8); Lymphocytes % (A) 14 %; MCH 26.6 pg (25.0-35.0); MCHC 32.7 g/dL (31.0-37.0); MCV 81.5 fL (80.0-100.0); Mean Platelet Volume 8.1; Monocytes # (A) 0.6 k/uL (0-1.0); Monocytes % (A) 4 %; Neutrophils # (A) 11.8 k/uL (1.3-7.7); Neutrophils % (A) 77 %; Platelet Count 364 k/uL (150-450); RDW 15.7 % (11.5-15.5); WBC 15.4 k/uL (3.8-10.6)
[2023-03-10 05:56] LABS: ALT 21 U/L (4-34); AST 58 U/L (14-36); African American GFR (CKD) >90 (>60 ml/min/1.73 sqM); Albumin 4.5 g/dL (3.5-5.0); Alkaline Phosphatase 53 U/L (38-126); Anion Gap 13 mmol/L; Blood Urea Nitrogen 10 mg/dL (7-17); Calcium 9.4 mg/dL (8.4-10.2); Carbon Dioxide 18 mmol/L (22-30); Chloride 105 mmol/L (98-107); Glucose 120 mg/dL (74-99); Magnesium 1.8 mg/dL (1.6-2.3); Non-African American GFR(CKD) 88 (>60 ml/min/1.73 sqM); Sodium 136 mmol/L (137-145); Total Bilirubin 1.3 mg/dL (0.2-1.3); Total Protein 8.6 g/dL (6.3-8.2)
[2023-03-10 05:58] LABS: Potassium 5.8 mmol/L (3.5-5.1)
[2023-03-10 06:00] LABS: Partial Thromboplastin Time 23.6 sec (22.0-30.0); Prothrombin Time 11.1 sec (10.0-12.5)
[2023-03-10 06:55] VITALS: RESP 16
--- NOTE | 2023-03-10 07:25 | CT ---
EXAMINATION TYPE: CT abdomen pelvis w con CT DLP: 3217.40 mGycm, Automated exposure control for dose reduction was used. DATE OF EXAM: 03/10/2023 6:38 AM COMPARISON: CT abdomen pelvis most recent from 03/07/2023 CLINICAL INDICATION:Female, 28 years old with history of severe abdominal pain; Severe abdominal pain TECHNIQUE: Axial CT of the ;CT abdomen pelvis w con;Sagittal and coronal reformats were created on a separate workstation. Contrast used:100 ml mL of Isovue 300 with IV Contrast, (none if empty) Oral contrast used: with Oral Contrast (none if empty) FINDINGS: LOWER CHEST: Unremarkable ABDOMEN LIVER: Unremarkable GALLBLADDER AND BILE DUCTS: Unremarkable. PANCREAS: Unremarkable. SPLEEN: Unremarkable. ADRENAL GLANDS: Unremarkable. KIDNEYS AND URETERS: No evidence of hydronephrosis or renal calculus. The ureters are unremarkable. PELVIS BLADDER: Unremarkable REPRODUCTIVE: Unremarkable. ABDOMEN & PELVIS STOMACH AND BOWEL: No evidence of bowel obstruction. The appendix is normal. PERITONEUM/RETROPERITONEUM: No evidence of pneumoperitoneum or free fluid. VASCULATURE: No evidence of aortic aneurysm. MUSCULOSKELETAL: No acute osseous abnormalities. Mild disc degeneration changes are present throughou t the thoracolumbar spine. LYMPH NODES: No gross evidence for lymphadenopathy. SOFT TISSUE/ABDOMINAL WALL: Fat-containing umbilical hernia. IMPRESSION: No acute abdominal process.
[2023-03-10 08:50] VITALS: BP 153/103; PULSE 88; TEMP 98.2
== END 2023-03-10 08:33 | disposition home or self-care (01) ==
LOC: EC 03:56
DX: K52.9 Noninfective gastroenteritis and colitis, unspecified (principal); F41.9 Anxiety disorder, unspecified; F32.A Depression, unspecified; F17.200 Nicotine dependence, unspecified, uncomplicated; F12.90 Cannabis use, unspecified, uncomplicated; Z79.899 Other long term (current) drug therapy; Z91.018 Allergy to other foods; Z91.011 Allergy to milk products
CPT/HCPCS: 36415; 80053; 83605; 83735; 85025; 85610; 85730; 81025; 74177; 99284; 96374; 96375 ×2; 96376; 96361; J2270; J2405; J3490; Q9967

== ENCOUNTER 2023-12-16 20:50 | Emergency (ER) | payer BC ==
[2023-12-16] MEDS ORDERED: HYDROmorphone 1 MG/ML 1 ML SYRINGE ONE (22:39)
[2023-12-16] MEDS ORDERED: KETOROLAC 15 MG/ML 1 ML VIAL ONE (22:39)
== END 2023-12-16 23:00 | disposition home or self-care (01) ==
LOC: EC 20:50
CPT/HCPCS: 56420; 96372; 99283